=== PATIENT | male | born 1960 ===

== ENCOUNTER 2018-03-10 17:38 | Inpatient (IN) | payer MEDICAID, OTHER ==
[~2018-03-10] VITALS: Ht 175.3 cm; Wt 90.2 kg
[2018-03-10 18:19] LABS: BASOPHILS # (AUTO) 0.04 x10^3/uL (0-0.1); BASOPHILS % (AUTO) 0 % (0-1); EOSINOPHILS # (AUTO) 0.29 x10^3/uL (0-0.4); EOSINOPHILS % (AUTO) 2 % (1-7); LYMPHOCYTES # (AUTO) 0.57 x10^3/uL (1-3.4); LYMPHOCYTES % (AUTO) 4 % (22-44); MD NO; MEAN CORPUSCULAR HEMOGLOBIN 29.8 pg (27.5-34.5); MEAN CORPUSCULAR HGB CONC 32.9 g/dL (33.2-36.2); MEAN CORPUSCULAR VOLUME 90.6 fL (81-97); MEAN PLATELET VOLUME 7.1 fL (7.4-10.4); MONOCYTES # (AUTO) 0.69 x10^3/uL (0.2-0.8); MONOCYTES % (AUTO) 5 % (2-9); NEUTROPHILS # (AUTO) 11.15 x10^3/uL (1.8-6.8); NEUTROPHILS % (AUTO) 88 % (42-75); PLATELET COUNT 311 x10^3/uL (130-400); RED BLOOD COUNT 3.58 x10^6/uL (4.38-5.82); RED CELL DISTRIBUTION WIDTH 16.4 % (9.4-14.8)
[2018-03-10 18:30] LABS: ALBUMIN 1.4 g/dL (3.4-5.0); ANION GAP 5 mmol/L (5-15); CALCIUM 7.8 mg/dL (8.5-10.1); CHLORIDE 107 mmol/L (98-107); CREATININE 1.12 mg/dL (0.7-1.3)
[2018-03-10] MEDS ORDERED: PIPERACILLIN/TAZO/PMX 3.375GM 50 ML IV ONE (18:30)
[2018-03-10] MEDS ORDERED: PIPERACILLIN/TAZO/PMX 3.375GM 50 ML ONE (18:30)
[2018-03-10] MEDS ORDERED: VANCOMYCIN PER PHARMACY MC ONE (18:30)
[2018-03-10 18:41] LABS: TROPONIN I 0.229 ng/mL (0.000-0.045)
[2018-03-10] MEDS ORDERED: VANCOMYCIN 2,100 MG in SODIUM CHLORIDE 0.9% 500 ML IV ONE (19:00)
--- NOTE | 2018-03-10 19:00 | NUR ---
received report from fatomuata gatica. this rn will resume care at this time.
--- NOTE | 2018-03-10 19:05 | NUR ---
pts b/l legs elevated with pillows and heels floating. previous rn attempted iv multiple times and this rn asked fatoumata mahmood to use u/s to start iv. rn busy at this time but will attempt to start iv. pt asking for something to eat, pt informed that he is npo status at this time but this rn will ask the provider.
[2018-03-10] MEDS ORDERED: SODIUM CHLORIDE 0.9% 1,000 ML IV SCH (20:29)
[2018-03-10] MEDS ORDERED: VANCOMYCIN PER PHARMACY MC PRN (20:30)
[2018-03-10] MEDS ORDERED: PROMETHAZINE 25 MG/ML, 1ML IM PRN (20:30)
[2018-03-10] MEDS ORDERED: hydrALAzine 20 MG/ML, 1ML IVPush PRN (20:30)
[2018-03-10] MEDS ORDERED: ACETAMINOPHEN 325 MG TABLET PO PRN (20:30)
[2018-03-10] MEDS ORDERED: ONDANSETRON 2MG/ML, 2ML IVPush PRN (20:30)
[2018-03-10] MEDS ORDERED: POTASSIUM CHLORIDE 20 MEQ TAB.ER.PRT PO ONE (21:00)
[2018-03-10] MEDS ORDERED: PHARMACOKINETIC MONITORING MC PRN (22:30)
[2018-03-10] MEDS ORDERED: PHARMACOKINETIC CONSULTATION MC ONE (22:30)
[2018-03-10] MEDS ORDERED: GADOBUTROL 10 MMOL/10 ML PFS ONE (22:51)
[2018-03-11] MEDS: ENOXAPARIN 40 MG/0.4 ML SQ SCH ×2 (00:12→21:45)
[2018-03-11] MEDS: VANCOMYCIN 2,000 MG in SODIUM CHLORIDE 0.9% 500 ML IV SCH ×2 (00:13→17:31)
[2018-03-11] MEDS: INSULIN LISPRO 100 UNITS/ML, PEN SQ-INSULIN SCH ×5 (00:34→20:28)
[2018-03-11 01:00] VITALS: BP 137/92
[2018-03-11] MEDS: PIPERACILLIN/TAZO/PMX 4.5GM 100 ML IV SCH ×4 (02:25→21:46)
[2018-03-11 06:03] LABS: BASOPHILS # (AUTO) 0.04 x10^3/uL (0-0.1); BASOPHILS % (AUTO) 0 % (0-1); EOSINOPHILS # (AUTO) 0.34 x10^3/uL (0-0.4); EOSINOPHILS % (AUTO) 3 % (1-7); LYMPHOCYTES # (AUTO) 0.47 x10^3/uL (1-3.4); LYMPHOCYTES % (AUTO) 4 % (22-44); MD NO; MEAN CORPUSCULAR HEMOGLOBIN 29.5 pg (27.5-34.5); MEAN CORPUSCULAR HGB CONC 32.6 g/dL (33.2-36.2); MEAN CORPUSCULAR VOLUME 90.5 fL (81-97); MEAN PLATELET VOLUME 7.4 fL (7.4-10.4); MONOCYTES # (AUTO) 0.48 x10^3/uL (0.2-0.8); MONOCYTES % (AUTO) 4 % (2-9); NEUTROPHILS # (AUTO) 9.61 x10^3/uL (1.8-6.8); NEUTROPHILS % (AUTO) 88 % (42-75); PLATELET COUNT 291 x10^3/uL (130-400); RED BLOOD COUNT 3.53 x10^6/uL (4.38-5.82); RED CELL DISTRIBUTION WIDTH 15.9 % (9.4-14.8)
[2018-03-11 06:04] LABS: ALBUMIN 1.4 g/dL (3.4-5.0); ANION GAP 6 mmol/L (5-15); CALCIUM 7.4 mg/dL (8.5-10.1); CHLORIDE 112 mmol/L (98-107)
[2018-03-11 06:09] LABS: TROPONIN I 0.205 ng/mL (0.000-0.045)
[2018-03-11 06:17] LABS: % IRON SATURATION 18 % (20-55); ALANINE AMINOTRANSFERASE 16 U/L (12-78); ALKALINE PHOSPHATASE 104 U/L (45-117); BILIRUBIN,TOTAL 0.4 mg/dL (0.2-1.0); CREATININE 0.91 mg/dL (0.7-1.3); IRON LEVEL 31 mcg/dL (65-175); TOTAL IRON BINDING CAPACITY 171 mcg/dL (250-450); TOTAL PROTEIN 5.5 g/dL (6.4-8.2)
[2018-03-11 06:19] LABS: PREALBUMIN < 3.0 mg/dL (20.0-40.0)
[2018-03-11] MEDS ORDERED: MAGNESIUM SULFATE PMX 2GM/50ML 50 ML IV ONE (08:00)
[2018-03-11] MEDS: POTASSIUM CHLORIDE 20 MEQ TAB.ER.PRT PO SCH ×2 (08:23→17:33)
[2018-03-11] MEDS: FUROSEMIDE 40 MG/4 ML IV SCH ×2 (08:24→17:33)
[2018-03-11 08:37] VITALS: BP 120/77
[2018-03-11 09:38] LABS: HCT (SEDRATE) 31.9 % (39.2-51.8)
[2018-03-11 10:03] LABS: HEMOGLOBIN A1C 5.3 % (4.2-6.3)
[2018-03-11] MEDS: IRON SUCROSE COMPLEX 100MG/5ML IV SCH (14:12)
[2018-03-11 15:58] VITALS: BP 131/83
[2018-03-11 19:01] LABS: CLOSTRIDIUM DIFFICILE ANTIGEN NEGATIVE; CLOSTRIDIUM DIFFICILE TOXIN NEGATIVE (Negative)
[2018-03-11 19:09] VITALS: BP 132/84
[2018-03-12] MEDS: PIPERACILLIN/TAZO/PMX 4.5GM 100 ML IV SCH ×4 (02:23→22:02)
[2018-03-12 02:43] VITALS: BP 113/67
[2018-03-12 05:08] LABS: BASOPHILS # (AUTO) 0.06 x10^3/uL (0-0.1); BASOPHILS % (AUTO) 1 % (0-1); EOSINOPHILS # (AUTO) 0.34 x10^3/uL (0-0.4); EOSINOPHILS % (AUTO) 4 % (1-7); LYMPHOCYTES # (AUTO) 0.57 x10^3/uL (1-3.4); LYMPHOCYTES % (AUTO) 6 % (22-44); MD NO; MEAN CORPUSCULAR HEMOGLOBIN 30.4 pg (27.5-34.5); MEAN CORPUSCULAR HGB CONC 33.5 g/dL (33.2-36.2); MEAN CORPUSCULAR VOLUME 90.9 fL (81-97); MEAN PLATELET VOLUME 7.6 fL (7.4-10.4); MONOCYTES # (AUTO) 0.58 x10^3/uL (0.2-0.8); MONOCYTES % (AUTO) 6 % (2-9); NEUTROPHILS # (AUTO) 8.23 x10^3/uL (1.8-6.8); NEUTROPHILS % (AUTO) 84 % (42-75); PLATELET COUNT 258 x10^3/uL (130-400); RED BLOOD COUNT 2.94 x10^6/uL (4.38-5.82); RED CELL DISTRIBUTION WIDTH 16.7 % (9.4-14.8)
[2018-03-12 05:11] LABS: ANION GAP 5 mmol/L (5-15); CALCIUM 7.3 mg/dL (8.5-10.1); CHLORIDE 111 mmol/L (98-107); CREATININE 1.01 mg/dL (0.7-1.3)
[2018-03-12] MEDS: INSULIN LISPRO 100 UNITS/ML, PEN SQ-INSULIN SCH ×4 (07:00→21:00)
[2018-03-12 08:12] VITALS: BP 142/79
[2018-03-12] MEDS: FUROSEMIDE 40 MG/4 ML IV SCH ×2 (08:13→17:00)
[2018-03-12] MEDS: IRON SUCROSE COMPLEX 100MG/5ML IV SCH (08:13)
[2018-03-12] MEDS: POTASSIUM CHLORIDE 20 MEQ TAB.ER.PRT PO SCH ×2 (08:13→17:00)
[2018-03-12] MEDS ORDERED: ALBUMIN HUMAN 25% 100 ML IV ONE ×2 (10:00→19:00)
[2018-03-12] MEDS: VANCOMYCIN 2,000 MG in SODIUM CHLORIDE 0.9% 500 ML IV SCH (11:42)
[2018-03-12] MEDS ORDERED: FUROSEMIDE 40 MG/4 ML IV ONE ×2 (12:00→20:00)
[2018-03-12 14:19] VITALS: BP 158/74
[2018-03-12 19:54] VITALS: BP 137/88
[2018-03-12] MEDS: ENOXAPARIN 40 MG/0.4 ML SQ SCH (22:02)
[2018-03-13 00:31] VITALS: BP 132/85
[2018-03-13] MEDS: PIPERACILLIN/TAZO/PMX 4.5GM 100 ML IV SCH ×4 (02:33→22:01)
[2018-03-13 04:55] LABS: VANCOMYCIN,TROUGH 26.7 mcg/mL (5.0-10.0)
[2018-03-13] MEDS: INSULIN LISPRO 100 UNITS/ML, PEN SQ-INSULIN SCH ×4 (07:00→21:00)
[2018-03-13 07:17] VITALS: BP 122/81
[2018-03-13 09:55] LABS: ANION GAP 7 mmol/L (5-15); CALCIUM 7.6 mg/dL (8.5-10.1); CHLORIDE 111 mmol/L (98-107); CREATININE 1.15 mg/dL (0.7-1.3)
[2018-03-13 09:56] LABS: ALBUMIN 1.8 g/dL (3.4-5.0)
[2018-03-13 10:13] LABS: BASOPHILS # (AUTO) 0.02 x10^3/uL (0-0.1); BASOPHILS % (AUTO) 0 % (0-1); EOSINOPHILS # (AUTO) 0.32 x10^3/uL (0-0.4); EOSINOPHILS % (AUTO) 4 % (1-7); LYMPHOCYTES % (AUTO) 7 % (22-44); MD NO; MEAN CORPUSCULAR HEMOGLOBIN 29.6 pg (27.5-34.5); MEAN CORPUSCULAR HGB CONC 32.9 g/dL (33.2-36.2); MEAN CORPUSCULAR VOLUME 90.1 fL (81-97); MEAN PLATELET VOLUME 7.8 fL (7.4-10.4); MONOCYTES # (AUTO) 0.41 x10^3/uL (0.2-0.8); MONOCYTES % (AUTO) 5 % (2-9); NEUTROPHILS # (AUTO) 6.78 x10^3/uL (1.8-6.8); NEUTROPHILS % (AUTO) 83 % (42-75); PLATELET COUNT 258 x10^3/uL (130-400); RED CELL DISTRIBUTION WIDTH 16.8 % (9.4-14.8)
[2018-03-13] MEDS ORDERED: ALBUMIN HUMAN 25% 100 ML IV ONE ×2 (10:30→16:30)
[2018-03-13] MEDS: POTASSIUM CHLORIDE 20 MEQ TAB.ER.PRT PO SCH ×2 (10:57→18:03)
[2018-03-13] MEDS: IRON SUCROSE COMPLEX 100MG/5ML IV SCH (10:57)
[2018-03-13] MEDS: FUROSEMIDE 40 MG/4 ML IV SCH ×2 (13:36→22:01)
[2018-03-13 14:18] VITALS: BP 141/89
[2018-03-13] MEDS ORDERED: FUROSEMIDE 40 MG/4 ML IV ONE (17:30)
[2018-03-13] MEDS: ENOXAPARIN 40 MG/0.4 ML SQ SCH (17:45)
[2018-03-13 18:46] VITALS: BP 147/95
[2018-03-14 01:01] VITALS: BP 131/80
[2018-03-14] MEDS: PIPERACILLIN/TAZO/PMX 4.5GM 100 ML IV SCH ×4 (04:28→23:24)
[2018-03-14 06:50] VITALS: BP 135/79
[2018-03-14] MEDS: INSULIN LISPRO 100 UNITS/ML, PEN SQ-INSULIN SCH ×4 (07:00→21:00)
[2018-03-14] MEDS: FUROSEMIDE 40 MG/4 ML IV SCH ×2 (07:30→17:48)
[2018-03-14] MEDS: POTASSIUM CHLORIDE 20 MEQ TAB.ER.PRT PO SCH ×2 (08:00→17:48)
[2018-03-14] MEDS ORDERED: FENTANYL PF 250 MCG/5ML ONE (08:34)
[2018-03-14] MEDS ORDERED: MIDAZOLAM 1 MG/ML, 2ML ONE ×2 (08:34→19:04)
[2018-03-14] MEDS ORDERED: PROPOFOL 10 MG/ML, 20ML ONE ×2 (08:35→20:40)
[2018-03-14] MEDS ORDERED: NEOSTIGMINE 1 MG/ML, 10ML ONE (08:36)
[2018-03-14] MEDS ORDERED: GLYCOPYRROLATE 0.4 MG/2 ML, 2ML ONE (08:36)
[2018-03-14] MEDS ORDERED: ROCURONIUM 10MG/ML,5ML ONE (08:36)
[2018-03-14] MEDS ORDERED: CEFAZOLIN 1,000 MG ONE ×2 (08:37)
[2018-03-14] MEDS ORDERED: WATER-INJECTION,STERILE 10 ML IV ONE (08:37)
[2018-03-14] MEDS ORDERED: ONDANSETRON ODT 8 MG PO PRN ×2 (09:00→19:30)
[2018-03-14] MEDS ORDERED: hydrALAzine 20 MG/ML, 1ML IV PRN ×2 (09:00→19:30)
[2018-03-14] MEDS ORDERED: ONDANSETRON 2MG/ML, 2ML IV PRN ×2 (09:00→19:30)
[2018-03-14] MEDS ORDERED: PROMETHAZINE 12.5 MG SUPP PR PRN ×2 (09:00→19:30)
[2018-03-14] MEDS ORDERED: PROMETHAZINE 25 MG SUPP PR PRN ×2 (09:00→19:30)
[2018-03-14] MEDS ORDERED: PROMETHAZINE 25 MG/ML, 1ML IV PRN ×2 (09:00→19:30)
[2018-03-14] MEDS ORDERED: MORPHINE SULFATE 4 MG/ML, 1ML IVPush PRN ×2 (09:00→19:30)
[2018-03-14] MEDS ORDERED: OXYcodone 5 MG/5 ML ORAL.SOL UDC PO PRN ×2 (09:00→19:30)
[2018-03-14] MEDS: IRON SUCROSE COMPLEX 100MG/5ML IV SCH (09:00)
[2018-03-14] MEDS ORDERED: HYDROmorphone 1 MG/ML, 1ML IV PRN ×2 (09:00→19:30)
[2018-03-14] MEDS ORDERED: MEPERIDINE/PF 25MG/0.5ML IVPush PRN ×2 (09:00→19:30)
[2018-03-14] MEDS ORDERED: LABETALOL 5MG/ML, 20ML IV PRN ×2 (09:00→19:30)
[2018-03-14] MEDS ORDERED: PHENYLEPHRINE 10 MG/ML ONE (09:57)
[2018-03-14] MEDS ORDERED: SUGAMMADEX 200 MG/2 ML IVPush ONE (10:58)
[2018-03-14] MEDS ORDERED: FENTANYL PF 100 MCG/2ML ONE ×2 (11:24→19:04)
[2018-03-14] MEDS: FENTANYL PF 100 MCG/2ML IV PRN ×4 (11:25→11:45)
[2018-03-14] MEDS ORDERED: OXYcodone 5 MG/5 ML ORAL.SOL UDC ONE ×2 (11:51→21:32)
[2018-03-14] MEDS ORDERED: ACETAMINOPHEN 650 MG/20.3 ML UDC ONE (11:51)
[2018-03-14] MEDS: ALBUMIN HUMAN 25% 100 ML IV SCH ×2 (13:47→23:23)
[2018-03-14] MEDS ORDERED: MIDAZOLAM 1 MG/ML, 2ML IV PRN (19:30)
[2018-03-14] MEDS ORDERED: FENTANYL PF 100 MCG/2ML IV PRN (19:30)
[2018-03-14] MEDS: ENOXAPARIN 40 MG/0.4 ML SQ SCH (20:30)
[2018-03-14] MEDS ORDERED: FLUMAZENIL 0.1 MG/1 ML, 5ML ONE (21:15)
[2018-03-15 01:59] VITALS: BP 111/70
[2018-03-15] MEDS: morphine SULFATE 10 MG/ML, 1ML IVPush PRN ×2 (03:01→20:50)
[2018-03-15 05:20] LABS: ALBUMIN 2.3 g/dL (3.4-5.0); ANION GAP 3 mmol/L (5-15); BASOPHILS # (AUTO) 0.08 x10^3/uL (0-0.1); BASOPHILS % (AUTO) 1 % (0-1); CALCIUM 7.4 mg/dL (8.5-10.1); CHLORIDE 107 mmol/L (98-107); EOSINOPHILS # (AUTO) 0.42 x10^3/uL (0-0.4); EOSINOPHILS % (AUTO) 5 % (1-7); HCT (SEDRATE) 23.3 % (39.2-51.8); LYMPHOCYTES # (AUTO) 0.79 x10^3/uL (1-3.4); LYMPHOCYTES % (AUTO) 10 % (22-44); MD NO; MEAN CORPUSCULAR HGB CONC 32.7 g/dL (33.2-36.2); MEAN CORPUSCULAR VOLUME 91.8 fL (81-97); MONOCYTES # (AUTO) 0.56 x10^3/uL (0.2-0.8); MONOCYTES % (AUTO) 7 % (2-9); NEUTROPHILS # (AUTO) 5.87 x10^3/uL (1.8-6.8); NEUTROPHILS % (AUTO) 76 % (42-75); PLATELET COUNT 214 x10^3/uL (130-400); RED BLOOD COUNT 2.54 x10^6/uL (4.38-5.82); RED CELL DISTRIBUTION WIDTH 16.4 % (9.4-14.8)
[2018-03-15 05:29] LABS: ALANINE AMINOTRANSFERASE 12 U/L (12-78); ALKALINE PHOSPHATASE 64 U/L (45-117); BILIRUBIN,TOTAL 0.3 mg/dL (0.2-1.0); CREATININE 1.27 mg/dL (0.7-1.3); TOTAL PROTEIN 5.7 g/dL (6.4-8.2)
[2018-03-15] MEDS: ALBUMIN HUMAN 25% 100 ML IV SCH ×4 (05:41→23:34)
[2018-03-15] MEDS: PIPERACILLIN/TAZO/PMX 4.5GM 100 ML IV SCH ×3 (05:41→17:45)
[2018-03-15 06:48] VITALS: BP 107/64
[2018-03-15] MEDS: INSULIN LISPRO 100 UNITS/ML, PEN SQ-INSULIN SCH ×4 (07:00→20:50)
[2018-03-15] MEDS: POTASSIUM CHLORIDE 20 MEQ TAB.ER.PRT PO SCH ×2 (09:02→17:05)
[2018-03-15] MEDS: FUROSEMIDE 40 MG/4 ML IV SCH ×2 (09:02→17:06)
[2018-03-15] MEDS: IRON SUCROSE COMPLEX 100MG/5ML IV SCH (09:02)
[2018-03-15 12:45] VITALS: BP 114/70
[2018-03-15 20:00] VITALS: BP 119/71
[2018-03-15] MEDS: ENOXAPARIN 40 MG/0.4 ML SQ SCH (20:49)
[2018-03-15] MEDS: ONDANSETRON ODT 4 MG PO PRN (20:50)
[2018-03-16] VITALS (10 sets, daily range): BP systolic 112–153; BP diastolic 71–86
[2018-03-16] MEDS: PIPERACILLIN/TAZO/PMX 4.5GM 100 ML IV SCH ×4 (00:48→21:16)
[2018-03-16] MEDS: ALBUMIN HUMAN 25% 100 ML IV SCH ×3 (05:20→20:13)
[2018-03-16] MEDS: INSULIN LISPRO 100 UNITS/ML, PEN SQ-INSULIN SCH ×4 (07:00→21:00)
[2018-03-16] MEDS: POTASSIUM CHLORIDE 20 MEQ TAB.ER.PRT PO SCH ×2 (08:40→18:35)
[2018-03-16] MEDS: FUROSEMIDE 40 MG/4 ML IV SCH ×2 (08:40→20:13)
[2018-03-16] MEDS: IRON SUCROSE COMPLEX 100MG/5ML IV SCH (08:40)
[2018-03-16 08:49] LABS: CALCIUM 7.5 mg/dL (8.5-10.1); CREATININE 1.35 mg/dL (0.7-1.3)
[2018-03-16 08:55] LABS: ANION GAP 2 mmol/L (5-15); CHLORIDE 107 mmol/L (98-107)
--- NOTE | 2018-03-16 10:30 | NUR ---
Pt does NOT have an egg allergy. Got sick after eating old hard boiled egg and now cannot eat them plain but can eat food item with egg as an ingredient. "Eggs to eat" has already been removed from diet. Addendum: 03/16/18 at [address] Amended: Links added.
[2018-03-16 10:53] LABS: BASOPHILS # (AUTO) 0.03 x10^3/uL (0-0.1); BASOPHILS % (AUTO) 0 % (0-1); EOSINOPHILS # (AUTO) 0.27 x10^3/uL (0-0.4); EOSINOPHILS % (AUTO) 4 % (1-7); LYMPHOCYTES # (AUTO) 0.66 x10^3/uL (1-3.4); LYMPHOCYTES % (AUTO) 9 % (22-44); MD SCAN; MEAN CORPUSCULAR HEMOGLOBIN 30.1 pg (27.5-34.5); MEAN CORPUSCULAR HGB CONC 33.1 g/dL (33.2-36.2); MEAN CORPUSCULAR VOLUME 90.7 fL (81-97); MONOCYTES # (AUTO) 0.48 x10^3/uL (0.2-0.8); MONOCYTES % (AUTO) 6 % (2-9); NEUTROPHILS # (AUTO) 6.06 x10^3/uL (1.8-6.8); NEUTROPHILS % (AUTO) 81 % (42-75); PLATELET COUNT 182 x10^3/uL (130-400); RED BLOOD COUNT 2.26 x10^6/uL (4.38-5.82); RED CELL DISTRIBUTION WIDTH 16.8 % (9.4-14.8)
[2018-03-16] MEDS ORDERED: PLEASE ENTER ALLERGIES MC SCH (11:30)
[2018-03-16] MEDS: POLYETHYLENE GLYCOL 17 GM PACKET PO PRN (13:06)
[2018-03-16] MEDS ORDERED: MAGNESIUM CITRATE 300ML ORAL SOL PO ONE (13:30)
[2018-03-16] MEDS: morphine SULFATE 10 MG/ML, 1ML IVPush PRN (15:10)
[2018-03-16] MEDS ORDERED: MAGNESIUM CITRATE 300ML ORAL SOL ONE (18:30)
[2018-03-17 02:00] VITALS: BP 129/81
[2018-03-17] MEDS: ALBUMIN HUMAN 25% 100 ML IV SCH ×3 (02:01→17:37)
[2018-03-17] MEDS: PIPERACILLIN/TAZO/PMX 4.5GM 100 ML IV SCH ×4 (03:06→22:45)
[2018-03-17] MEDS: morphine SULFATE 10 MG/ML, 1ML IVPush PRN ×3 (03:47→23:07)
[2018-03-17] MEDS: ONDANSETRON ODT 4 MG PO PRN (03:54)
[2018-03-17] MEDS: INSULIN LISPRO 100 UNITS/ML, PEN SQ-INSULIN SCH (07:00)
[2018-03-17 07:09] VITALS: BP 132/78
[2018-03-17] MEDS: POLYETHYLENE GLYCOL 17 GM PACKET PO PRN (08:16)
[2018-03-17] MEDS: POTASSIUM CHLORIDE 20 MEQ TAB.ER.PRT PO SCH (08:17)
[2018-03-17] MEDS ORDERED: LIDOCAINE-MPF 2%, 2ML ONE (08:58)
[2018-03-17] MEDS: IRON SUCROSE COMPLEX 100MG/5ML IV SCH (10:38)
[2018-03-17 13:05] LABS: BASOPHILS # (AUTO) 0.04 x10^3/uL (0-0.1); BASOPHILS % (AUTO) 0 % (0-1); EOSINOPHILS # (AUTO) 0.49 x10^3/uL (0-0.4); EOSINOPHILS % (AUTO) 5 % (1-7); LYMPHOCYTES # (AUTO) 0.72 x10^3/uL (1-3.4); LYMPHOCYTES % (AUTO) 7 % (22-44); MD NO; MEAN CORPUSCULAR HEMOGLOBIN 29.5 pg (27.5-34.5); MEAN CORPUSCULAR HGB CONC 32.8 g/dL (33.2-36.2); MEAN PLATELET VOLUME 8.6 fL (7.4-10.4); MONOCYTES # (AUTO) 0.57 x10^3/uL (0.2-0.8); MONOCYTES % (AUTO) 6 % (2-9); NEUTROPHILS # (AUTO) 8.13 x10^3/uL (1.8-6.8); NEUTROPHILS % (AUTO) 82 % (42-75); PLATELET COUNT 192 x10^3/uL (130-400); RED BLOOD COUNT 2.86 x10^6/uL (4.38-5.82)
[2018-03-17 13:11] VITALS: BP 131/75
[2018-03-17 13:17] LABS: ANION GAP 3 mmol/L (5-15); CALCIUM 8.1 mg/dL (8.5-10.1); CHLORIDE 105 mmol/L (98-107); CREATININE 1.35 mg/dL (0.7-1.3)
[2018-03-17 13:18] LABS: ALBUMIN 2.9 g/dL (3.4-5.0)
[2018-03-17] MEDS ORDERED: METOLAZONE 5 MG TABLET PO ONE (13:30)
[2018-03-17] MEDS: FUROSEMIDE 40 MG/4 ML IV SCH ×2 (14:51→18:34)
[2018-03-17] MEDS ORDERED: GLYCERIN ADULT SUPP PR PRN (17:30)
[2018-03-17 20:00] VITALS: BP 139/73
[2018-03-18] MEDS: ALBUMIN HUMAN 25% 100 ML IV SCH ×4 (00:08→18:34)
[2018-03-18 02:00] VITALS: BP 126/80
[2018-03-18] MEDS: PIPERACILLIN/TAZO/PMX 4.5GM 100 ML IV SCH ×4 (04:30→22:41)
[2018-03-18 07:06] VITALS: BP 139/78
[2018-03-18] MEDS: FUROSEMIDE 40 MG/4 ML IV SCH ×2 (08:03→22:40)
[2018-03-18 08:31] LABS: BASOPHILS # (AUTO) 0.07 x10^3/uL (0-0.1); BASOPHILS % (AUTO) 1 % (0-1); EOSINOPHILS # (AUTO) 0.32 x10^3/uL (0-0.4); EOSINOPHILS % (AUTO) 3 % (1-7); LYMPHOCYTES # (AUTO) 0.66 x10^3/uL (1-3.4); LYMPHOCYTES % (AUTO) 7 % (22-44); MD NO; MEAN CORPUSCULAR HEMOGLOBIN 29.8 pg (27.5-34.5); MEAN CORPUSCULAR HGB CONC 33.4 g/dL (33.2-36.2); MEAN CORPUSCULAR VOLUME 89.3 fL (81-97); MEAN PLATELET VOLUME 8.5 fL (7.4-10.4); MONOCYTES # (AUTO) 0.63 x10^3/uL (0.2-0.8); MONOCYTES % (AUTO) 6 % (2-9); NEUTROPHILS # (AUTO) 8.35 x10^3/uL (1.8-6.8); NEUTROPHILS % (AUTO) 83 % (42-75); PLATELET COUNT 193 x10^3/uL (130-400); RED BLOOD COUNT 2.78 x10^6/uL (4.38-5.82); RED CELL DISTRIBUTION WIDTH 16.9 % (9.4-14.8)
[2018-03-18 08:35] LABS: ALBUMIN 3.4 g/dL (3.4-5.0); ANION GAP 5 mmol/L (5-15); CALCIUM 8.4 mg/dL (8.5-10.1); CHLORIDE 105 mmol/L (98-107); CREATININE 1.54 mg/dL (0.7-1.3)
[2018-03-18] MEDS: IRON SUCROSE COMPLEX 100MG/5ML IV SCH (08:36)
[2018-03-18] MEDS: morphine SULFATE 10 MG/ML, 1ML IVPush PRN ×3 (08:36→22:41)
[2018-03-18] MEDS ORDERED: PROPOFOL 10 MG/ML, 20ML ONE (14:30)
[2018-03-18] MEDS ORDERED: FENTANYL PF 100 MCG/2ML ONE ×2 (14:30→17:21)
[2018-03-18] MEDS ORDERED: WATER-INJECTION,STERILE 10 ML IV ONE (14:31)
[2018-03-18] MEDS ORDERED: CEFAZOLIN 1,000 MG ONE ×2 (14:31)
[2018-03-18] MEDS ORDERED: ROPIvacaine/PF 0.5%, 30 ML ONE (14:32)
[2018-03-18] MEDS ORDERED: BUPIVACAINE/PF 0.5% ONE ×2 (14:33→14:49)
[2018-03-18] MEDS ORDERED: EPINEPHRINE 1 MG/ML, 1ML ONE (14:49)
[2018-03-18] MEDS ORDERED: PHENYLEPHRINE 10 MG/ML ONE (15:13)
[2018-03-18] MEDS ORDERED: GLYCOPYRROLATE 0.2MG/1ML, 5ML ONE (15:13)
[2018-03-18] MEDS ORDERED: MEPERIDINE/PF 25MG/0.5ML IVPush PRN (15:30)
[2018-03-18] MEDS ORDERED: hydrALAzine 20 MG/ML, 1ML IV PRN (15:30)
[2018-03-18] MEDS ORDERED: HYDROmorphone 1 MG/ML, 1ML IV PRN (15:30)
[2018-03-18] MEDS ORDERED: MORPHINE SULFATE 4 MG/ML, 1ML IVPush PRN (15:30)
[2018-03-18] MEDS ORDERED: PROMETHAZINE 25 MG/ML, 1ML IV PRN (15:30)
[2018-03-18] MEDS ORDERED: PROMETHAZINE 25 MG SUPP PR PRN (15:30)
[2018-03-18] MEDS ORDERED: LABETALOL 5MG/ML, 20ML IV PRN (15:30)
[2018-03-18] MEDS ORDERED: OXYcodone 5 MG/5 ML ORAL.SOL UDC PO PRN (15:30)
[2018-03-18] MEDS ORDERED: PROMETHAZINE 12.5 MG SUPP PR PRN (15:30)
[2018-03-18] MEDS ORDERED: ONDANSETRON ODT 8 MG PO PRN (15:30)
[2018-03-18] MEDS ORDERED: ONDANSETRON 2MG/ML, 2ML IV PRN (15:30)
[2018-03-18] MEDS ORDERED: OXYcodone 5 MG/5 ML ORAL.SOL UDC ONE (17:01)
[2018-03-18] MEDS: FENTANYL PF 100 MCG/2ML IV PRN ×2 (17:20→17:25)
[2018-03-18 18:00] VITALS: BP 116/74
[2018-03-18 18:25] VITALS: BP 128/61
[2018-03-19 00:04] VITALS: BP 91/54
[2018-03-19] MEDS: ALBUMIN HUMAN 25% 100 ML IV SCH ×4 (01:06→20:16)
[2018-03-19] MEDS: PIPERACILLIN/TAZO/PMX 4.5GM 100 ML IV SCH ×4 (04:32→22:10)
[2018-03-19 07:03] VITALS: BP 115/72
[2018-03-19] MEDS: FUROSEMIDE 40 MG/4 ML IV SCH ×2 (08:02→16:36)
[2018-03-19] MEDS: morphine SULFATE 10 MG/ML, 1ML IVPush PRN (08:02)
[2018-03-19 08:18] LABS: MEAN CORPUSCULAR HEMOGLOBIN 29.6 pg (27.5-34.5); MEAN CORPUSCULAR HGB CONC 32.8 g/dL (33.2-36.2); MEAN CORPUSCULAR VOLUME 90.3 fL (81-97); MEAN PLATELET VOLUME 8.4 fL (7.4-10.4); PLATELET COUNT 250 x10^3/uL (130-400); RED BLOOD COUNT 2.67 x10^6/uL (4.38-5.82); RED CELL DISTRIBUTION WIDTH 16.8 % (9.4-14.8)
[2018-03-19 08:25] LABS: ANION GAP 5 mmol/L (5-15); CALCIUM 7.4 mg/dL (8.5-10.1); CHLORIDE 105 mmol/L (98-107); CREATININE 1.45 mg/dL (0.7-1.3)
[2018-03-19 08:44] LABS: BASOPHILS # (AUTO) 0.03 x10^3/uL (0-0.1); BASOPHILS % (AUTO) 0 % (0-1); EOSINOPHILS # (AUTO) 0.48 x10^3/uL (0-0.4); EOSINOPHILS % (AUTO) 3 % (1-7); LYMPHOCYTES # (AUTO) 0.81 x10^3/uL (1-3.4); LYMPHOCYTES % (AUTO) 5 % (22-44); MD SCAN; MONOCYTES # (AUTO) 0.72 x10^3/uL (0.2-0.8); MONOCYTES % (AUTO) 5 % (2-9); NEUTROPHILS # (AUTO) 13.23 x10^3/uL (1.8-6.8); NEUTROPHILS % (AUTO) 87 % (42-75)
[2018-03-19] MEDS ORDERED: PHARMACY MAY ADJ FOR RENAL FX MC PRN (09:30)
[2018-03-19] MEDS: IRON SUCROSE COMPLEX 100MG/5ML IV SCH (10:06)
[2018-03-19] MEDS: SENNA/DOCUSATE TABLET PO SCH (12:36)
[2018-03-19 13:13] VITALS: BP 112/68
[2018-03-19 18:42] VITALS: BP 137/61
[2018-03-20] VITALS (9 sets, daily range): BP systolic 104–125; BP diastolic 66–79
[2018-03-20] MEDS: ALBUMIN HUMAN 25% 100 ML IV SCH ×4 (01:14→19:01)
[2018-03-20] MEDS: PIPERACILLIN/TAZO/PMX 4.5GM 100 ML IV SCH ×4 (04:23→22:45)
[2018-03-20] MEDS: FUROSEMIDE 40 MG/4 ML IV SCH ×2 (07:30→17:52)
[2018-03-20 07:46] LABS: ANION GAP 6 mmol/L (5-15); CHLORIDE 103 mmol/L (98-107); CREATININE 1.48 mg/dL (0.7-1.3)
[2018-03-20 07:57] LABS: MEAN CORPUSCULAR HEMOGLOBIN 29.6 pg (27.5-34.5); MEAN CORPUSCULAR HGB CONC 32.7 g/dL (33.2-36.2); MEAN CORPUSCULAR VOLUME 90.6 fL (81-97); MEAN PLATELET VOLUME 8.3 fL (7.4-10.4); PLATELET COUNT 214 x10^3/uL (130-400); RED BLOOD COUNT 2.15 x10^6/uL (4.38-5.82); RED CELL DISTRIBUTION WIDTH 16.7 % (9.4-14.8)
[2018-03-20 08:25] LABS: BASOPHILS # (AUTO) 0.09 x10^3/uL (0-0.1); BASOPHILS % (AUTO) 1 % (0-1); EOSINOPHILS % (AUTO) 6 % (1-7); LYMPHOCYTES # (AUTO) 0.74 x10^3/uL (1-3.4); LYMPHOCYTES % (AUTO) 7 % (22-44); MD SCAN; MONOCYTES # (AUTO) 0.63 x10^3/uL (0.2-0.8); MONOCYTES % (AUTO) 6 % (2-9); NEUTROPHILS # (AUTO) 7.91 x10^3/uL (1.8-6.8); NEUTROPHILS % (AUTO) 79 % (42-75)
[2018-03-20] MEDS: SENNA/DOCUSATE TABLET PO SCH (08:52)
[2018-03-20] MEDS: GABAPENTIN 300 MG CAPSULE PO SCH ×3 (08:52→20:19)
[2018-03-20] MEDS: IRON SUCROSE COMPLEX 100MG/5ML IV SCH (08:52)
[2018-03-21 00:16] VITALS: BP 120/75
[2018-03-21] MEDS: ALBUMIN HUMAN 25% 100 ML IV SCH ×3 (00:45→13:00)
[2018-03-21] MEDS: PIPERACILLIN/TAZO/PMX 4.5GM 100 ML IV SCH ×4 (04:52→22:04)
[2018-03-21 07:21] VITALS: BP 113/70
[2018-03-21] MEDS: FUROSEMIDE 40 MG/4 ML IV SCH ×2 (08:08→17:14)
[2018-03-21] MEDS: IRON SUCROSE COMPLEX 100MG/5ML IV SCH (08:08)
[2018-03-21] MEDS: GABAPENTIN 300 MG CAPSULE PO SCH ×3 (08:08→20:21)
[2018-03-21] MEDS: SENNA/DOCUSATE TABLET PO SCH (08:09)
[2018-03-21 08:50] LABS: BASOPHILS # (AUTO) 0.06 x10^3/uL (0-0.1); BASOPHILS % (AUTO) 1 % (0-1); EOSINOPHILS # (AUTO) 0.54 x10^3/uL (0-0.4); EOSINOPHILS % (AUTO) 6 % (1-7); LYMPHOCYTES # (AUTO) 0.86 x10^3/uL (1-3.4); LYMPHOCYTES % (AUTO) 9 % (22-44); MD NO; MEAN CORPUSCULAR HEMOGLOBIN 30.1 pg (27.5-34.5); MEAN CORPUSCULAR HGB CONC 33.5 g/dL (33.2-36.2); MEAN PLATELET VOLUME 8.5 fL (7.4-10.4); MONOCYTES # (AUTO) 0.51 x10^3/uL (0.2-0.8); MONOCYTES % (AUTO) 6 % (2-9); NEUTROPHILS # (AUTO) 7.21 x10^3/uL (1.8-6.8); NEUTROPHILS % (AUTO) 79 % (42-75); PLATELET COUNT 216 x10^3/uL (130-400); RED CELL DISTRIBUTION WIDTH 16.8 % (9.4-14.8)
[2018-03-21 08:52] LABS: ANION GAP 3 mmol/L (5-15); CALCIUM 8.5 mg/dL (8.5-10.1); CHLORIDE 100 mmol/L (98-107); CREATININE 1.42 mg/dL (0.7-1.3)
[2018-03-21] MEDS: morphine SULFATE 10 MG/ML, 1ML IVPush PRN (10:47)
[2018-03-21 12:20] VITALS: BP 137/77
[2018-03-21] MEDS ORDERED: ENOXAPARIN 120MG/0.8ML SQ SCH (15:00)
[2018-03-21 20:00] VITALS: BP 100/65
[2018-03-22 02:00] VITALS: BP 113/69
[2018-03-22] MEDS: PIPERACILLIN/TAZO/PMX 4.5GM 100 ML IV SCH ×2 (04:35→10:23)
[2018-03-22 06:01] LABS: ALBUMIN 3.2 g/dL (3.4-5.0); ANION GAP 8 mmol/L (5-15); CALCIUM 8.3 mg/dL (8.5-10.1); CHLORIDE 99 mmol/L (98-107)
[2018-03-22 06:07] LABS: BASOPHILS # (AUTO) 0.07 x10^3/uL (0-0.1); BASOPHILS % (AUTO) 1 % (0-1); EOSINOPHILS # (AUTO) 0.39 x10^3/uL (0-0.4); EOSINOPHILS % (AUTO) 4 % (1-7); LYMPHOCYTES % (AUTO) 7 % (22-44); MD NO; MEAN CORPUSCULAR HEMOGLOBIN 29.7 pg (27.5-34.5); MEAN CORPUSCULAR HGB CONC 32.9 g/dL (33.2-36.2); MEAN CORPUSCULAR VOLUME 90.2 fL (81-97); MEAN PLATELET VOLUME 8.3 fL (7.4-10.4); MONOCYTES # (AUTO) 0.48 x10^3/uL (0.2-0.8); MONOCYTES % (AUTO) 5 % (2-9); NEUTROPHILS # (AUTO) 7.96 x10^3/uL (1.8-6.8); NEUTROPHILS % (AUTO) 83 % (42-75); PLATELET COUNT 208 x10^3/uL (130-400); RED BLOOD COUNT 2.62 x10^6/uL (4.38-5.82); RED CELL DISTRIBUTION WIDTH 17.1 % (9.4-14.8)
[2018-03-22 06:10] LABS: HCT (SEDRATE) 23.6 % (39.2-51.8)
[2018-03-22 06:12] LABS: ALANINE AMINOTRANSFERASE 12 U/L (12-78); ALKALINE PHOSPHATASE 74 U/L (45-117); BILIRUBIN,TOTAL 0.5 mg/dL (0.2-1.0); CREATININE 1.74 mg/dL (0.7-1.3); TOTAL PROTEIN 6.5 g/dL (6.4-8.2)
[2018-03-22] MEDS ORDERED: HEPARIN 5,000 UNITS/ML, 1ML SQ SCH (06:30)
[2018-03-22 07:02] VITALS: BP 127/82
[2018-03-22] MEDS: FUROSEMIDE 40 MG/4 ML IV SCH ×2 (08:27→16:10)
[2018-03-22] MEDS: GABAPENTIN 300 MG CAPSULE PO SCH ×3 (08:27→21:06)
[2018-03-22] MEDS: SENNA/DOCUSATE TABLET PO SCH (08:28)
[2018-03-22 13:33] VITALS: BP 101/52
[2018-03-22] MEDS: HEPARIN 5,000 UNITS/ML, 1ML IV ONE ×2 (15:54→18:25)
[2018-03-22] MEDS: HEPARIN 25,000 UNITS/500ML PMX 500 ML IV PRN (18:26)
[2018-03-22 20:00] VITALS: BP 119/68
[2018-03-23] MEDS: HEPARIN 5,000 UNITS/ML, 1ML IV PRN ×3 (00:37→15:29)
[2018-03-23 01:07] VITALS: BP 123/75
[2018-03-23 07:24] VITALS: BP 120/71
[2018-03-23 07:53] LABS: BASOPHILS # (AUTO) 0.08 x10^3/uL (0-0.1); BASOPHILS % (AUTO) 1 % (0-1); EOSINOPHILS # (AUTO) 0.61 x10^3/uL (0-0.4); EOSINOPHILS % (AUTO) 5 % (1-7); LYMPHOCYTES # (AUTO) 0.52 x10^3/uL (1-3.4); LYMPHOCYTES % (AUTO) 4 % (22-44); MD NO; MEAN CORPUSCULAR HEMOGLOBIN 30.1 pg (27.5-34.5); MEAN CORPUSCULAR HGB CONC 32.9 g/dL (33.2-36.2); MEAN CORPUSCULAR VOLUME 91.6 fL (81-97); MEAN PLATELET VOLUME 8.5 fL (7.4-10.4); MONOCYTES # (AUTO) 0.44 x10^3/uL (0.2-0.8); MONOCYTES % (AUTO) 4 % (2-9); NEUTROPHILS # (AUTO) 10.16 x10^3/uL (1.8-6.8); NEUTROPHILS % (AUTO) 86 % (42-75); PLATELET COUNT 216 x10^3/uL (130-400); RED BLOOD COUNT 2.72 x10^6/uL (4.38-5.82); RED CELL DISTRIBUTION WIDTH 17.9 % (9.4-14.8)
[2018-03-23 07:57] LABS: ALANINE AMINOTRANSFERASE 10 U/L (12-78); ANION GAP 6 mmol/L (5-15); CALCIUM 8.5 mg/dL (8.5-10.1); CHLORIDE 98 mmol/L (98-107)
[2018-03-23] MEDS: FUROSEMIDE 40 MG/4 ML IV SCH (08:01)
[2018-03-23] MEDS: SENNA/DOCUSATE TABLET PO SCH (08:01)
[2018-03-23] MEDS: GABAPENTIN 300 MG CAPSULE PO SCH ×3 (08:01→19:43)
[2018-03-23 08:02] LABS: ALKALINE PHOSPHATASE 88 U/L (45-117); BILIRUBIN,TOTAL 0.5 mg/dL (0.2-1.0); CREATININE 1.93 mg/dL (0.7-1.3); TOTAL PROTEIN 6.5 g/dL (6.4-8.2)
[2018-03-23 09:26] LABS: FREE T4 (FREE THYROXINE) 0.38 ng/dL (0.76-1.46); THYROID STIMULATING HORMONE 36.7 mIU/L (0.358-3.740)
[2018-03-23] MEDS: LEVOTHYROXINE 100 MCG TABLET PO SCH (10:05)
[2018-03-23 10:17] LABS: TRIGLYCERIDES 47 mg/dL (50-200); VLDL CHOLESTEROL 9 mg/dL (0-25)
[2018-03-23 10:18] LABS: HDL CHOLESTEROL (DIRECT) 18 mg/dL (40-60)
[2018-03-23 10:42] LABS: CHOL/HDL RATIO 2.8; LDL/HDL RATIO 1.3 (0.5-3.0)
[2018-03-23 10:44] LABS: CHOLESTEROL, TOTAL < 50 mg/dL (140-239); LDL CHOLESTEROL,CALCULATED 23 mg/dL (54-169)
[2018-03-23 11:42] LABS: MEAN CORPUSCULAR HEMOGLOBIN 30.5 pg (27.5-34.5); MEAN CORPUSCULAR HGB CONC 33.4 g/dL (33.2-36.2); MEAN CORPUSCULAR VOLUME 91.3 fL (81-97); PLATELET COUNT 215 x10^3/uL (130-400); RED BLOOD COUNT 2.62 x10^6/uL (4.38-5.82); RED CELL DISTRIBUTION WIDTH 17.5 % (9.4-14.8)
[2018-03-23 12:35] VITALS: BP 118/68
[2018-03-23 13:25] LABS: BASOPHILS # (AUTO) 0.09 x10^3/uL (0-0.1); BASOPHILS % (AUTO) 1 % (0-1); EOSINOPHILS # (AUTO) 0.67 x10^3/uL (0-0.4); EOSINOPHILS % (AUTO) 5 % (1-7); LYMPHOCYTES # (AUTO) 0.47 x10^3/uL (1-3.4); LYMPHOCYTES % (AUTO) 4 % (22-44); MD SCAN; MONOCYTES # (AUTO) 0.57 x10^3/uL (0.2-0.8); MONOCYTES % (AUTO) 4 % (2-9); NEUTROPHILS # (AUTO) 11.82 x10^3/uL (1.8-6.8); NEUTROPHILS % (AUTO) 87 % (42-75)
[2018-03-23] MEDS: HEPARIN 25,000 UNITS/500ML PMX 500 ML IV PRN (13:59)
[2018-03-23 19:41] VITALS: BP 132/82
[2018-03-23] MEDS: LOVASTATIN 10 MG TABLET PO SCH (19:43)
[2018-03-23 20:00] VITALS: BP 137/82
[2018-03-24 02:00] VITALS: BP 120/65
[2018-03-24] MEDS: HEPARIN 25,000 UNITS/500ML PMX 500 ML IV PRN (03:56)
[2018-03-24 05:45] LABS: ALBUMIN 2.8 g/dL (3.4-5.0); ANION GAP 8 mmol/L (5-15); CALCIUM 8.2 mg/dL (8.5-10.1); CHLORIDE 98 mmol/L (98-107)
[2018-03-24 05:47] LABS: MEAN CORPUSCULAR HGB CONC 33.6 g/dL (33.2-36.2); MEAN CORPUSCULAR VOLUME 92.4 fL (81-97); RED BLOOD COUNT 2.68 x10^6/uL (4.38-5.82); RED CELL DISTRIBUTION WIDTH 17.3 % (9.4-14.8)
[2018-03-24 05:51] LABS: ALANINE AMINOTRANSFERASE 8 U/L (12-78); ALKALINE PHOSPHATASE 94 U/L (45-117); BILIRUBIN,TOTAL 0.5 mg/dL (0.2-1.0); CREATININE 1.79 mg/dL (0.7-1.3); TOTAL PROTEIN 6.6 g/dL (6.4-8.2)
[2018-03-24] MEDS: ASPIRIN 81 MG TABLET EC PO SCH (06:06)
[2018-03-24] MEDS: LEVOTHYROXINE 100 MCG TABLET PO SCH (06:07)
[2018-03-24 06:17] LABS: BASOPHILS % (AUTO) 1 % (0-1); EOSINOPHILS # (AUTO) 0.66 x10^3/uL (0-0.4); EOSINOPHILS % (AUTO) 6 % (1-7); LYMPHOCYTES # (AUTO) 0.83 x10^3/uL (1-3.4); LYMPHOCYTES % (AUTO) 7 % (22-44); MD SCAN; MEAN PLATELET VOLUME 8.2 fL (7.4-10.4); MONOCYTES # (AUTO) 0.63 x10^3/uL (0.2-0.8); MONOCYTES % (AUTO) 6 % (2-9); NEUTROPHILS # (AUTO) 9.02 x10^3/uL (1.8-6.8); NEUTROPHILS % (AUTO) 80 % (42-75); PLATELET COUNT 225 x10^3/uL (130-400)
[2018-03-24 08:22] VITALS: BP 123/69
[2018-03-24] MEDS: GABAPENTIN 300 MG CAPSULE PO SCH ×3 (10:13→21:08)
[2018-03-24] MEDS: SENNA/DOCUSATE TABLET PO SCH (10:13)
[2018-03-24] MEDS: HEPARIN 5,000 UNITS/ML, 1ML IV PRN (13:31)
[2018-03-24 13:49] VITALS: BP 125/74
[2018-03-24] MEDS ORDERED: PHARMACY MAY ADJ FOR RENAL FX MC PRN (16:00)
[2018-03-24] MEDS: APIXABAN 5 MG TABLET PO SCH (21:08)
[2018-03-24] MEDS: LOVASTATIN 10 MG TABLET PO SCH (21:09)
[2018-03-24 21:21] VITALS: BP 152/80
[2018-03-25 01:16] VITALS: BP 108/68
[2018-03-25 05:23] LABS: MEAN CORPUSCULAR HEMOGLOBIN 30.9 pg (27.5-34.5); MEAN CORPUSCULAR HGB CONC 33.4 g/dL (33.2-36.2); MEAN CORPUSCULAR VOLUME 92.3 fL (81-97); MEAN PLATELET VOLUME 7.9 fL (7.4-10.4); PLATELET COUNT 229 x10^3/uL (130-400); RED BLOOD COUNT 2.55 x10^6/uL (4.38-5.82); RED CELL DISTRIBUTION WIDTH 18.4 % (9.4-14.8)
[2018-03-25 05:25] LABS: ANION GAP 5 mmol/L (5-15); CALCIUM 8.3 mg/dL (8.5-10.1); CHLORIDE 99 mmol/L (98-107)
[2018-03-25 05:27] LABS: CREATININE 1.65 mg/dL (0.7-1.3)
[2018-03-25] MEDS: ASPIRIN 81 MG TABLET EC PO SCH (05:42)
[2018-03-25] MEDS: LEVOTHYROXINE 100 MCG TABLET PO SCH (05:42)
[2018-03-25 05:49] LABS: BASOPHILS # (AUTO) 0.09 x10^3/uL (0-0.1); BASOPHILS % (AUTO) 1 % (0-1); EOSINOPHILS # (AUTO) 0.46 x10^3/uL (0-0.4); EOSINOPHILS % (AUTO) 6 % (1-7); LYMPHOCYTES # (AUTO) 0.68 x10^3/uL (1-3.4); LYMPHOCYTES % (AUTO) 9 % (22-44); MD SCAN; MONOCYTES % (AUTO) 8 % (2-9); NEUTROPHILS # (AUTO) 5.82 x10^3/uL (1.8-6.8); NEUTROPHILS % (AUTO) 76 % (42-75)
[2018-03-25] MEDS: APIXABAN 5 MG TABLET PO SCH ×2 (08:18→21:41)
[2018-03-25] MEDS: GABAPENTIN 300 MG CAPSULE PO SCH ×3 (08:18→21:41)
[2018-03-25] MEDS: SENNA/DOCUSATE TABLET PO SCH (08:18)
[2018-03-25 08:36] VITALS: BP 112/73
[2018-03-25 13:59] VITALS: BP 116/78
[2018-03-25] MEDS: FERROUS SULFATE 325 MG TABLET PO SCH (16:21)
[2018-03-25 19:55] VITALS: BP 129/65
[2018-03-25] MEDS: LOVASTATIN 10 MG TABLET PO SCH (21:41)
[2018-03-26 03:13] VITALS: BP 139/75
[2018-03-26 04:48] LABS: BASOPHILS # (AUTO) 0.06 x10^3/uL (0-0.1); BASOPHILS % (AUTO) 1 % (0-1); EOSINOPHILS # (AUTO) 0.56 x10^3/uL (0-0.4); EOSINOPHILS % (AUTO) 7 % (1-7); LYMPHOCYTES % (AUTO) 8 % (22-44); MD NO; MEAN CORPUSCULAR HEMOGLOBIN 30.2 pg (27.5-34.5); MEAN CORPUSCULAR HGB CONC 32.5 g/dL (33.2-36.2); MEAN CORPUSCULAR VOLUME 92.9 fL (81-97); MEAN PLATELET VOLUME 7.8 fL (7.4-10.4); MONOCYTES # (AUTO) 0.65 x10^3/uL (0.2-0.8); MONOCYTES % (AUTO) 8 % (2-9); NEUTROPHILS % (AUTO) 77 % (42-75); PLATELET COUNT 249 x10^3/uL (130-400)
[2018-03-26 04:58] LABS: ANION GAP 3 mmol/L (5-15); CALCIUM 8.5 mg/dL (8.5-10.1); CHLORIDE 101 mmol/L (98-107); CREATININE 1.29 mg/dL (0.7-1.3)
[2018-03-26] MEDS: LEVOTHYROXINE 100 MCG TABLET PO SCH (05:18)
[2018-03-26] MEDS: ASPIRIN 81 MG TABLET EC PO SCH (05:18)
[2018-03-26 08:18] VITALS: BP 123/81
[2018-03-26] MEDS: FERROUS SULFATE 325 MG TABLET PO SCH ×3 (10:21→16:10)
[2018-03-26] MEDS: APIXABAN 5 MG TABLET PO SCH ×2 (10:21→21:08)
[2018-03-26] MEDS: GABAPENTIN 300 MG CAPSULE PO SCH ×3 (10:21→21:08)
[2018-03-26] MEDS: SENNA/DOCUSATE TABLET PO SCH (10:22)
[2018-03-26 12:10] VITALS: BP 119/74
[2018-03-26 20:14] VITALS: BP 123/76
[2018-03-26] MEDS: LOVASTATIN 10 MG TABLET PO SCH (21:08)
[2018-03-26] MEDS: morphine SULFATE 10 MG/ML, 1ML IVPush PRN (21:16)
[2018-03-27 03:30] VITALS: BP 119/70
[2018-03-27] MEDS: ASPIRIN 81 MG TABLET EC PO SCH (06:30)
[2018-03-27] MEDS: LEVOTHYROXINE 100 MCG TABLET PO SCH (06:30)
[2018-03-27 08:09] VITALS: BP 145/77
[2018-03-27] MEDS: APIXABAN 5 MG TABLET PO SCH ×2 (08:39→20:27)
[2018-03-27] MEDS: GABAPENTIN 300 MG CAPSULE PO SCH ×3 (08:39→20:27)
[2018-03-27] MEDS: FERROUS SULFATE 325 MG TABLET PO SCH ×2 (08:39→12:07)
[2018-03-27] MEDS: SENNA/DOCUSATE TABLET PO SCH ×2 (08:39→14:46)
[2018-03-27 10:58] LABS: MEAN CORPUSCULAR HEMOGLOBIN 30.5 pg (27.5-34.5); MEAN CORPUSCULAR HGB CONC 33.1 g/dL (33.2-36.2); MEAN CORPUSCULAR VOLUME 92.1 fL (81-97); PLATELET COUNT 238 x10^3/uL (130-400); RED CELL DISTRIBUTION WIDTH 18.8 % (9.4-14.8)
[2018-03-27 11:01] LABS: ANION GAP 5 mmol/L (5-15); CALCIUM 8.6 mg/dL (8.5-10.1); CHLORIDE 99 mmol/L (98-107); CREATININE 1.24 mg/dL (0.7-1.3)
[2018-03-27 11:12] LABS: BASOPHILS # (AUTO) 0.07 x10^3/uL (0-0.1); BASOPHILS % (AUTO) 1 % (0-1); EOSINOPHILS # (AUTO) 0.51 x10^3/uL (0-0.4); EOSINOPHILS % (AUTO) 8 % (1-7); LYMPHOCYTES # (AUTO) 0.64 x10^3/uL (1-3.4); LYMPHOCYTES % (AUTO) 10 % (22-44); MD SCAN; MONOCYTES % (AUTO) 9 % (2-9); NEUTROPHILS # (AUTO) 4.92 x10^3/uL (1.8-6.8); NEUTROPHILS % (AUTO) 73 % (42-75)
[2018-03-27 11:55] LABS: ALBUMIN 2.8 g/dL (3.4-5.0); BILIRUBIN, DIRECT 0.2 mg/dL (0.1-0.2)
[2018-03-27 11:57] LABS: BILIRUBIN,INDIRECT 0.1 mg/dL (0.0-2.0); BILIRUBIN,TOTAL 0.3 mg/dL (0.2-1.0); TOTAL PROTEIN 7.1 g/dL (6.4-8.2)
[2018-03-27 12:04] VITALS: BP 131/86
[2018-03-27] MEDS: POLYETHYLENE GLYCOL 17 GM PACKET PO PRN (14:46)
[2018-03-27 15:26] LABS: CREATININE,URINE RANDOM 52.5 mg/dL
[2018-03-27] MEDS ORDERED: MAGNESIUM CITRATE 300ML ORAL SOL PO ONE (15:30)
[2018-03-27 15:32] LABS: MICROSCOPIC INDICATED
[2018-03-27 15:40] LABS: CULTURE INDICATED? YES
[2018-03-27] MEDS: LOVASTATIN 10 MG TABLET PO SCH (20:27)
[2018-03-27 20:37] VITALS: BP 123/75
[2018-03-27 21:29] LABS: OCCULT BLOOD NEGATIVE (NEGATIVE)
[2018-03-28 02:46] VITALS: BP 120/80
[2018-03-28 05:44] LABS: ANION GAP 4 mmol/L (5-15); CALCIUM 8.5 mg/dL (8.5-10.1); CHLORIDE 99 mmol/L (98-107)
[2018-03-28 05:46] LABS: CREATININE 1.22 mg/dL (0.7-1.3)
[2018-03-28 05:51] LABS: MEAN CORPUSCULAR HEMOGLOBIN 31.4 pg (27.5-34.5); MEAN CORPUSCULAR HGB CONC 33.8 g/dL (33.2-36.2); MEAN PLATELET VOLUME 8.1 fL (7.4-10.4); PLATELET COUNT 225 x10^3/uL (130-400); RED BLOOD COUNT 2.39 x10^6/uL (4.38-5.82); RED CELL DISTRIBUTION WIDTH 18.4 % (9.4-14.8)
[2018-03-28 06:49] LABS: BASOPHILS # (AUTO) 0.07 x10^3/uL (0-0.1); BASOPHILS % (AUTO) 1 % (0-1); EOSINOPHILS # (AUTO) 0.43 x10^3/uL (0-0.4); EOSINOPHILS % (AUTO) 5 % (1-7); LYMPHOCYTES # (AUTO) 0.66 x10^3/uL (1-3.4); LYMPHOCYTES % (AUTO) 8 % (22-44); MD SCAN; MONOCYTES # (AUTO) 0.83 x10^3/uL (0.2-0.8); MONOCYTES % (AUTO) 10 % (2-9); NEUTROPHILS # (AUTO) 6.23 x10^3/uL (1.8-6.8); NEUTROPHILS % (AUTO) 76 % (42-75)
[2018-03-28 07:02] VITALS: BP 134/84
[2018-03-28] MEDS: LEVOTHYROXINE 100 MCG TABLET PO SCH (07:22)
[2018-03-28] MEDS: ASPIRIN 81 MG TABLET EC PO SCH (07:22)
[2018-03-28] MEDS: GABAPENTIN 300 MG CAPSULE PO SCH ×3 (08:49→21:39)
[2018-03-28] MEDS: APIXABAN 5 MG TABLET PO SCH ×2 (08:49→21:39)
[2018-03-28] MEDS ORDERED: SODIUM POLYSTYRENE SULFONATE ORAL SUSP PO ONE (09:00)
[2018-03-28] MEDS ORDERED: SODIUM CHLORIDE 0.9% 1,000 ML IV SCH (11:00)
[2018-03-28 13:46] VITALS: BP 124/79
[2018-03-28 19:49] VITALS: BP 121/78
[2018-03-28] MEDS: LOVASTATIN 10 MG TABLET PO SCH (21:39)
[2018-03-29 01:43] VITALS: BP 120/82
[2018-03-29] MEDS: LEVOTHYROXINE 100 MCG TABLET PO SCH (05:29)
[2018-03-29] MEDS: ASPIRIN 81 MG TABLET EC PO SCH (05:29)
[2018-03-29 07:22] VITALS: BP 125/75
[2018-03-29] MEDS: GABAPENTIN 300 MG CAPSULE PO SCH ×3 (08:24→20:48)
[2018-03-29] MEDS: APIXABAN 5 MG TABLET PO SCH ×2 (08:24→20:48)
[2018-03-29 08:28] LABS: MEAN CORPUSCULAR HEMOGLOBIN 30.5 pg (27.5-34.5); MEAN CORPUSCULAR HGB CONC 33.1 g/dL (33.2-36.2); MEAN CORPUSCULAR VOLUME 92.1 fL (81-97); MEAN PLATELET VOLUME 7.6 fL (7.4-10.4); PLATELET COUNT 261 x10^3/uL (130-400); RED BLOOD COUNT 2.32 x10^6/uL (4.38-5.82); RED CELL DISTRIBUTION WIDTH 19.1 % (9.4-14.8)
[2018-03-29] MEDS: SENNA/DOCUSATE TABLET PO SCH (08:29)
[2018-03-29 08:38] LABS: ANION GAP 5 mmol/L (5-15); CALCIUM 8.5 mg/dL (8.5-10.1); CHLORIDE 101 mmol/L (98-107); CREATININE 1.14 mg/dL (0.7-1.3)
[2018-03-29 09:14] LABS: BASOPHILS # (AUTO) 0.07 x10^3/uL (0-0.1); BASOPHILS % (AUTO) 1 % (0-1); EOSINOPHILS # (AUTO) 0.58 x10^3/uL (0-0.4); EOSINOPHILS % (AUTO) 10 % (1-7); LYMPHOCYTES # (AUTO) 0.72 x10^3/uL (1-3.4); LYMPHOCYTES % (AUTO) 12 % (22-44); MD SCAN; MONOCYTES # (AUTO) 0.64 x10^3/uL (0.2-0.8); MONOCYTES % (AUTO) 11 % (2-9); NEUTROPHILS # (AUTO) 3.91 x10^3/uL (1.8-6.8); NEUTROPHILS % (AUTO) 66 % (42-75)
[2018-03-29 13:14] VITALS: BP 127/76
[2018-03-29 19:37] VITALS: BP 151/81
[2018-03-29] MEDS: LOVASTATIN 10 MG TABLET PO SCH (20:48)
[2018-03-30 01:33] VITALS: BP 136/80
[2018-03-30] MEDS: LEVOTHYROXINE 100 MCG TABLET PO SCH (05:30)
[2018-03-30] MEDS: ASPIRIN 81 MG TABLET EC PO SCH (05:30)
[2018-03-30 06:45] VITALS: BP 124/82
[2018-03-30] MEDS: SENNA/DOCUSATE TABLET PO SCH (08:16)
[2018-03-30] MEDS: APIXABAN 5 MG TABLET PO SCH ×2 (09:13→20:25)
[2018-03-30] MEDS: GABAPENTIN 300 MG CAPSULE PO SCH ×3 (09:13→20:25)
[2018-03-30 09:28] LABS: MEAN CORPUSCULAR HEMOGLOBIN 31.1 pg (27.5-34.5); MEAN CORPUSCULAR HGB CONC 33.5 g/dL (33.2-36.2); MEAN CORPUSCULAR VOLUME 92.6 fL (81-97); MEAN PLATELET VOLUME 7.5 fL (7.4-10.4); PLATELET COUNT 310 x10^3/uL (130-400); RED BLOOD COUNT 2.36 x10^6/uL (4.38-5.82); RED CELL DISTRIBUTION WIDTH 19.2 % (9.4-14.8)
[2018-03-30 09:38] LABS: ANION GAP 5 mmol/L (5-15); CALCIUM 8.5 mg/dL (8.5-10.1); CHLORIDE 105 mmol/L (98-107); CREATININE 1.07 mg/dL (0.7-1.3)
[2018-03-30 09:58] LABS: BASOPHILS # (AUTO) 0.05 x10^3/uL (0-0.1); BASOPHILS % (AUTO) 1 % (0-1); EOSINOPHILS # (AUTO) 0.56 x10^3/uL (0-0.4); EOSINOPHILS % (AUTO) 7 % (1-7); LYMPHOCYTES % (AUTO) 8 % (22-44); MD SCAN; MONOCYTES # (AUTO) 0.72 x10^3/uL (0.2-0.8); MONOCYTES % (AUTO) 10 % (2-9); NEUTROPHILS # (AUTO) 5.67 x10^3/uL (1.8-6.8); NEUTROPHILS % (AUTO) 75 % (42-75)
[2018-03-30 10:00] LABS: FREE T4 (FREE THYROXINE) 0.62 ng/dL (0.76-1.46)
[2018-03-30 13:01] VITALS: BP 136/86
[2018-03-30 19:00] VITALS: BP 119/76
[2018-03-30] MEDS: LOVASTATIN 10 MG TABLET PO SCH (20:24)
[2018-03-31 02:16] VITALS: BP 122/81
[2018-03-31] MEDS: LEVOTHYROXINE 100 MCG TABLET PO SCH (05:18)
[2018-03-31] MEDS: ASPIRIN 81 MG TABLET EC PO SCH (05:18)
[2018-03-31 08:30] VITALS: BP 116/74
[2018-03-31] MEDS: SENNA/DOCUSATE TABLET PO SCH (09:16)
[2018-03-31] MEDS: GABAPENTIN 300 MG CAPSULE PO SCH ×3 (09:17→20:30)
[2018-03-31] MEDS: APIXABAN 5 MG TABLET PO SCH ×2 (09:17→20:30)
[2018-03-31 10:18] LABS: ANION GAP 4 mmol/L (5-15); CALCIUM 8.7 mg/dL (8.5-10.1); CHLORIDE 104 mmol/L (98-107)
[2018-03-31 10:19] LABS: CREATININE 1.03 mg/dL (0.7-1.3)
[2018-03-31 12:17] VITALS: BP 125/67
[2018-03-31] MEDS: morphine SULFATE 10 MG/ML, 1ML IVPush PRN (16:44)
[2018-03-31 19:37] VITALS: BP 136/79
[2018-03-31] MEDS: LOVASTATIN 10 MG TABLET PO SCH (20:30)
[2018-04-01] VITALS (10 sets, daily range): BP systolic 104–145; BP diastolic 70–88
[2018-04-01] MEDS: LEVOTHYROXINE 125 MCG TABLET PO SCH (05:27)
[2018-04-01] MEDS: ASPIRIN 81 MG TABLET EC PO SCH (05:27)
[2018-04-01 06:15] LABS: MEAN CORPUSCULAR HEMOGLOBIN 31.5 pg (27.5-34.5); MEAN CORPUSCULAR HGB CONC 33.3 g/dL (33.2-36.2); MEAN CORPUSCULAR VOLUME 94.7 fL (81-97); PLATELET COUNT 316 x10^3/uL (130-400); RED BLOOD COUNT 2.24 x10^6/uL (4.38-5.82); RED CELL DISTRIBUTION WIDTH 21.1 % (9.4-14.8)
[2018-04-01 06:26] LABS: CHLORIDE 106 mmol/L (98-107)
[2018-04-01 06:31] LABS: ANION GAP 5 mmol/L (5-15); CALCIUM 8.7 mg/dL (8.5-10.1); CREATININE 1.09 mg/dL (0.7-1.3)
[2018-04-01 06:51] LABS: BASOPHILS # (AUTO) 0.09 x10^3/uL (0-0.1); BASOPHILS % (AUTO) 2 % (0-1); EOSINOPHILS # (AUTO) 0.57 x10^3/uL (0-0.4); EOSINOPHILS % (AUTO) 11 % (1-7); LYMPHOCYTES # (AUTO) 0.63 x10^3/uL (1-3.4); LYMPHOCYTES % (AUTO) 12 % (22-44); MD MORPH REVIEW ONLY; MONOCYTES # (AUTO) 0.56 x10^3/uL (0.2-0.8); MONOCYTES % (AUTO) 11 % (2-9); NEUTROPHILS # (AUTO) 3.45 x10^3/uL (1.8-6.8); NEUTROPHILS % (AUTO) 65 % (42-75)
[2018-04-01 06:53] LABS: ANISOCYTOSIS 1+
[2018-04-01 06:54] LABS: <PLATELET ESTIMATE> ADEQUATE; <PLT MORPHOLOGY> NORMAL PLT MORPH; POLYCHROMASIA 1+
[2018-04-01] MEDS: SENNA/DOCUSATE TABLET PO SCH (09:00)
[2018-04-01] MEDS: GABAPENTIN 300 MG CAPSULE PO SCH ×3 (10:42→21:09)
[2018-04-01] MEDS: APIXABAN 5 MG TABLET PO SCH ×2 (10:43→21:09)
[2018-04-01 13:21] LABS: CLOSTRIDIUM DIFFICILE ANTIGEN NEGATIVE; CLOSTRIDIUM DIFFICILE TOXIN NEGATIVE (Negative)
[2018-04-01 14:15] LABS: OCCULT BLOOD POSITIVE (NEGATIVE)
[2018-04-01] MEDS ORDERED: DIPHENOXYLATE/ATROPINE TABLET PO PRN (14:30)
[2018-04-01] MEDS: LOVASTATIN 10 MG TABLET PO SCH (21:09)
[2018-04-02 01:34] VITALS: BP 144/96
[2018-04-02] MEDS: ASPIRIN 81 MG TABLET EC PO SCH (06:18)
[2018-04-02] MEDS: LEVOTHYROXINE 125 MCG TABLET PO SCH (06:18)
[2018-04-02 07:14] VITALS: BP 119/76
[2018-04-02] MEDS: SENNA/DOCUSATE TABLET PO SCH (09:00)
[2018-04-02] MEDS: GABAPENTIN 300 MG CAPSULE PO SCH ×3 (09:02→20:08)
[2018-04-02] MEDS: APIXABAN 5 MG TABLET PO SCH ×2 (09:02→20:08)
[2018-04-02 13:48] VITALS: BP 128/85
[2018-04-02 19:13] VITALS: BP 147/87
[2018-04-02] MEDS: LOVASTATIN 10 MG TABLET PO SCH (20:08)
[2018-04-03] MEDS: LEVOTHYROXINE 125 MCG TABLET PO SCH (05:36)
[2018-04-03] MEDS: ASPIRIN 81 MG TABLET EC PO SCH (05:36)
[2018-04-03 06:54] VITALS: BP 145/82
[2018-04-03 08:43] LABS: MEAN CORPUSCULAR HEMOGLOBIN 30.5 pg (27.5-34.5); MEAN CORPUSCULAR HGB CONC 33.2 g/dL (33.2-36.2); MEAN CORPUSCULAR VOLUME 91.9 fL (81-97); MEAN PLATELET VOLUME 7.8 fL (7.4-10.4); PLATELET COUNT 362 x10^3/uL (130-400); RED BLOOD COUNT 2.44 x10^6/uL (4.38-5.82); RED CELL DISTRIBUTION WIDTH 21.1 % (9.4-14.8)
[2018-04-03 08:51] LABS: ANION GAP 6 mmol/L (5-15); CALCIUM 8.3 mg/dL (8.5-10.1); CHLORIDE 108 mmol/L (98-107); CREATININE 1.08 mg/dL (0.7-1.3)
[2018-04-03] MEDS: SENNA/DOCUSATE TABLET PO SCH (09:00)
[2018-04-03] MEDS: APIXABAN 5 MG TABLET PO SCH ×2 (09:06→20:39)
[2018-04-03] MEDS: GABAPENTIN 300 MG CAPSULE PO SCH ×3 (09:06→20:39)
[2018-04-03 09:11] LABS: BASOPHILS # (AUTO) 0.11 x10^3/uL (0-0.1); BASOPHILS % (AUTO) 2 % (0-1); EOSINOPHILS # (AUTO) 0.52 x10^3/uL (0-0.4); EOSINOPHILS % (AUTO) 8 % (1-7); LYMPHOCYTES # (AUTO) 0.67 x10^3/uL (1-3.4); LYMPHOCYTES % (AUTO) 10 % (22-44); MD SCAN; MONOCYTES # (AUTO) 0.54 x10^3/uL (0.2-0.8); MONOCYTES % (AUTO) 8 % (2-9); NEUTROPHILS # (AUTO) 4.88 x10^3/uL (1.8-6.8); NEUTROPHILS % (AUTO) 73 % (42-75)
[2018-04-03 13:30] VITALS: BP 129/83
[2018-04-03 20:00] VITALS: BP 128/77
[2018-04-03] MEDS: LOVASTATIN 10 MG TABLET PO SCH (20:39)
[2018-04-04 01:36] VITALS: BP 141/84
[2018-04-04] MEDS: ASPIRIN 81 MG TABLET EC PO SCH (05:37)
[2018-04-04] MEDS: LEVOTHYROXINE 150 MCG TABLET PO SCH (05:37)
[2018-04-04 07:31] VITALS: BP 125/75
[2018-04-04] MEDS: SENNA/DOCUSATE TABLET PO SCH (07:55)
[2018-04-04] MEDS: GABAPENTIN 300 MG CAPSULE PO SCH ×3 (09:05→20:15)
[2018-04-04] MEDS: APIXABAN 5 MG TABLET PO SCH ×2 (09:05→20:15)
[2018-04-04 13:14] VITALS: BP 122/79
[2018-04-04] MEDS: morphine SULFATE 10 MG/ML, 1ML IVPush PRN (13:27)
[2018-04-04 20:00] VITALS: BP 139/84
[2018-04-04] MEDS: LOVASTATIN 10 MG TABLET PO SCH (20:15)
[2018-04-05 01:19] VITALS: BP 115/81
[2018-04-05 05:23] LABS: MEAN CORPUSCULAR HEMOGLOBIN 31.5 pg (27.5-34.5); MEAN CORPUSCULAR HGB CONC 33.5 g/dL (33.2-36.2); MEAN CORPUSCULAR VOLUME 93.9 fL (81-97); MEAN PLATELET VOLUME 7.8 fL (7.4-10.4); PLATELET COUNT 359 x10^3/uL (130-400); RED BLOOD COUNT 2.41 x10^6/uL (4.38-5.82); RED CELL DISTRIBUTION WIDTH 21.2 % (9.4-14.8)
[2018-04-05 05:34] LABS: CHLORIDE 108 mmol/L (98-107)
[2018-04-05 05:54] LABS: ANION GAP 5 mmol/L (5-15); CALCIUM 8.3 mg/dL (8.5-10.1); CREATININE 1.03 mg/dL (0.7-1.3)
[2018-04-05] MEDS: ASPIRIN 81 MG TABLET EC PO SCH (06:00)
[2018-04-05] MEDS: LEVOTHYROXINE 150 MCG TABLET PO SCH (06:07)
[2018-04-05 06:28] LABS: BASOPHILS # (AUTO) 0.04 x10^3/uL (0-0.1); BASOPHILS % (AUTO) 1 % (0-1); EOSINOPHILS # (AUTO) 0.57 x10^3/uL (0-0.4); EOSINOPHILS % (AUTO) 9 % (1-7); LYMPHOCYTES # (AUTO) 0.56 x10^3/uL (1-3.4); LYMPHOCYTES % (AUTO) 8 % (22-44); MD SCAN; MONOCYTES # (AUTO) 0.62 x10^3/uL (0.2-0.8); MONOCYTES % (AUTO) 9 % (2-9); NEUTROPHILS # (AUTO) 4.86 x10^3/uL (1.8-6.8); NEUTROPHILS % (AUTO) 73 % (42-75)
[2018-04-05 07:05] VITALS: BP 117/75
[2018-04-05] MEDS: SENNA/DOCUSATE TABLET PO SCH (08:23)
[2018-04-05] MEDS: APIXABAN 5 MG TABLET PO SCH ×2 (08:24→21:09)
[2018-04-05] MEDS: GABAPENTIN 300 MG CAPSULE PO SCH ×3 (08:24→21:09)
[2018-04-05 12:36] VITALS: BP 104/69
[2018-04-05 20:00] VITALS: BP 133/86
[2018-04-05] MEDS: LOVASTATIN 10 MG TABLET PO SCH (21:09)
[2018-04-06 02:00] VITALS: BP 134/81
[2018-04-06] MEDS: LEVOTHYROXINE 150 MCG TABLET PO SCH (05:05)
[2018-04-06] MEDS: ASPIRIN 81 MG TABLET EC PO SCH (05:05)
[2018-04-06 07:30] VITALS: BP 134/82
[2018-04-06] MEDS: SENNA/DOCUSATE TABLET PO SCH (09:00)
[2018-04-06] MEDS: APIXABAN 5 MG TABLET PO SCH ×2 (09:34→21:50)
[2018-04-06] MEDS: GABAPENTIN 300 MG CAPSULE PO SCH ×3 (09:34→21:50)
[2018-04-06 12:38] VITALS: BP 130/81
[2018-04-06 20:00] VITALS: BP 114/74
[2018-04-06] MEDS: LOVASTATIN 10 MG TABLET PO SCH (21:50)
[2018-04-06] MEDS: morphine SULFATE 10 MG/ML, 1ML IVPush PRN (23:06)
[2018-04-07 01:55] VITALS: BP 126/86
[2018-04-07] MEDS: ASPIRIN 81 MG TABLET EC PO SCH (04:57)
[2018-04-07 05:02] LABS: ANION GAP 6 mmol/L (5-15); CALCIUM 7.9 mg/dL (8.5-10.1); CHLORIDE 108 mmol/L (98-107)
[2018-04-07] MEDS: LEVOTHYROXINE 150 MCG TABLET PO SCH (05:02)
[2018-04-07 05:04] LABS: CREATININE 1.01 mg/dL (0.7-1.3)
[2018-04-07 05:06] LABS: MEAN CORPUSCULAR HEMOGLOBIN 31.1 pg (27.5-34.5); MEAN CORPUSCULAR HGB CONC 33.1 g/dL (33.2-36.2); MEAN PLATELET VOLUME 7.8 fL (7.4-10.4); PLATELET COUNT 354 x10^3/uL (130-400); RED BLOOD COUNT 2.43 x10^6/uL (4.38-5.82); RED CELL DISTRIBUTION WIDTH 21.3 % (9.4-14.8)
[2018-04-07 05:47] LABS: BASOPHILS # (AUTO) 0.08 x10^3/uL (0-0.1); BASOPHILS % (AUTO) 1 % (0-1); EOSINOPHILS # (AUTO) 0.56 x10^3/uL (0-0.4); EOSINOPHILS % (AUTO) 10 % (1-7); LYMPHOCYTES # (AUTO) 0.62 x10^3/uL (1-3.4); LYMPHOCYTES % (AUTO) 11 % (22-44); MD SCAN; MONOCYTES # (AUTO) 0.72 x10^3/uL (0.2-0.8); MONOCYTES % (AUTO) 12 % (2-9); NEUTROPHILS # (AUTO) 3.88 x10^3/uL (1.8-6.8); NEUTROPHILS % (AUTO) 66 % (42-75)
[2018-04-07 08:07] VITALS: BP 137/86
[2018-04-07] MEDS: SENNA/DOCUSATE TABLET PO SCH (09:00)
[2018-04-07] MEDS: APIXABAN 5 MG TABLET PO SCH ×2 (09:07→21:15)
[2018-04-07] MEDS: GABAPENTIN 300 MG CAPSULE PO SCH ×3 (09:07→21:15)
[2018-04-07 13:03] VITALS: BP 125/71
[2018-04-07 18:50] VITALS: BP 123/78
[2018-04-07] MEDS: LOVASTATIN 10 MG TABLET PO SCH (21:15)
[2018-04-08 00:26] VITALS: BP 135/83
[2018-04-08] MEDS: LEVOTHYROXINE 150 MCG TABLET PO SCH (05:01)
[2018-04-08] MEDS: ASPIRIN 81 MG TABLET EC PO SCH (05:01)
[2018-04-08 05:31] LABS: ANION GAP 7 mmol/L (5-15); CALCIUM 8.2 mg/dL (8.5-10.1); CHLORIDE 108 mmol/L (98-107); CREATININE 1.13 mg/dL (0.7-1.3)
[2018-04-08 08:21] VITALS: BP 119/74
[2018-04-08] MEDS: APIXABAN 5 MG TABLET PO SCH ×2 (09:29→19:44)
[2018-04-08] MEDS: GABAPENTIN 300 MG CAPSULE PO SCH ×3 (09:29→19:44)
[2018-04-08] MEDS: LISINOPRIL 5 MG TABLET PO SCH (09:29)
[2018-04-08] MEDS: SENNA/DOCUSATE TABLET PO SCH (09:29)
[2018-04-08 14:53] VITALS: BP 117/75
[2018-04-08] MEDS: LOVASTATIN 10 MG TABLET PO SCH (19:44)
[2018-04-08 19:59] VITALS: BP 113/71
[2018-04-08] MEDS ORDERED: VANCOMYCIN PER PHARMACY MC PRN (22:00)
[2018-04-08] MEDS ORDERED: VANCOMYCIN 2,000 MG in SODIUM CHLORIDE 0.9% 500 ML IV SCH (22:30)
[2018-04-08] MEDS ORDERED: PHARMACOKINETIC MONITORING MC PRN (22:30)
[2018-04-08] MEDS ORDERED: PHARMACOKINETIC CONSULTATION MC ONE (22:30)
[2018-04-08] MEDS: PIPERACILLIN/TAZO/PMX 3.375GM 50 ML IV SCH (22:48)
[2018-04-09 01:48] VITALS: BP 115/72
[2018-04-09] MEDS: ASPIRIN 81 MG TABLET EC PO SCH (05:01)
[2018-04-09] MEDS: LEVOTHYROXINE 150 MCG TABLET PO SCH (05:01)
[2018-04-09] MEDS: PIPERACILLIN/TAZO/PMX 3.375GM 50 ML IV SCH ×4 (05:02→23:31)
[2018-04-09 05:40] LABS: CREATININE 1.03 mg/dL (0.7-1.3)
[2018-04-09 09:14] VITALS: BP 115/75
[2018-04-09] MEDS: SENNA/DOCUSATE TABLET PO SCH (09:16)
[2018-04-09] MEDS: APIXABAN 5 MG TABLET PO SCH ×2 (09:16→21:01)
[2018-04-09] MEDS: LISINOPRIL 5 MG TABLET PO SCH (09:16)
[2018-04-09] MEDS: GABAPENTIN 300 MG CAPSULE PO SCH ×3 (09:16→21:01)
[2018-04-09 10:00] LABS: MEAN CORPUSCULAR HEMOGLOBIN 30.3 pg (27.5-34.5); MEAN CORPUSCULAR HGB CONC 32.2 g/dL (33.2-36.2); MEAN CORPUSCULAR VOLUME 94.2 fL (81-97); MEAN PLATELET VOLUME 7.6 fL (7.4-10.4); PLATELET COUNT 309 x10^3/uL (130-400); RED BLOOD COUNT 2.52 x10^6/uL (4.38-5.82); RED CELL DISTRIBUTION WIDTH 20.4 % (9.4-14.8)
[2018-04-09 10:01] LABS: ALBUMIN 2.4 g/dL (3.4-5.0); ANION GAP 8 mmol/L (5-15); CALCIUM 8.1 mg/dL (8.5-10.1); CHLORIDE 108 mmol/L (98-107); CREATININE 0.99 mg/dL (0.7-1.3)
[2018-04-09 10:08] LABS: ALANINE AMINOTRANSFERASE 16 U/L (12-78); ALKALINE PHOSPHATASE 191 U/L (45-117); BILIRUBIN,TOTAL 0.3 mg/dL (0.2-1.0)
[2018-04-09 10:25] LABS: ANISOCYTOSIS 1+; BASOPHILS # (AUTO) 0.06 x10^3/uL (0-0.1); BASOPHILS % (AUTO) 1 % (0-1); EOSINOPHILS # (AUTO) 0.42 x10^3/uL (0-0.4); EOSINOPHILS % (AUTO) 5 % (1-7); LYMPHOCYTES # (AUTO) 0.43 x10^3/uL (1-3.4); LYMPHOCYTES % (AUTO) 5 % (22-44); MD MORPH REVIEW ONLY; MONOCYTES # (AUTO) 0.67 x10^3/uL (0.2-0.8); MONOCYTES % (AUTO) 8 % (2-9); NEUTROPHILS # (AUTO) 6.62 x10^3/uL (1.8-6.8); NEUTROPHILS % (AUTO) 81 % (42-75)
[2018-04-09 10:26] LABS: <PLATELET ESTIMATE> ADEQUATE; <PLT MORPHOLOGY> NORMAL PLT MORPH; HYPOCHROMIA 1+; POLYCHROMASIA 1+
[2018-04-09 12:15] LABS: OCCULT BLOOD POSITIVE (NEGATIVE)
[2018-04-09 16:00] VITALS: BP 114/72
[2018-04-09 19:54] VITALS: BP 119/75
[2018-04-09] MEDS: LOVASTATIN 10 MG TABLET PO SCH (21:01)
[2018-04-10 02:12] VITALS: BP 129/80
[2018-04-10 04:39] LABS: ALBUMIN 2.4 g/dL (3.4-5.0); ANION GAP 6 mmol/L (5-15); CALCIUM 8.2 mg/dL (8.5-10.1); CHLORIDE 109 mmol/L (98-107)
[2018-04-10 04:41] LABS: BASOPHILS % (AUTO) 2 % (0-1); EOSINOPHILS # (AUTO) 0.46 x10^3/uL (0-0.4); EOSINOPHILS % (AUTO) 8 % (1-7); LYMPHOCYTES # (AUTO) 0.57 x10^3/uL (1-3.4); LYMPHOCYTES % (AUTO) 10 % (22-44); MD NO; MEAN CORPUSCULAR HEMOGLOBIN 31.1 pg (27.5-34.5); MEAN CORPUSCULAR HGB CONC 32.9 g/dL (33.2-36.2); MEAN CORPUSCULAR VOLUME 94.6 fL (81-97); MEAN PLATELET VOLUME 7.7 fL (7.4-10.4); MONOCYTES # (AUTO) 0.65 x10^3/uL (0.2-0.8); MONOCYTES % (AUTO) 11 % (2-9); NEUTROPHILS # (AUTO) 4.18 x10^3/uL (1.8-6.8); NEUTROPHILS % (AUTO) 70 % (42-75); PLATELET COUNT 291 x10^3/uL (130-400); RED BLOOD COUNT 2.43 x10^6/uL (4.38-5.82); RED CELL DISTRIBUTION WIDTH 20.5 % (9.4-14.8)
[2018-04-10 04:42] LABS: ALANINE AMINOTRANSFERASE 13 U/L (12-78); ALKALINE PHOSPHATASE 162 U/L (45-117); BILIRUBIN,TOTAL 0.3 mg/dL (0.2-1.0); CREATININE 1.12 mg/dL (0.7-1.3); TOTAL PROTEIN 6.9 g/dL (6.4-8.2)
[2018-04-10] MEDS: ASPIRIN 81 MG TABLET EC PO SCH (05:19)
[2018-04-10] MEDS: PIPERACILLIN/TAZO/PMX 3.375GM 50 ML IV SCH ×2 (05:19→11:56)
[2018-04-10] MEDS: LEVOTHYROXINE 150 MCG TABLET PO SCH (05:19)
[2018-04-10 07:47] VITALS: BP 107/70
[2018-04-10] MEDS: SENNA/DOCUSATE TABLET PO SCH (09:00)
[2018-04-10] MEDS: APIXABAN 5 MG TABLET PO SCH ×2 (09:16→20:33)
[2018-04-10] MEDS: GABAPENTIN 300 MG CAPSULE PO SCH ×3 (09:16→20:33)
[2018-04-10] MEDS: LISINOPRIL 5 MG TABLET PO SCH (09:17)
[2018-04-10 13:28] VITALS: BP 110/72
[2018-04-10] MEDS: CEFTRIAXONE 2 GM in SODIUM CHLORIDE 0.9% 50 ML IV SCH (15:03)
[2018-04-10 20:00] VITALS: BP 117/78
[2018-04-10] MEDS: LOVASTATIN 10 MG TABLET PO SCH (20:33)
[2018-04-11 01:45] VITALS: BP 124/83
[2018-04-11 05:19] LABS: BASOPHILS # (AUTO) 0.13 x10^3/uL (0-0.1); BASOPHILS % (AUTO) 2 % (0-1); EOSINOPHILS # (AUTO) 0.43 x10^3/uL (0-0.4); EOSINOPHILS % (AUTO) 7 % (1-7); LYMPHOCYTES # (AUTO) 0.63 x10^3/uL (1-3.4); LYMPHOCYTES % (AUTO) 11 % (22-44); MD NO; MEAN CORPUSCULAR HEMOGLOBIN 30.5 pg (27.5-34.5); MEAN CORPUSCULAR VOLUME 92.2 fL (81-97); MEAN PLATELET VOLUME 7.8 fL (7.4-10.4); MONOCYTES # (AUTO) 0.68 x10^3/uL (0.2-0.8); MONOCYTES % (AUTO) 11 % (2-9); NEUTROPHILS # (AUTO) 4.08 x10^3/uL (1.8-6.8); NEUTROPHILS % (AUTO) 69 % (42-75); PLATELET COUNT 299 x10^3/uL (130-400); RED BLOOD COUNT 2.62 x10^6/uL (4.38-5.82); RED CELL DISTRIBUTION WIDTH 19.8 % (9.4-14.8)
[2018-04-11] MEDS: ASPIRIN 81 MG TABLET EC PO SCH (05:36)
[2018-04-11] MEDS: LEVOTHYROXINE 150 MCG TABLET PO SCH (05:36)
[2018-04-11 05:39] LABS: CHLORIDE 110 mmol/L (98-107)
[2018-04-11 05:51] LABS: ALANINE AMINOTRANSFERASE 13 U/L (12-78); ALBUMIN 2.4 g/dL (3.4-5.0); ALKALINE PHOSPHATASE 189 U/L (45-117); ANION GAP 5 mmol/L (5-15); BILIRUBIN,TOTAL 0.3 mg/dL (0.2-1.0); CALCIUM 8.2 mg/dL (8.5-10.1); CREATININE 1.15 mg/dL (0.7-1.3); TOTAL PROTEIN 7.2 g/dL (6.4-8.2)
[2018-04-11 07:23] VITALS: BP 122/78
[2018-04-11] MEDS: SENNA/DOCUSATE TABLET PO SCH (09:00)
[2018-04-11] MEDS: LISINOPRIL 5 MG TABLET PO SCH (09:00)
[2018-04-11] MEDS: GABAPENTIN 300 MG CAPSULE PO SCH ×3 (09:00→20:05)
[2018-04-11] MEDS: APIXABAN 5 MG TABLET PO SCH ×2 (09:00→20:05)
[2018-04-11 12:15] VITALS: BP 125/84
[2018-04-11] MEDS: CEFTRIAXONE 2 GM in SODIUM CHLORIDE 0.9% 50 ML IV SCH (14:34)
[2018-04-11 19:35] VITALS: BP 148/69
[2018-04-11] MEDS: LOVASTATIN 10 MG TABLET PO SCH (20:05)
[2018-04-12 02:05] VITALS: BP 131/87
[2018-04-12] MEDS: ASPIRIN 81 MG TABLET EC PO SCH (05:56)
[2018-04-12] MEDS: LEVOTHYROXINE 150 MCG TABLET PO SCH (05:56)
[2018-04-12 06:54] VITALS: BP 129/82
[2018-04-12 07:06] VITALS: BP 128/76
[2018-04-12] MEDS: APIXABAN 5 MG TABLET PO SCH ×2 (08:56→21:49)
[2018-04-12] MEDS: GABAPENTIN 300 MG CAPSULE PO SCH ×3 (08:59→21:00)
[2018-04-12] MEDS: LISINOPRIL 5 MG TABLET PO SCH (08:59)
[2018-04-12] MEDS: SENNA/DOCUSATE TABLET PO SCH (08:59)
[2018-04-12] MEDS ORDERED: FUROSEMIDE 40 MG/4 ML IV ONE (11:30)
[2018-04-12 14:24] VITALS: BP 133/85
[2018-04-12] MEDS: CEFTRIAXONE 2 GM in SODIUM CHLORIDE 0.9% 50 ML IV SCH ×2 (14:30→15:30)
[2018-04-12 20:00] VITALS: BP 137/75
[2018-04-12] MEDS: LOVASTATIN 10 MG TABLET PO SCH (21:00)
[2018-04-13 02:00] VITALS: BP 137/85
[2018-04-13] MEDS: ASPIRIN 81 MG TABLET EC PO SCH (04:52)
[2018-04-13] MEDS: LEVOTHYROXINE 150 MCG TABLET PO SCH (05:39)
[2018-04-13 07:28] VITALS: BP 139/90
[2018-04-13] MEDS: GABAPENTIN 300 MG CAPSULE PO SCH ×3 (09:00→21:00)
[2018-04-13] MEDS: APIXABAN 5 MG TABLET PO SCH ×2 (09:00→21:36)
[2018-04-13] MEDS: LISINOPRIL 5 MG TABLET PO SCH (09:00)
[2018-04-13] MEDS: SENNA/DOCUSATE TABLET PO SCH (09:00)
[2018-04-13 13:04] VITALS: BP 149/80
[2018-04-13] MEDS: CEFTRIAXONE 2 GM in SODIUM CHLORIDE 0.9% 50 ML IV SCH (14:32)
[2018-04-13 20:00] VITALS: BP 135/87
[2018-04-13] MEDS: LOVASTATIN 10 MG TABLET PO SCH (21:00)
[2018-04-14 02:00] VITALS: BP 135/87
[2018-04-14] MEDS: ASPIRIN 81 MG TABLET EC PO SCH (05:43)
[2018-04-14] MEDS: LEVOTHYROXINE 150 MCG TABLET PO SCH (05:43)
[2018-04-14 07:03] VITALS: BP 132/89
[2018-04-14] MEDS ORDERED: ACETAMINOPHEN 325 MG TABLET PO PRN (08:00)
[2018-04-14] MEDS: LISINOPRIL 5 MG TABLET PO SCH (09:00)
[2018-04-14] MEDS: GABAPENTIN 300 MG CAPSULE PO SCH ×3 (09:00→20:57)
[2018-04-14] MEDS: SENNA/DOCUSATE TABLET PO SCH (09:00)
[2018-04-14] MEDS: FERROUS SULFATE 325 MG TABLET PO SCH (09:48)
[2018-04-14] MEDS: LACTOBACILLUS CHEW TABLET PO SCH ×3 (09:48→20:56)
[2018-04-14] MEDS: APIXABAN 5 MG TABLET PO SCH ×2 (09:48→20:56)
[2018-04-14] MEDS: OMEPRAZOLE 20 MG CAPSULE.DR PO SCH (09:48)
[2018-04-14 13:43] VITALS: BP 138/94
[2018-04-14] MEDS: CEFTRIAXONE 2 GM in SODIUM CHLORIDE 0.9% 50 ML IV SCH (14:55)
[2018-04-14 16:06] LABS: INTERNATIONAL NORMALIZED RATIO 1.43 (0.93-1.1); PROTHROMBIN TIME 14.8 Seconds (9.6-11.5)
[2018-04-14 16:07] LABS: ALBUMIN 2.3 g/dL (3.4-5.0); ANION GAP 5 mmol/L (5-15); CALCIUM 8.1 mg/dL (8.5-10.1); CHLORIDE 111 mmol/L (98-107); CREATININE 0.95 mg/dL (0.7-1.3)
[2018-04-14] MEDS: CARVEDILOL 6.25 MG TABLET PO SCH (18:00)
[2018-04-14 20:00] VITALS: BP 133/84
[2018-04-14] MEDS: LOVASTATIN 10 MG TABLET PO SCH (20:57)
[2018-04-15 02:00] VITALS: BP 136/86
[2018-04-15 05:11] LABS: BASOPHILS # (AUTO) 0.08 x10^3/uL (0-0.1); BASOPHILS % (AUTO) 2 % (0-1); EOSINOPHILS # (AUTO) 0.38 x10^3/uL (0-0.4); EOSINOPHILS % (AUTO) 7 % (1-7); LYMPHOCYTES # (AUTO) 0.64 x10^3/uL (1-3.4); LYMPHOCYTES % (AUTO) 12 % (22-44); MD NO; MEAN CORPUSCULAR HEMOGLOBIN 30.6 pg (27.5-34.5); MEAN CORPUSCULAR HGB CONC 33.1 g/dL (33.2-36.2); MEAN CORPUSCULAR VOLUME 92.4 fL (81-97); MEAN PLATELET VOLUME 7.5 fL (7.4-10.4); MONOCYTES # (AUTO) 0.58 x10^3/uL (0.2-0.8); MONOCYTES % (AUTO) 11 % (2-9); NEUTROPHILS # (AUTO) 3.46 x10^3/uL (1.8-6.8); NEUTROPHILS % (AUTO) 67 % (42-75); PLATELET COUNT 290 x10^3/uL (130-400); RED BLOOD COUNT 2.72 x10^6/uL (4.38-5.82)
[2018-04-15] MEDS: LEVOTHYROXINE 150 MCG TABLET PO SCH (05:57)
[2018-04-15] MEDS: CARVEDILOL 6.25 MG TABLET PO SCH (05:57)
[2018-04-15] MEDS: ASPIRIN 81 MG TABLET EC PO SCH (05:57)
[2018-04-15] MEDS: OMEPRAZOLE 20 MG CAPSULE.DR PO SCH (07:30)
[2018-04-15 08:08] VITALS: BP 129/84
[2018-04-15] MEDS: LACTOBACILLUS CHEW TABLET PO SCH ×3 (08:19→21:06)
[2018-04-15] MEDS: SENNA/DOCUSATE TABLET PO SCH (08:20)
[2018-04-15] MEDS: APIXABAN 5 MG TABLET PO SCH ×2 (08:20→20:48)
[2018-04-15] MEDS: TAMSULOSIN 0.4 MG CAP.ER.24H PO SCH (12:12)
[2018-04-15] MEDS ORDERED: APIXABAN 5 MG TABLET PO ONE (13:00)
[2018-04-15 15:31] VITALS: BP 143/84
--- NOTE | 2018-04-15 17:04 | NUR ---
GREEN NURSING ACTIVITY SHEET REVIEWED WITH RN AND POSTED IN ROOM. ACTIVITIES INCLUDE THE FOLLOWIN. POSITION PATIENTS HEAD UP IN BED FOR ALL MEALS AND EXERCISES 2. EXERCISES PER HANDOUT 3 X'S A DAY OR TOLERATED. Addendum: 04/15/18 at 1705 by BENJIE EASON PTA Amended: Links added.
[2018-04-15 19:28] VITALS: BP 134/82
[2018-04-15] MEDS: LOVASTATIN 10 MG TABLET PO SCH (21:06)
[2018-04-16 01:40] VITALS: BP 129/84
[2018-04-16] MEDS: LEVOTHYROXINE 150 MCG TABLET PO SCH (05:45)
[2018-04-16] MEDS: ASPIRIN 81 MG TABLET EC PO SCH (05:46)
[2018-04-16] MEDS: OMEPRAZOLE 20 MG CAPSULE.DR PO SCH (07:30)
[2018-04-16 07:48] VITALS: BP 127/84
[2018-04-16] MEDS: FERROUS SULFATE 325 MG TABLET PO SCH (08:00)
[2018-04-16] MEDS: TAMSULOSIN 0.4 MG CAP.ER.24H PO SCH (08:17)
[2018-04-16] MEDS: APIXABAN 5 MG TABLET PO SCH ×2 (08:18→21:45)
[2018-04-16] MEDS: LACTOBACILLUS CHEW TABLET PO SCH (08:23)
[2018-04-16] MEDS: SENNA/DOCUSATE TABLET PO SCH (08:23)
[2018-04-16 13:58] VITALS: BP 124/77
[2018-04-16 18:50] VITALS: BP 130/82
[2018-04-16] MEDS: LOVASTATIN 10 MG TABLET PO SCH (21:00)
[2018-04-17 02:08] VITALS: BP 129/81
[2018-04-17] MEDS: ASPIRIN 81 MG TABLET EC PO SCH (06:00)
[2018-04-17] MEDS: LEVOTHYROXINE 150 MCG TABLET PO SCH (06:43)
[2018-04-17 07:25] VITALS: BP 133/83
[2018-04-17] MEDS: OMEPRAZOLE 20 MG CAPSULE.DR PO SCH (07:30)
[2018-04-17] MEDS: SENNA/DOCUSATE TABLET PO SCH (09:00)
[2018-04-17] MEDS: APIXABAN 5 MG TABLET PO SCH ×2 (09:00→20:39)
[2018-04-17] MEDS: TAMSULOSIN 0.4 MG CAP.ER.24H PO SCH (09:00)
[2018-04-17 13:15] VITALS: BP 136/87
[2018-04-17 19:02] VITALS: BP 146/92
[2018-04-17] MEDS: LOVASTATIN 10 MG TABLET PO SCH (20:39)
[2018-04-18 01:25] VITALS: BP 144/87
[2018-04-18] MEDS: METOPROLOL SUCCINATE 25 MG TAB.ER.24H PO SCH (06:05)
[2018-04-18] MEDS: LEVOTHYROXINE 150 MCG TABLET PO SCH (06:06)
[2018-04-18] MEDS: ASPIRIN 81 MG TABLET EC PO SCH (06:06)
[2018-04-18] MEDS: OMEPRAZOLE 20 MG CAPSULE.DR PO SCH (07:30)
[2018-04-18 08:00] VITALS: BP 137/85
[2018-04-18] MEDS: FERROUS SULFATE 325 MG TABLET PO SCH (08:00)
[2018-04-18] MEDS: SENNA/DOCUSATE TABLET PO SCH (08:34)
[2018-04-18] MEDS: TAMSULOSIN 0.4 MG CAP.ER.24H PO SCH (08:34)
[2018-04-18] MEDS: APIXABAN 5 MG TABLET PO SCH ×3 (08:34→21:16)
[2018-04-18 13:26] VITALS: BP 128/80
[2018-04-18 20:00] VITALS: BP 131/80
[2018-04-18] MEDS: LOVASTATIN 10 MG TABLET PO SCH (20:26)
[2018-04-19 02:00] VITALS: BP 132/82
[2018-04-19] MEDS: LEVOTHYROXINE 150 MCG TABLET PO SCH (05:11)
[2018-04-19] MEDS: ASPIRIN 81 MG TABLET EC PO SCH (05:11)
[2018-04-19] MEDS: METOPROLOL SUCCINATE 25 MG TAB.ER.24H PO SCH (05:12)
[2018-04-19] MEDS: OMEPRAZOLE 20 MG CAPSULE.DR PO SCH (07:30)
[2018-04-19] MEDS: TAMSULOSIN 0.4 MG CAP.ER.24H PO SCH (07:36)
[2018-04-19] MEDS: SENNA/DOCUSATE TABLET PO SCH (07:36)
[2018-04-19 07:52] VITALS: BP 135/90
[2018-04-19] MEDS: APIXABAN 5 MG TABLET PO SCH ×2 (09:17→20:16)
[2018-04-19 14:05] VITALS: BP 138/87
[2018-04-19 20:00] VITALS: BP 133/84
[2018-04-19] MEDS: LOVASTATIN 10 MG TABLET PO SCH (20:17)
[2018-04-20 01:55] VITALS: BP 130/83
[2018-04-20] MEDS: LEVOTHYROXINE 150 MCG TABLET PO SCH (05:27)
[2018-04-20] MEDS: ASPIRIN 81 MG TABLET EC PO SCH (05:27)
[2018-04-20] MEDS: METOPROLOL SUCCINATE 25 MG TAB.ER.24H PO SCH (05:27)
[2018-04-20 07:40] VITALS: BP 145/88
[2018-04-20] MEDS: OMEPRAZOLE 20 MG CAPSULE.DR PO SCH (09:23)
[2018-04-20] MEDS: FERROUS SULFATE 325 MG TABLET PO SCH (09:24)
[2018-04-20] MEDS: TAMSULOSIN 0.4 MG CAP.ER.24H PO SCH (09:24)
[2018-04-20] MEDS: SENNA/DOCUSATE TABLET PO SCH (09:24)
[2018-04-20] MEDS: APIXABAN 5 MG TABLET PO SCH ×2 (09:25→20:45)
[2018-04-20 13:10] VITALS: BP 134/86
[2018-04-20 19:34] VITALS: BP 131/87
[2018-04-20] MEDS: LOVASTATIN 10 MG TABLET PO SCH (20:51)
[2018-04-21 04:04] VITALS: BP 128/73
[2018-04-21] MEDS: LEVOTHYROXINE 150 MCG TABLET PO SCH (04:17)
[2018-04-21] MEDS: METOPROLOL SUCCINATE 25 MG TAB.ER.24H PO SCH (04:18)
[2018-04-21] MEDS: ASPIRIN 81 MG TABLET EC PO SCH (04:18)
[2018-04-21] MEDS: OMEPRAZOLE 20 MG CAPSULE.DR PO SCH (07:32)
[2018-04-21 07:58] LABS: ALANINE AMINOTRANSFERASE 12 U/L (12-78); ALBUMIN 2.4 g/dL (3.4-5.0); ANION GAP 4 mmol/L (5-15); CHLORIDE 113 mmol/L (98-107); CREATININE 0.83 mg/dL (0.7-1.3)
[2018-04-21 08:00] LABS: ALKALINE PHOSPHATASE 120 U/L (45-117); BILIRUBIN,TOTAL 0.3 mg/dL (0.2-1.0); TOTAL PROTEIN 7.2 g/dL (6.4-8.2)
[2018-04-21] MEDS: APIXABAN 5 MG TABLET PO SCH ×2 (08:18→21:28)
[2018-04-21 08:20] VITALS: BP 151/91
[2018-04-21] MEDS: SENNA/DOCUSATE TABLET PO SCH (08:20)
[2018-04-21] MEDS: TAMSULOSIN 0.4 MG CAP.ER.24H PO SCH (08:20)
[2018-04-21 13:04] VITALS: BP 133/83
[2018-04-21 19:38] VITALS: BP 153/83
[2018-04-21] MEDS: LOVASTATIN 10 MG TABLET PO SCH (21:00)
[2018-04-21 23:33] VITALS: BP 147/90
[2018-04-22] MEDS: ASPIRIN 81 MG TABLET EC PO SCH (05:26)
[2018-04-22] MEDS: LEVOTHYROXINE 150 MCG TABLET PO SCH (05:26)
[2018-04-22] MEDS: METOPROLOL SUCCINATE 25 MG TAB.ER.24H PO SCH (05:27)
[2018-04-22] MEDS: OMEPRAZOLE 20 MG CAPSULE.DR PO SCH (07:30)
[2018-04-22 08:00] VITALS: BP 149/90
[2018-04-22] MEDS: FERROUS SULFATE 325 MG TABLET PO SCH (08:00)
[2018-04-22] MEDS: APIXABAN 5 MG TABLET PO SCH ×2 (08:56→20:48)
[2018-04-22] MEDS: TAMSULOSIN 0.4 MG CAP.ER.24H PO SCH (08:57)
[2018-04-22] MEDS: SENNA/DOCUSATE TABLET PO SCH (08:57)
[2018-04-22 14:10] VITALS: BP 148/92
[2018-04-22 19:19] VITALS: BP 137/89
[2018-04-22] MEDS: LOVASTATIN 10 MG TABLET PO SCH (20:49)
[2018-04-23 00:51] VITALS: BP 121/70
[2018-04-23] MEDS: ASPIRIN 81 MG TABLET EC PO SCH (06:00)
[2018-04-23] MEDS: METOPROLOL SUCCINATE 25 MG TAB.ER.24H PO SCH (06:00)
[2018-04-23] MEDS: LEVOTHYROXINE 150 MCG TABLET PO SCH (06:27)
[2018-04-23] MEDS: OMEPRAZOLE 20 MG CAPSULE.DR PO SCH (07:30)
[2018-04-23 08:00] VITALS: BP 111/69
[2018-04-23] MEDS: SENNA/DOCUSATE TABLET PO SCH (08:48)
[2018-04-23] MEDS: APIXABAN 5 MG TABLET PO SCH ×2 (08:48→21:07)
[2018-04-23] MEDS: TAMSULOSIN 0.4 MG CAP.ER.24H PO SCH (08:48)
[2018-04-23 14:00] VITALS: BP 136/86
[2018-04-23 19:25] VITALS: BP 148/90
[2018-04-23] MEDS: LOVASTATIN 10 MG TABLET PO SCH (21:00)
[2018-04-24 00:45] VITALS: BP 128/85
[2018-04-24] MEDS: METOPROLOL SUCCINATE 25 MG TAB.ER.24H PO SCH (06:00)
[2018-04-24] MEDS: ASPIRIN 81 MG TABLET EC PO SCH (06:00)
[2018-04-24] MEDS: LEVOTHYROXINE 150 MCG TABLET PO SCH (06:31)
[2018-04-24 07:18] VITALS: BP 134/86
[2018-04-24 07:29] LABS: BASOPHILS # (AUTO) 0.07 x10^3/uL (0-0.1); BASOPHILS % (AUTO) 1 % (0-1); EOSINOPHILS # (AUTO) 0.33 x10^3/uL (0-0.4); EOSINOPHILS % (AUTO) 6 % (1-7); LYMPHOCYTES # (AUTO) 0.58 x10^3/uL (1-3.4); LYMPHOCYTES % (AUTO) 11 % (22-44); MD NO; MEAN CORPUSCULAR HGB CONC 31.6 g/dL (33.2-36.2); MEAN CORPUSCULAR VOLUME 94.7 fL (81-97); MEAN PLATELET VOLUME 7.6 fL (7.4-10.4); MONOCYTES # (AUTO) 0.65 x10^3/uL (0.2-0.8); MONOCYTES % (AUTO) 12 % (2-9); NEUTROPHILS # (AUTO) 3.85 x10^3/uL (1.8-6.8); NEUTROPHILS % (AUTO) 70 % (42-75); PLATELET COUNT 222 x10^3/uL (130-400); RED BLOOD COUNT 2.83 x10^6/uL (4.38-5.82); RED CELL DISTRIBUTION WIDTH 20.6 % (9.4-14.8)
[2018-04-24] MEDS: OMEPRAZOLE 20 MG CAPSULE.DR PO SCH (07:30)
[2018-04-24 07:38] LABS: ALANINE AMINOTRANSFERASE 10 U/L (12-78); ALBUMIN 2.3 g/dL (3.4-5.0); ANION GAP 4 mmol/L (5-15); CALCIUM 7.9 mg/dL (8.5-10.1); CHLORIDE 114 mmol/L (98-107)
[2018-04-24] MEDS: FERROUS SULFATE 325 MG TABLET PO SCH (07:43)
[2018-04-24 07:48] LABS: ALKALINE PHOSPHATASE 111 U/L (45-117); BILIRUBIN,TOTAL 0.4 mg/dL (0.2-1.0)
[2018-04-24 08:06] LABS: FREE T4 (FREE THYROXINE) 0.96 ng/dL (0.76-1.46)
[2018-04-24] MEDS: TAMSULOSIN 0.4 MG CAP.ER.24H PO SCH (09:00)
[2018-04-24] MEDS: SENNA/DOCUSATE TABLET PO SCH (09:00)
[2018-04-24] MEDS: APIXABAN 5 MG TABLET PO SCH ×2 (09:38→19:56)
[2018-04-24] MEDS ORDERED: DEXTROSE 50%, 50ML SYRINGE IVPush PRN (11:00)
[2018-04-24] MEDS ORDERED: DEXTROSE 4 GM TAB.CHEW PO PRN (11:00)
[2018-04-24] MEDS ORDERED: GLUCAGON 1 MG IM PRN (11:00)
[2018-04-24] MEDS: SODIUM CHLORIDE FLUSH 10ML SYR IVF SCH ×2 (12:00→19:56)
[2018-04-24 14:57] VITALS: BP 132/84
[2018-04-24] MEDS: SODIUM CHLORIDE 0.45% 1,000 ML IV SCH ×2 (15:50→15:53)
[2018-04-24 19:21] VITALS: BP 158/101
[2018-04-24] MEDS: LOVASTATIN 10 MG TABLET PO SCH (19:56)
[2018-04-25 00:38] VITALS: BP 124/79
[2018-04-25] MEDS: SODIUM CHLORIDE 0.45% 1,000 ML IV SCH (01:20)
[2018-04-25 05:20] LABS: ALBUMIN 2.3 g/dL (3.4-5.0); ANION GAP 5 mmol/L (5-15); CALCIUM 8.1 mg/dL (8.5-10.1); CHLORIDE 112 mmol/L (98-107)
[2018-04-25 05:24] LABS: ALANINE AMINOTRANSFERASE 11 U/L (12-78); ALKALINE PHOSPHATASE 126 U/L (45-117); BILIRUBIN,TOTAL 0.3 mg/dL (0.2-1.0); CREATININE 0.83 mg/dL (0.7-1.3)
[2018-04-25] MEDS: ASPIRIN 81 MG TABLET EC PO SCH (06:00)
[2018-04-25] MEDS: METOPROLOL SUCCINATE 25 MG TAB.ER.24H PO SCH (06:00)
[2018-04-25] MEDS: LEVOTHYROXINE 150 MCG TABLET PO SCH (06:15)
[2018-04-25 06:40] VITALS: BP 115/72
[2018-04-25] MEDS: OMEPRAZOLE 20 MG CAPSULE.DR PO SCH (07:30)
[2018-04-25] MEDS: TAMSULOSIN 0.4 MG CAP.ER.24H PO SCH (09:00)
[2018-04-25] MEDS: SENNA/DOCUSATE TABLET PO SCH (09:00)
[2018-04-25] MEDS: SODIUM CHLORIDE FLUSH 10ML SYR IVF SCH ×2 (09:00→21:00)
[2018-04-25] MEDS: APIXABAN 5 MG TABLET PO SCH ×2 (09:02→20:43)
[2018-04-25 13:26] VITALS: BP 127/58
[2018-04-25 20:16] VITALS: BP 144/94
[2018-04-25] MEDS: LOVASTATIN 10 MG TABLET PO SCH (20:43)
[2018-04-26 02:02] VITALS: BP 142/92
[2018-04-26] MEDS: METOPROLOL SUCCINATE 25 MG TAB.ER.24H PO SCH (05:25)
[2018-04-26] MEDS: ASPIRIN 81 MG TABLET EC PO SCH (05:25)
[2018-04-26] MEDS: LEVOTHYROXINE 150 MCG TABLET PO SCH (05:25)
[2018-04-26 06:48] VITALS: BP 111/69
[2018-04-26] MEDS: OMEPRAZOLE 20 MG CAPSULE.DR PO SCH (07:46)
[2018-04-26] MEDS: SODIUM CHLORIDE FLUSH 10ML SYR IVF SCH ×3 (09:00→20:53)
[2018-04-26] MEDS: SENNA/DOCUSATE TABLET PO SCH (09:00)
[2018-04-26] MEDS: TAMSULOSIN 0.4 MG CAP.ER.24H PO SCH (09:00)
[2018-04-26] MEDS: FERROUS SULFATE 325 MG TABLET PO SCH (11:05)
[2018-04-26] MEDS: APIXABAN 5 MG TABLET PO SCH ×2 (11:06→20:43)
[2018-04-26 13:20] VITALS: BP 127/80
[2018-04-26 19:34] VITALS: BP 133/89
[2018-04-26] MEDS: LOVASTATIN 10 MG TABLET PO SCH ×2 (20:43→20:46)
[2018-04-27 02:11] VITALS: BP 131/82
--- NOTE | 2018-04-27 03:00 | NUR ---
OT put on the whitePulselocker GREEN ACTIVITY SHEET so pt will be OOB to reclining chair via jayson lift. Also B UE & L GREYSON AA/AROM for available range & as tolerated. Addendum: 04/27/18 at 1753 by KALEB HUERTA OT Amended: Links added.
[2018-04-27] MEDS: ASPIRIN 81 MG TABLET EC PO SCH (06:00)
[2018-04-27] MEDS: METOPROLOL SUCCINATE 25 MG TAB.ER.24H PO SCH (06:00)
[2018-04-27] MEDS: LEVOTHYROXINE 150 MCG TABLET PO SCH (06:37)
[2018-04-27 06:49] VITALS: BP 126/82
[2018-04-27] MEDS: OMEPRAZOLE 20 MG CAPSULE.DR PO SCH (07:30)
[2018-04-27] MEDS: APIXABAN 5 MG TABLET PO SCH ×2 (08:48→21:01)
[2018-04-27] MEDS: TAMSULOSIN 0.4 MG CAP.ER.24H PO SCH (08:49)
[2018-04-27] MEDS: SENNA/DOCUSATE TABLET PO SCH (08:49)
[2018-04-27 12:51] VITALS: BP 146/83
[2018-04-27 19:50] VITALS: BP 126/85
[2018-04-27] MEDS: LOVASTATIN 10 MG TABLET PO SCH (21:01)
[2018-04-28 00:15] VITALS: BP 124/81
[2018-04-28] MEDS: ASPIRIN 81 MG TABLET EC PO SCH (05:01)
[2018-04-28] MEDS: METOPROLOL SUCCINATE 25 MG TAB.ER.24H PO SCH (05:01)
[2018-04-28] MEDS: LEVOTHYROXINE 150 MCG TABLET PO SCH (05:19)
[2018-04-28 06:55] VITALS: BP 118/76
[2018-04-28] MEDS: OMEPRAZOLE 20 MG CAPSULE.DR PO SCH (07:30)
[2018-04-28] MEDS: FERROUS SULFATE 325 MG TABLET PO SCH (08:00)
[2018-04-28] MEDS: APIXABAN 5 MG TABLET PO SCH ×2 (08:15→19:46)
[2018-04-28] MEDS: TAMSULOSIN 0.4 MG CAP.ER.24H PO SCH (08:16)
[2018-04-28] MEDS: SENNA/DOCUSATE TABLET PO SCH (08:16)
[2018-04-28 15:23] VITALS: BP 121/77
[2018-04-28 18:55] VITALS: BP 127/89
[2018-04-28] MEDS: LOVASTATIN 10 MG TABLET PO SCH (19:46)
[2018-04-29 01:21] VITALS: BP 124/80
[2018-04-29 05:41] LABS: BASOPHILS # (AUTO) 0.04 x10^3/uL (0-0.1); BASOPHILS % (AUTO) 1 % (0-1); EOSINOPHILS # (AUTO) 0.34 x10^3/uL (0-0.4); EOSINOPHILS % (AUTO) 6 % (1-7); LYMPHOCYTES # (AUTO) 0.48 x10^3/uL (1-3.4); LYMPHOCYTES % (AUTO) 8 % (22-44); MD NO; MEAN CORPUSCULAR HEMOGLOBIN 30.7 pg (27.5-34.5); MEAN CORPUSCULAR HGB CONC 32.6 g/dL (33.2-36.2); MEAN CORPUSCULAR VOLUME 94.2 fL (81-97); MEAN PLATELET VOLUME 8.1 fL (7.4-10.4); MONOCYTES # (AUTO) 0.66 x10^3/uL (0.2-0.8); MONOCYTES % (AUTO) 11 % (2-9); NEUTROPHILS # (AUTO) 4.39 x10^3/uL (1.8-6.8); NEUTROPHILS % (AUTO) 74 % (42-75); PLATELET COUNT 191 x10^3/uL (130-400); RED BLOOD COUNT 2.73 x10^6/uL (4.38-5.82); RED CELL DISTRIBUTION WIDTH 19.2 % (9.4-14.8)
[2018-04-29] MEDS: ASPIRIN 81 MG TABLET EC PO SCH (05:42)
[2018-04-29 05:45] LABS: ALBUMIN 2.2 g/dL (3.4-5.0); ANION GAP 4 mmol/L (5-15); CALCIUM 7.9 mg/dL (8.5-10.1); CHLORIDE 109 mmol/L (98-107)
[2018-04-29] MEDS: METOPROLOL SUCCINATE 25 MG TAB.ER.24H PO SCH (05:45)
[2018-04-29] MEDS: LEVOTHYROXINE 150 MCG TABLET PO SCH (05:46)
[2018-04-29 05:48] LABS: CREATININE 0.91 mg/dL (0.7-1.3)
[2018-04-29 07:20] VITALS: BP 123/75
[2018-04-29] MEDS: SODIUM CHLORIDE 0.45% 1,000 ML IV SCH ×2 (07:30→17:30)
[2018-04-29] MEDS: OMEPRAZOLE 20 MG CAPSULE.DR PO SCH (07:30)
[2018-04-29] MEDS: SENNA/DOCUSATE TABLET PO SCH (08:27)
[2018-04-29] MEDS: TAMSULOSIN 0.4 MG CAP.ER.24H PO SCH (08:27)
[2018-04-29] MEDS: APIXABAN 5 MG TABLET PO SCH ×2 (09:33→20:37)
[2018-04-29 13:40] VITALS: BP 135/83
[2018-04-29 19:08] VITALS: BP 132/83
[2018-04-29] MEDS: LOVASTATIN 10 MG TABLET PO SCH (20:37)
[2018-04-30 00:17] VITALS: BP 129/80
[2018-04-30] MEDS: SODIUM CHLORIDE 0.45% 1,000 ML IV SCH (03:30)
[2018-04-30 05:03] LABS: ANION GAP 1 mmol/L (5-15); CHLORIDE 111 mmol/L (98-107); CREATININE 0.88 mg/dL (0.7-1.3)
[2018-04-30] MEDS: ASPIRIN 81 MG TABLET EC PO SCH (06:00)
[2018-04-30] MEDS: METOPROLOL SUCCINATE 25 MG TAB.ER.24H PO SCH (06:00)
[2018-04-30] MEDS: LEVOTHYROXINE 150 MCG TABLET PO SCH (06:17)
[2018-04-30] MEDS: OMEPRAZOLE 20 MG CAPSULE.DR PO SCH (07:30)
[2018-04-30 07:43] VITALS: BP 138/85
[2018-04-30] MEDS: FERROUS SULFATE 325 MG TABLET PO SCH (08:25)
[2018-04-30] MEDS: APIXABAN 5 MG TABLET PO SCH ×2 (08:25→19:53)
[2018-04-30] MEDS: SENNA/DOCUSATE TABLET PO SCH (08:25)
[2018-04-30] MEDS: TAMSULOSIN 0.4 MG CAP.ER.24H PO SCH (08:26)
[2018-04-30 14:00] VITALS: BP 127/85
[2018-04-30 19:13] VITALS: BP 135/84
[2018-04-30] MEDS: LOVASTATIN 10 MG TABLET PO SCH (19:53)
[2018-05-01 01:15] VITALS: BP 125/85
[2018-05-01] MEDS: ASPIRIN 81 MG TABLET EC PO SCH (05:39)
[2018-05-01] MEDS: METOPROLOL SUCCINATE 25 MG TAB.ER.24H PO SCH (05:40)
[2018-05-01] MEDS: LEVOTHYROXINE 150 MCG TABLET PO SCH (06:18)
[2018-05-01] MEDS: OMEPRAZOLE 20 MG CAPSULE.DR PO SCH (07:30)
[2018-05-01 08:07] VITALS: BP 125/82
[2018-05-01] MEDS ORDERED: COLCHICINE 0.6 MG TABLET PO ONE ×2 (08:30→09:30)
[2018-05-01] MEDS: SENNA/DOCUSATE TABLET PO SCH (09:00)
[2018-05-01] MEDS: TAMSULOSIN 0.4 MG CAP.ER.24H PO SCH (09:00)
[2018-05-01] MEDS: APIXABAN 5 MG TABLET PO SCH ×2 (10:48→21:48)
[2018-05-01 14:30] VITALS: BP 127/87
[2018-05-01 19:37] VITALS: BP 129/76
[2018-05-01] MEDS: LOVASTATIN 10 MG TABLET PO SCH (21:00)
[2018-05-02 02:01] VITALS: BP 122/81
[2018-05-02] MEDS: ASPIRIN 81 MG TABLET EC PO SCH (06:00)
[2018-05-02] MEDS: METOPROLOL SUCCINATE 25 MG TAB.ER.24H PO SCH (06:00)
[2018-05-02] MEDS: LEVOTHYROXINE 150 MCG TABLET PO SCH (06:22)
[2018-05-02 06:54] LABS: ANION GAP 4 mmol/L (5-15); CALCIUM 7.9 mg/dL (8.5-10.1); CHLORIDE 109 mmol/L (98-107); CREATININE 0.89 mg/dL (0.7-1.3)
[2018-05-02 07:10] VITALS: BP 128/85
[2018-05-02] MEDS: OMEPRAZOLE 20 MG CAPSULE.DR PO SCH (07:30)
[2018-05-02] MEDS: FERROUS SULFATE 325 MG TABLET PO SCH (08:00)
[2018-05-02] MEDS: TAMSULOSIN 0.4 MG CAP.ER.24H PO SCH (08:56)
[2018-05-02] MEDS: SENNA/DOCUSATE TABLET PO SCH (08:57)
[2018-05-02] MEDS: APIXABAN 5 MG TABLET PO SCH ×2 (09:23→21:01)
[2018-05-02] MEDS ORDERED: FUROSEMIDE 40 MG/4 ML IV SCH (10:00)
[2018-05-02 14:00] VITALS: BP 142/86
[2018-05-02 19:19] VITALS: BP 144/87
[2018-05-02] MEDS: LOVASTATIN 10 MG TABLET PO SCH (21:00)
[2018-05-03 01:27] VITALS: BP 124/79
[2018-05-03] MEDS: ASPIRIN 81 MG TABLET EC PO SCH (05:56)
[2018-05-03] MEDS: LEVOTHYROXINE 150 MCG TABLET PO SCH (05:56)
[2018-05-03] MEDS: METOPROLOL SUCCINATE 25 MG TAB.ER.24H PO SCH (05:56)
[2018-05-03 07:11] VITALS: BP 123/82
[2018-05-03] MEDS: OMEPRAZOLE 20 MG CAPSULE.DR PO SCH (07:30)
[2018-05-03] MEDS ORDERED: FUROSEMIDE 80 MG TABLET PO SCH (08:00)
[2018-05-03] MEDS: SENNA/DOCUSATE TABLET PO SCH (09:00)
[2018-05-03] MEDS: TAMSULOSIN 0.4 MG CAP.ER.24H PO SCH (09:00)
[2018-05-03 10:00] LABS: ANION GAP 5 mmol/L (5-15); CALCIUM 8.3 mg/dL (8.5-10.1); CHLORIDE 107 mmol/L (98-107); CREATININE 0.77 mg/dL (0.7-1.3)
[2018-05-03] MEDS: APIXABAN 5 MG TABLET PO SCH ×2 (10:20→20:49)
[2018-05-03 12:58] VITALS: BP 133/88
[2018-05-03 19:27] VITALS: BP 127/83
[2018-05-03] MEDS: LOVASTATIN 10 MG TABLET PO SCH (20:14)
[2018-05-04 01:31] VITALS: BP 119/77
[2018-05-04] MEDS: ASPIRIN 81 MG TABLET EC PO SCH (06:00)
[2018-05-04] MEDS: METOPROLOL SUCCINATE 25 MG TAB.ER.24H PO SCH (06:00)
[2018-05-04] MEDS: LEVOTHYROXINE 150 MCG TABLET PO SCH (06:16)
[2018-05-04 07:15] VITALS: BP 118/89
[2018-05-04] MEDS: OMEPRAZOLE 20 MG CAPSULE.DR PO SCH (07:30)
[2018-05-04] MEDS: FERROUS SULFATE 325 MG TABLET PO SCH (08:00)
[2018-05-04] MEDS: APIXABAN 5 MG TABLET PO SCH ×2 (08:24→21:14)
[2018-05-04] MEDS: FUROSEMIDE 40 MG TABLET PO SCH ×2 (08:25→21:13)
[2018-05-04] MEDS: TAMSULOSIN 0.4 MG CAP.ER.24H PO SCH (08:25)
[2018-05-04] MEDS: SENNA/DOCUSATE TABLET PO SCH (08:25)
[2018-05-04 14:46] VITALS: BP 128/88
[2018-05-04 18:53] VITALS: BP 146/86
[2018-05-04] MEDS: LOVASTATIN 10 MG TABLET PO SCH (21:14)
[2018-05-05 02:50] VITALS: BP 102/66
[2018-05-05] MEDS: METOPROLOL SUCCINATE 25 MG TAB.ER.24H PO SCH (05:09)
[2018-05-05] MEDS: ASPIRIN 81 MG TABLET EC PO SCH (05:09)
[2018-05-05] MEDS: LEVOTHYROXINE 150 MCG TABLET PO SCH (05:09)
[2018-05-05 07:17] VITALS: BP 117/79
[2018-05-05] MEDS: OMEPRAZOLE 20 MG CAPSULE.DR PO SCH (07:30)
[2018-05-05] MEDS: SENNA/DOCUSATE TABLET PO SCH (08:32)
[2018-05-05] MEDS: FUROSEMIDE 40 MG TABLET PO SCH ×2 (08:32→20:12)
[2018-05-05] MEDS: TAMSULOSIN 0.4 MG CAP.ER.24H PO SCH (08:32)
[2018-05-05] MEDS: APIXABAN 5 MG TABLET PO SCH ×2 (08:33→20:12)
[2018-05-05 13:00] VITALS: BP 129/85
[2018-05-05 18:45] VITALS: BP 143/91
[2018-05-05] MEDS: LOVASTATIN 10 MG TABLET PO SCH (20:12)
[2018-05-06 01:54] VITALS: BP 116/76
[2018-05-06] MEDS: METOPROLOL SUCCINATE 25 MG TAB.ER.24H PO SCH (05:01)
[2018-05-06] MEDS: ASPIRIN 81 MG TABLET EC PO SCH (05:01)
[2018-05-06] MEDS: LEVOTHYROXINE 150 MCG TABLET PO SCH (05:39)
[2018-05-06 07:26] VITALS: BP 135/83
[2018-05-06] MEDS: OMEPRAZOLE 20 MG CAPSULE.DR PO SCH (07:30)
[2018-05-06] MEDS: FERROUS SULFATE 325 MG TABLET PO SCH (08:00)
[2018-05-06] MEDS: SENNA/DOCUSATE TABLET PO SCH (09:00)
[2018-05-06] MEDS: TAMSULOSIN 0.4 MG CAP.ER.24H PO SCH (09:00)
[2018-05-06 09:10] LABS: ALBUMIN 2.2 g/dL (3.4-5.0); ANION GAP 3 mmol/L (5-15); CALCIUM 7.9 mg/dL (8.5-10.1); CHLORIDE 110 mmol/L (98-107); CREATININE 0.77 mg/dL (0.7-1.3)
[2018-05-06] MEDS: APIXABAN 5 MG TABLET PO SCH ×2 (09:11→20:04)
[2018-05-06] MEDS: FUROSEMIDE 40 MG TABLET PO SCH ×2 (09:13→20:04)
[2018-05-06 14:58] VITALS: BP 137/81
[2018-05-06 18:37] VITALS: BP 138/82
[2018-05-06] MEDS: LOVASTATIN 10 MG TABLET PO SCH (20:04)
[2018-05-07 01:10] VITALS: BP 126/81
[2018-05-07] MEDS: LEVOTHYROXINE 150 MCG TABLET PO SCH (05:11)
[2018-05-07] MEDS: ASPIRIN 81 MG TABLET EC PO SCH (05:44)
[2018-05-07] MEDS: METOPROLOL SUCCINATE 25 MG TAB.ER.24H PO SCH (05:44)
[2018-05-07 07:01] VITALS: BP 126/79
[2018-05-07 08:57] LABS: ALBUMIN 2.2 g/dL (3.4-5.0); ANION GAP 5 mmol/L (5-15); CALCIUM 8.3 mg/dL (8.5-10.1); CHLORIDE 110 mmol/L (98-107); CREATININE 0.79 mg/dL (0.7-1.3)
[2018-05-07] MEDS: SENNA/DOCUSATE TABLET PO SCH (09:00)
[2018-05-07] MEDS: FUROSEMIDE 40 MG TABLET PO SCH ×2 (10:44→20:34)
[2018-05-07] MEDS: APIXABAN 5 MG TABLET PO SCH ×2 (10:45→20:28)
[2018-05-07] MEDS: TAMSULOSIN 0.4 MG CAP.ER.24H PO SCH (10:45)
[2018-05-07] MEDS: OMEPRAZOLE 20 MG CAPSULE.DR PO SCH (10:48)
[2018-05-07 14:00] VITALS: BP 132/85
[2018-05-07 18:44] VITALS: BP 133/81
[2018-05-07] MEDS: LOVASTATIN 10 MG TABLET PO SCH (21:00)
[2018-05-08 00:39] VITALS: BP 121/71
[2018-05-08] MEDS: ASPIRIN 81 MG TABLET EC PO SCH (05:36)
[2018-05-08] MEDS: METOPROLOL SUCCINATE 25 MG TAB.ER.24H PO SCH (05:36)
[2018-05-08] MEDS: LEVOTHYROXINE 150 MCG TABLET PO SCH (05:42)
[2018-05-08] MEDS: OMEPRAZOLE 20 MG CAPSULE.DR PO SCH (07:30)
[2018-05-08 07:59] VITALS: BP 126/82
[2018-05-08] MEDS: FERROUS SULFATE 325 MG TABLET PO SCH (08:00)
[2018-05-08] MEDS: SENNA/DOCUSATE TABLET PO SCH (09:00)
[2018-05-08] MEDS: FUROSEMIDE 40 MG TABLET PO SCH ×2 (09:05→19:42)
[2018-05-08] MEDS: APIXABAN 5 MG TABLET PO SCH ×2 (09:05→19:42)
[2018-05-08] MEDS: TAMSULOSIN 0.4 MG CAP.ER.24H PO SCH (09:06)
[2018-05-08] MEDS ORDERED: SODIUM POLYSTYRENE SULFONATE ORAL SUSP PO ONE (11:00)
[2018-05-08 13:23] VITALS: BP 138/81
[2018-05-08 19:42] VITALS: BP 149/94
[2018-05-08] MEDS: LOVASTATIN 10 MG TABLET PO SCH (21:00)
[2018-05-09 00:20] VITALS: BP 137/85
[2018-05-09] MEDS: ASPIRIN 81 MG TABLET EC PO SCH (05:48)
[2018-05-09] MEDS: METOPROLOL SUCCINATE 25 MG TAB.ER.24H PO SCH (05:48)
[2018-05-09] MEDS: LEVOTHYROXINE 150 MCG TABLET PO SCH (06:01)
[2018-05-09] MEDS: OMEPRAZOLE 20 MG CAPSULE.DR PO SCH (07:30)
[2018-05-09 07:33] VITALS: BP 134/88
[2018-05-09] MEDS: FUROSEMIDE 40 MG TABLET PO SCH ×2 (09:00→21:38)
[2018-05-09] MEDS: APIXABAN 5 MG TABLET PO SCH ×2 (09:00→21:35)
[2018-05-09] MEDS: TAMSULOSIN 0.4 MG CAP.ER.24H PO SCH (09:00)
[2018-05-09] MEDS: SENNA/DOCUSATE TABLET PO SCH (09:00)
[2018-05-09 14:00] VITALS: BP 154/72
[2018-05-09 18:56] VITALS: BP 144/89
[2018-05-09] MEDS: LOVASTATIN 10 MG TABLET PO SCH (21:00)
[2018-05-10 02:45] VITALS: BP 131/81
[2018-05-10] MEDS: ASPIRIN 81 MG TABLET EC PO SCH (06:00)
[2018-05-10] MEDS: METOPROLOL SUCCINATE 25 MG TAB.ER.24H PO SCH (06:00)
[2018-05-10] MEDS: LEVOTHYROXINE 150 MCG TABLET PO SCH (06:17)
[2018-05-10 06:48] VITALS: BP 127/81
[2018-05-10] MEDS: OMEPRAZOLE 20 MG CAPSULE.DR PO SCH (07:30)
[2018-05-10] MEDS: FERROUS SULFATE 325 MG TABLET PO SCH (08:00)
[2018-05-10] MEDS: TAMSULOSIN 0.4 MG CAP.ER.24H PO SCH (08:42)
[2018-05-10] MEDS: APIXABAN 5 MG TABLET PO SCH ×2 (08:43→20:50)
[2018-05-10] MEDS: FUROSEMIDE 40 MG TABLET PO SCH ×2 (08:43→20:50)
[2018-05-10] MEDS: SENNA/DOCUSATE TABLET PO SCH (08:43)
[2018-05-10 09:54] LABS: BASOPHILS # (AUTO) 0.06 x10^3/uL (0-0.1); BASOPHILS % (AUTO) 1 % (0-1); EOSINOPHILS # (AUTO) 0.37 x10^3/uL (0-0.4); EOSINOPHILS % (AUTO) 9 % (1-7); LYMPHOCYTES # (AUTO) 0.41 x10^3/uL (1-3.4); LYMPHOCYTES % (AUTO) 10 % (22-44); MD NO; MEAN CORPUSCULAR HEMOGLOBIN 30.4 pg (27.5-34.5); MEAN CORPUSCULAR HGB CONC 32.4 g/dL (33.2-36.2); MEAN CORPUSCULAR VOLUME 93.8 fL (81-97); MEAN PLATELET VOLUME 7.5 fL (7.4-10.4); MONOCYTES # (AUTO) 0.33 x10^3/uL (0.2-0.8); MONOCYTES % (AUTO) 8 % (2-9); NEUTROPHILS # (AUTO) 3.01 x10^3/uL (1.8-6.8); NEUTROPHILS % (AUTO) 72 % (42-75); PLATELET COUNT 255 x10^3/uL (130-400); RED BLOOD COUNT 2.82 x10^6/uL (4.38-5.82); RED CELL DISTRIBUTION WIDTH 19.6 % (9.4-14.8)
[2018-05-10 10:59] LABS: ALANINE AMINOTRANSFERASE 13 U/L (12-78); ALBUMIN 2.2 g/dL (3.4-5.0); ANION GAP 1 mmol/L (5-15); CHLORIDE 110 mmol/L (98-107); CREATININE 0.76 mg/dL (0.7-1.3)
[2018-05-10 11:01] LABS: ALKALINE PHOSPHATASE 123 U/L (45-117); BILIRUBIN,TOTAL 0.2 mg/dL (0.2-1.0)
[2018-05-10 12:32] VITALS: BP 125/80
[2018-05-10 19:52] VITALS: BP 149/97
[2018-05-10] MEDS: LOVASTATIN 10 MG TABLET PO SCH (21:00)
[2018-05-11 02:39] VITALS: BP 154/83
[2018-05-11] MEDS: METOPROLOL SUCCINATE 25 MG TAB.ER.24H PO SCH (06:00)
[2018-05-11] MEDS: ASPIRIN 81 MG TABLET EC PO SCH (06:00)
[2018-05-11] MEDS: LEVOTHYROXINE 150 MCG TABLET PO SCH (06:04)
[2018-05-11 07:00] VITALS: BP 121/78
[2018-05-11] MEDS: OMEPRAZOLE 20 MG CAPSULE.DR PO SCH (07:30)
[2018-05-11] MEDS: TAMSULOSIN 0.4 MG CAP.ER.24H PO SCH (07:30)
[2018-05-11] MEDS: SENNA/DOCUSATE TABLET PO SCH (07:30)
[2018-05-11] MEDS: APIXABAN 5 MG TABLET PO SCH ×2 (08:02→19:44)
[2018-05-11] MEDS: FUROSEMIDE 40 MG TABLET PO SCH ×2 (08:02→19:44)
[2018-05-11 14:00] VITALS: BP 125/76
[2018-05-11 19:26] VITALS: BP 132/88
[2018-05-11] MEDS: LOVASTATIN 10 MG TABLET PO SCH (19:44)
[2018-05-12 01:12] VITALS: BP 128/82
[2018-05-12] MEDS: ASPIRIN 81 MG TABLET EC PO SCH (06:00)
[2018-05-12] MEDS: METOPROLOL SUCCINATE 25 MG TAB.ER.24H PO SCH (06:00)
[2018-05-12] MEDS: LEVOTHYROXINE 150 MCG TABLET PO SCH (06:12)
[2018-05-12 07:03] VITALS: BP 129/84
[2018-05-12] MEDS: APIXABAN 5 MG TABLET PO SCH ×2 (08:35→20:47)
[2018-05-12] MEDS: OMEPRAZOLE 20 MG CAPSULE.DR PO SCH (08:36)
[2018-05-12] MEDS: FERROUS SULFATE 325 MG TABLET PO SCH (08:36)
[2018-05-12] MEDS: TAMSULOSIN 0.4 MG CAP.ER.24H PO SCH (08:36)
[2018-05-12] MEDS: SENNA/DOCUSATE TABLET PO SCH (08:37)
[2018-05-12] MEDS: FUROSEMIDE 40 MG TABLET PO SCH ×2 (08:37→20:47)
[2018-05-12 12:10] VITALS: BP 118/74
[2018-05-12 19:55] VITALS: BP 128/77
[2018-05-12] MEDS: LOVASTATIN 10 MG TABLET PO SCH (20:47)
[2018-05-13 01:34] VITALS: BP 118/72
[2018-05-13] MEDS: METOPROLOL SUCCINATE 25 MG TAB.ER.24H PO SCH (06:00)
[2018-05-13] MEDS: ASPIRIN 81 MG TABLET EC PO SCH (06:00)
[2018-05-13] MEDS: LEVOTHYROXINE 150 MCG TABLET PO SCH (06:10)
[2018-05-13 07:15] VITALS: BP 121/75
[2018-05-13] MEDS: OMEPRAZOLE 20 MG CAPSULE.DR PO SCH (07:30)
[2018-05-13] MEDS: SENNA/DOCUSATE TABLET PO SCH (09:00)
[2018-05-13] MEDS: APIXABAN 5 MG TABLET PO SCH ×2 (09:38→23:01)
[2018-05-13] MEDS: TAMSULOSIN 0.4 MG CAP.ER.24H PO SCH (09:38)
[2018-05-13] MEDS: FUROSEMIDE 40 MG TABLET PO SCH ×2 (09:40→23:01)
[2018-05-13 13:05] VITALS: BP 130/83
[2018-05-13 19:15] VITALS: BP 128/78
[2018-05-13] MEDS: LOVASTATIN 10 MG TABLET PO SCH (21:00)
[2018-05-14 01:18] VITALS: BP 128/83
[2018-05-14 05:10] LABS: ALBUMIN 2.1 g/dL (3.4-5.0); ANION GAP 2 mmol/L (5-15); CALCIUM 7.9 mg/dL (8.5-10.1); CHLORIDE 109 mmol/L (98-107); CREATININE 0.85 mg/dL (0.7-1.3)
[2018-05-14] MEDS: LEVOTHYROXINE 150 MCG TABLET PO SCH (05:59)
[2018-05-14] MEDS: METOPROLOL SUCCINATE 25 MG TAB.ER.24H PO SCH (06:00)
[2018-05-14] MEDS: ASPIRIN 81 MG TABLET EC PO SCH (06:00)
[2018-05-14 06:35] VITALS: BP 105/66
[2018-05-14] MEDS: OMEPRAZOLE 20 MG CAPSULE.DR PO SCH (07:30)
[2018-05-14] MEDS: FERROUS SULFATE 325 MG TABLET PO SCH (08:00)
[2018-05-14] MEDS: TAMSULOSIN 0.4 MG CAP.ER.24H PO SCH (09:47)
[2018-05-14] MEDS: FUROSEMIDE 40 MG TABLET PO SCH ×2 (09:47→20:10)
[2018-05-14] MEDS: APIXABAN 5 MG TABLET PO SCH ×2 (09:47→20:10)
[2018-05-14] MEDS: SENNA/DOCUSATE TABLET PO SCH (09:47)
[2018-05-14 12:10] VITALS: BP 114/74
[2018-05-14 18:31] VITALS: BP 126/77
[2018-05-14] MEDS: LOVASTATIN 10 MG TABLET PO SCH (21:00)
[2018-05-15 00:48] VITALS: BP 113/72
[2018-05-15] MEDS: METOPROLOL SUCCINATE 25 MG TAB.ER.24H PO SCH (06:00)
[2018-05-15] MEDS: ASPIRIN 81 MG TABLET EC PO SCH (06:00)
[2018-05-15] MEDS: LEVOTHYROXINE 150 MCG TABLET PO SCH (06:06)
[2018-05-15 07:28] VITALS: BP 119/77
[2018-05-15] MEDS: OMEPRAZOLE 20 MG CAPSULE.DR PO SCH (07:30)
[2018-05-15] MEDS: FUROSEMIDE 40 MG TABLET PO SCH ×2 (08:43→22:37)
[2018-05-15] MEDS: APIXABAN 5 MG TABLET PO SCH ×2 (08:43→22:36)
[2018-05-15] MEDS: TAMSULOSIN 0.4 MG CAP.ER.24H PO SCH (08:44)
[2018-05-15] MEDS: SENNA/DOCUSATE TABLET PO SCH (08:45)
[2018-05-15 13:23] VITALS: BP 119/77
[2018-05-15 19:03] VITALS: BP 122/77
[2018-05-15] MEDS: LOVASTATIN 10 MG TABLET PO SCH (21:00)
[2018-05-16 01:45] VITALS: BP 112/72
[2018-05-16] MEDS: METOPROLOL SUCCINATE 25 MG TAB.ER.24H PO SCH ×2 (06:00→23:06)
[2018-05-16] MEDS: ASPIRIN 81 MG TABLET EC PO SCH ×2 (06:00→23:06)
[2018-05-16] MEDS: LEVOTHYROXINE 150 MCG TABLET PO SCH (06:20)
[2018-05-16 07:26] VITALS: BP 118/73
[2018-05-16] MEDS: OMEPRAZOLE 20 MG CAPSULE.DR PO SCH (07:30)
[2018-05-16] MEDS: FERROUS SULFATE 325 MG TABLET PO SCH (07:41)
[2018-05-16] MEDS: SENNA/DOCUSATE TABLET PO SCH (07:41)
[2018-05-16] MEDS: TAMSULOSIN 0.4 MG CAP.ER.24H PO SCH (07:41)
[2018-05-16] MEDS: FUROSEMIDE 40 MG TABLET PO SCH ×2 (08:33→19:50)
[2018-05-16] MEDS: APIXABAN 5 MG TABLET PO SCH ×2 (08:33→19:50)
[2018-05-16 12:31] VITALS: BP 122/78
[2018-05-16 19:15] VITALS: BP 136/87
[2018-05-16] MEDS: LOVASTATIN 10 MG TABLET PO SCH (19:51)
[2018-05-17 01:50] VITALS: BP 133/86
[2018-05-17] MEDS: LEVOTHYROXINE 150 MCG TABLET PO SCH (04:33)
[2018-05-17 06:43] VITALS: BP 123/72
[2018-05-17] MEDS: OMEPRAZOLE 20 MG CAPSULE.DR PO SCH (07:30)
[2018-05-17] MEDS: APIXABAN 5 MG TABLET PO SCH ×2 (08:25→20:45)
[2018-05-17] MEDS: TAMSULOSIN 0.4 MG CAP.ER.24H PO SCH (08:26)
[2018-05-17] MEDS: FUROSEMIDE 40 MG TABLET PO SCH ×2 (08:26→20:45)
[2018-05-17] MEDS: SENNA/DOCUSATE TABLET PO SCH (08:26)
[2018-05-17 13:09] VITALS: BP 135/83
[2018-05-17 13:18] VITALS: BP 121/68
[2018-05-17 19:17] VITALS: BP 144/83
[2018-05-17] MEDS: LOVASTATIN 10 MG TABLET PO SCH (19:21)
[2018-05-18 01:11] VITALS: BP 99/65
[2018-05-18] MEDS: ASPIRIN 81 MG TABLET EC PO SCH (02:48)
[2018-05-18] MEDS: METOPROLOL SUCCINATE 25 MG TAB.ER.24H PO SCH (02:48)
[2018-05-18] MEDS: LEVOTHYROXINE 150 MCG TABLET PO SCH (06:07)
[2018-05-18 06:46] VITALS: BP 126/80
[2018-05-18] MEDS: OMEPRAZOLE 20 MG CAPSULE.DR PO SCH (07:30)
[2018-05-18] MEDS: FERROUS SULFATE 325 MG TABLET PO SCH (08:00)
[2018-05-18] MEDS: TAMSULOSIN 0.4 MG CAP.ER.24H PO SCH (09:00)
[2018-05-18] MEDS: SENNA/DOCUSATE TABLET PO SCH (09:00)
[2018-05-18] MEDS: FUROSEMIDE 40 MG TABLET PO SCH ×2 (10:10→20:15)
[2018-05-18] MEDS: APIXABAN 5 MG TABLET PO SCH ×2 (10:11→20:15)
[2018-05-18 12:02] VITALS: BP 107/67
[2018-05-18 19:07] VITALS: BP 131/80
[2018-05-18] MEDS: LOVASTATIN 10 MG TABLET PO SCH (19:19)
[2018-05-19 01:10] VITALS: BP 122/76
[2018-05-19 05:33] LABS: BASOPHILS # (AUTO) 0.08 x10^3/uL (0-0.1); BASOPHILS % (AUTO) 2 % (0-1); EOSINOPHILS # (AUTO) 0.35 x10^3/uL (0-0.4); EOSINOPHILS % (AUTO) 8 % (1-7); LYMPHOCYTES # (AUTO) 0.55 x10^3/uL (1-3.4); LYMPHOCYTES % (AUTO) 13 % (22-44); MD NO; MEAN CORPUSCULAR HEMOGLOBIN 30.4 pg (27.5-34.5); MEAN CORPUSCULAR HGB CONC 32.6 g/dL (33.2-36.2); MEAN CORPUSCULAR VOLUME 93.4 fL (81-97); MEAN PLATELET VOLUME 8.7 fL (7.4-10.4); MONOCYTES # (AUTO) 0.42 x10^3/uL (0.2-0.8); MONOCYTES % (AUTO) 10 % (2-9); NEUTROPHILS # (AUTO) 2.99 x10^3/uL (1.8-6.8); NEUTROPHILS % (AUTO) 68 % (42-75); PLATELET COUNT 192 x10^3/uL (130-400); RED BLOOD COUNT 2.97 x10^6/uL (4.38-5.82); RED CELL DISTRIBUTION WIDTH 18.9 % (9.4-14.8)
[2018-05-19] MEDS: ASPIRIN 81 MG TABLET EC PO SCH (05:41)
[2018-05-19] MEDS: METOPROLOL SUCCINATE 25 MG TAB.ER.24H PO SCH (05:41)
[2018-05-19 05:45] LABS: ALBUMIN 2.1 g/dL (3.4-5.0); ANION GAP 6 mmol/L (5-15); CALCIUM 8.1 mg/dL (8.5-10.1); CHLORIDE 104 mmol/L (98-107); CREATININE 0.84 mg/dL (0.7-1.3)
[2018-05-19] MEDS: LEVOTHYROXINE 150 MCG TABLET PO SCH (05:46)
[2018-05-19 06:37] VITALS: BP 116/81
[2018-05-19] MEDS: OMEPRAZOLE 20 MG CAPSULE.DR PO SCH (07:30)
[2018-05-19] MEDS: TAMSULOSIN 0.4 MG CAP.ER.24H PO SCH (08:09)
[2018-05-19] MEDS: APIXABAN 5 MG TABLET PO SCH ×2 (08:09→20:29)
[2018-05-19] MEDS: FUROSEMIDE 40 MG TABLET PO SCH ×2 (08:09→20:30)
[2018-05-19] MEDS: SENNA/DOCUSATE TABLET PO SCH (08:11)
[2018-05-19 12:02] VITALS: BP 126/79
[2018-05-19] MEDS ORDERED: GLUCAGON 1 MG IM PRN (17:30)
[2018-05-19] MEDS ORDERED: DEXTROSE 4 GM TAB.CHEW PO PRN (17:30)
[2018-05-19] MEDS ORDERED: DEXTROSE 50%, 50ML SYRINGE IVPush PRN (17:30)
[2018-05-19 19:03] VITALS: BP 136/86
[2018-05-19] MEDS: SODIUM CHLORIDE FLUSH 10ML SYR IVF SCH (20:29)
[2018-05-19] MEDS: LOVASTATIN 10 MG TABLET PO SCH (20:30)
[2018-05-20 02:30] VITALS: BP 120/76
[2018-05-20] MEDS: METOPROLOL SUCCINATE 25 MG TAB.ER.24H PO SCH (06:00)
[2018-05-20] MEDS: ASPIRIN 81 MG TABLET EC PO SCH (06:00)
[2018-05-20] MEDS: LEVOTHYROXINE 150 MCG TABLET PO SCH (06:11)
[2018-05-20 06:42] VITALS: BP 119/77
[2018-05-20] MEDS: OMEPRAZOLE 20 MG CAPSULE.DR PO SCH (07:30)
[2018-05-20] MEDS: APIXABAN 5 MG TABLET PO SCH ×2 (07:45→20:49)
[2018-05-20] MEDS: FUROSEMIDE 40 MG TABLET PO SCH ×2 (07:45→20:49)
[2018-05-20] MEDS: FERROUS SULFATE 325 MG TABLET PO SCH (07:47)
[2018-05-20] MEDS: SODIUM CHLORIDE FLUSH 10ML SYR IVF SCH ×2 (07:47→20:49)
[2018-05-20] MEDS: SENNA/DOCUSATE TABLET PO SCH (07:48)
[2018-05-20] MEDS: TAMSULOSIN 0.4 MG CAP.ER.24H PO SCH (07:48)
[2018-05-20 14:25] VITALS: BP 126/79
[2018-05-20 18:34] VITALS: BP 118/83
[2018-05-20] MEDS: LOVASTATIN 10 MG TABLET PO SCH (20:49)
[2018-05-21 00:30] VITALS: BP 115/74
[2018-05-21] MEDS: ASPIRIN 81 MG TABLET EC PO SCH (05:48)
[2018-05-21] MEDS: METOPROLOL SUCCINATE 25 MG TAB.ER.24H PO SCH (05:49)
[2018-05-21] MEDS: LEVOTHYROXINE 150 MCG TABLET PO SCH (05:55)
[2018-05-21] MEDS: OMEPRAZOLE 20 MG CAPSULE.DR PO SCH (07:30)
[2018-05-21 08:00] VITALS: BP 119/78
[2018-05-21] MEDS: SODIUM CHLORIDE FLUSH 10ML SYR IVF SCH ×2 (08:18→20:53)
[2018-05-21] MEDS: SENNA/DOCUSATE TABLET PO SCH (08:19)
[2018-05-21] MEDS: APIXABAN 5 MG TABLET PO SCH ×2 (08:20→20:56)
[2018-05-21] MEDS: FUROSEMIDE 40 MG TABLET PO SCH ×2 (08:20→20:56)
[2018-05-21] MEDS: TAMSULOSIN 0.4 MG CAP.ER.24H PO SCH (08:28)
[2018-05-21 14:18] VITALS: BP 115/72
[2018-05-21 19:26] VITALS: BP 136/87
[2018-05-21] MEDS: LOVASTATIN 10 MG TABLET PO SCH (20:55)
[2018-05-22 01:08] VITALS: BP 132/82
[2018-05-22] MEDS: ASPIRIN 81 MG TABLET EC PO SCH (06:00)
[2018-05-22] MEDS: METOPROLOL SUCCINATE 25 MG TAB.ER.24H PO SCH (06:00)
[2018-05-22] MEDS: LEVOTHYROXINE 150 MCG TABLET PO SCH (06:16)
[2018-05-22] MEDS: OMEPRAZOLE 20 MG CAPSULE.DR PO SCH (07:30)
[2018-05-22 07:40] VITALS: BP 127/78
[2018-05-22] MEDS: FERROUS SULFATE 325 MG TABLET PO SCH (08:00)
[2018-05-22] MEDS: APIXABAN 5 MG TABLET PO SCH ×2 (08:10→20:52)
[2018-05-22] MEDS: TAMSULOSIN 0.4 MG CAP.ER.24H PO SCH (08:10)
[2018-05-22] MEDS: FUROSEMIDE 40 MG TABLET PO SCH ×2 (08:12→21:00)
[2018-05-22] MEDS: SENNA/DOCUSATE TABLET PO SCH (08:12)
[2018-05-22] MEDS: SODIUM CHLORIDE FLUSH 10ML SYR IVF SCH ×2 (09:00→20:53)
[2018-05-22 13:42] VITALS: BP_SYST 118; BP_SYST 126; BP_DIAS 81; BP_DIAS 82
[2018-05-22 18:59] VITALS: BP 144/91
[2018-05-22] MEDS: LOVASTATIN 10 MG TABLET PO SCH (20:54)
[2018-05-22 20:59] VITALS: BP 120/75
[2018-05-23 01:13] VITALS: BP 118/72
[2018-05-23] MEDS: ASPIRIN 81 MG TABLET EC PO SCH (06:00)
[2018-05-23] MEDS: METOPROLOL SUCCINATE 25 MG TAB.ER.24H PO SCH (06:00)
[2018-05-23] MEDS: LEVOTHYROXINE 150 MCG TABLET PO SCH (06:01)
[2018-05-23 07:05] VITALS: BP 116/72
[2018-05-23] MEDS: OMEPRAZOLE 20 MG CAPSULE.DR PO SCH (07:30)
[2018-05-23] MEDS: TAMSULOSIN 0.4 MG CAP.ER.24H PO SCH (09:00)
[2018-05-23] MEDS: SODIUM CHLORIDE FLUSH 10ML SYR IVF SCH ×2 (09:00→21:00)
[2018-05-23] MEDS: APIXABAN 5 MG TABLET PO SCH ×2 (09:00→21:48)
[2018-05-23] MEDS: FUROSEMIDE 40 MG TABLET PO SCH ×2 (09:00→21:48)
[2018-05-23] MEDS: SENNA/DOCUSATE TABLET PO SCH (09:00)
[2018-05-23 12:58] VITALS: BP 129/81
[2018-05-23 19:20] VITALS: BP 146/89
[2018-05-23] MEDS: LOVASTATIN 10 MG TABLET PO SCH (21:00)
[2018-05-24 01:10] VITALS: BP 138/84
[2018-05-24] MEDS: ASPIRIN 81 MG TABLET EC PO SCH (05:43)
[2018-05-24] MEDS: METOPROLOL SUCCINATE 25 MG TAB.ER.24H PO SCH (05:44)
[2018-05-24] MEDS: LEVOTHYROXINE 150 MCG TABLET PO SCH (05:48)
[2018-05-24 06:39] VITALS: BP 132/80
[2018-05-24] MEDS: OMEPRAZOLE 20 MG CAPSULE.DR PO SCH (07:30)
[2018-05-24] MEDS: FERROUS SULFATE 325 MG TABLET PO SCH (08:00)
[2018-05-24] MEDS: SODIUM CHLORIDE FLUSH 10ML SYR IVF SCH ×2 (09:00→21:00)
[2018-05-24] MEDS: TAMSULOSIN 0.4 MG CAP.ER.24H PO SCH (09:00)
[2018-05-24] MEDS: SENNA/DOCUSATE TABLET PO SCH (09:00)
[2018-05-24] MEDS: FUROSEMIDE 40 MG TABLET PO SCH ×2 (09:58→21:14)
[2018-05-24] MEDS: APIXABAN 5 MG TABLET PO SCH ×2 (09:58→21:14)
[2018-05-24 13:15] VITALS: BP 131/79
[2018-05-24 19:40] VITALS: BP 143/89
[2018-05-24] MEDS: LOVASTATIN 10 MG TABLET PO SCH (21:00)
[2018-05-25 01:25] VITALS: BP 119/74
[2018-05-25] MEDS: ASPIRIN 81 MG TABLET EC PO SCH (05:39)
[2018-05-25] MEDS: METOPROLOL SUCCINATE 25 MG TAB.ER.24H PO SCH (05:40)
[2018-05-25] MEDS: LEVOTHYROXINE 150 MCG TABLET PO SCH (05:46)
[2018-05-25 07:17] VITALS: BP 134/87
[2018-05-25] MEDS: OMEPRAZOLE 20 MG CAPSULE.DR PO SCH (07:30)
[2018-05-25] MEDS: APIXABAN 5 MG TABLET PO SCH ×2 (08:43→21:20)
[2018-05-25] MEDS: SENNA/DOCUSATE TABLET PO SCH (08:44)
[2018-05-25] MEDS: FUROSEMIDE 40 MG TABLET PO SCH ×2 (08:44→21:20)
[2018-05-25] MEDS: TAMSULOSIN 0.4 MG CAP.ER.24H PO SCH (08:44)
[2018-05-25] MEDS: SODIUM CHLORIDE FLUSH 10ML SYR IVF SCH ×2 (08:44→21:00)
[2018-05-25 13:27] VITALS: BP 144/82
[2018-05-25 19:45] VITALS: BP 130/83
[2018-05-25] MEDS: LOVASTATIN 10 MG TABLET PO SCH (21:00)
[2018-05-26 00:51] VITALS: BP 126/50
[2018-05-26] MEDS: ASPIRIN 81 MG TABLET EC PO SCH (05:31)
[2018-05-26] MEDS: METOPROLOL SUCCINATE 25 MG TAB.ER.24H PO SCH (05:31)
[2018-05-26] MEDS: LEVOTHYROXINE 150 MCG TABLET PO SCH (05:31)
[2018-05-26 07:07] VITALS: BP 129/67
[2018-05-26] MEDS: OMEPRAZOLE 20 MG CAPSULE.DR PO SCH (07:30)
[2018-05-26] MEDS: FERROUS SULFATE 325 MG TABLET PO SCH (08:00)
[2018-05-26] MEDS: SODIUM CHLORIDE FLUSH 10ML SYR IVF SCH ×2 (09:00→20:03)
[2018-05-26] MEDS: SENNA/DOCUSATE TABLET PO SCH (09:00)
[2018-05-26] MEDS: FUROSEMIDE 40 MG TABLET PO SCH ×2 (09:20→20:01)
[2018-05-26] MEDS: TAMSULOSIN 0.4 MG CAP.ER.24H PO SCH (09:20)
[2018-05-26] MEDS: APIXABAN 5 MG TABLET PO SCH ×2 (09:20→20:01)
[2018-05-26 13:04] VITALS: BP 114/78
[2018-05-26 19:25] VITALS: BP 123/80
[2018-05-26] MEDS: LOVASTATIN 10 MG TABLET PO SCH (20:03)
[2018-05-27 01:40] VITALS: BP 129/84
[2018-05-27] MEDS: LEVOTHYROXINE 150 MCG TABLET PO SCH (05:32)
[2018-05-27] MEDS: ASPIRIN 81 MG TABLET EC PO SCH (05:33)
[2018-05-27] MEDS: METOPROLOL SUCCINATE 25 MG TAB.ER.24H PO SCH (05:33)
[2018-05-27 08:05] VITALS: BP 115/74
[2018-05-27] MEDS: OMEPRAZOLE 20 MG CAPSULE.DR PO SCH (08:17)
[2018-05-27] MEDS: SODIUM CHLORIDE FLUSH 10ML SYR IVF SCH ×2 (08:17→20:00)
[2018-05-27] MEDS: FUROSEMIDE 40 MG TABLET PO SCH ×2 (08:18→20:00)
[2018-05-27] MEDS: TAMSULOSIN 0.4 MG CAP.ER.24H PO SCH (08:18)
[2018-05-27] MEDS: APIXABAN 5 MG TABLET PO SCH ×2 (08:18→20:00)
[2018-05-27] MEDS: SENNA/DOCUSATE TABLET PO SCH (08:18)
[2018-05-27 14:30] VITALS: BP 110/70
[2018-05-27 19:32] VITALS: BP 120/75
[2018-05-27] MEDS: LOVASTATIN 10 MG TABLET PO SCH (20:00)
[2018-05-28 01:18] VITALS: BP 123/77
[2018-05-28] MEDS: ASPIRIN 81 MG TABLET EC PO SCH (06:00)
[2018-05-28] MEDS: METOPROLOL SUCCINATE 25 MG TAB.ER.24H PO SCH (06:00)
[2018-05-28] MEDS: LEVOTHYROXINE 150 MCG TABLET PO SCH (06:15)
[2018-05-28] MEDS: FERROUS SULFATE 325 MG TABLET PO SCH (08:00)
[2018-05-28 08:08] VITALS: BP 122/78
[2018-05-28] MEDS: OMEPRAZOLE 20 MG CAPSULE.DR PO SCH (08:32)
[2018-05-28] MEDS: APIXABAN 5 MG TABLET PO SCH ×2 (08:33→19:50)
[2018-05-28] MEDS: SENNA/DOCUSATE TABLET PO SCH (08:33)
[2018-05-28] MEDS: FUROSEMIDE 40 MG TABLET PO SCH ×2 (08:34→19:50)
[2018-05-28] MEDS: SODIUM CHLORIDE FLUSH 10ML SYR IVF SCH ×2 (08:36→19:50)
[2018-05-28] MEDS: TAMSULOSIN 0.4 MG CAP.ER.24H PO SCH (08:37)
[2018-05-28 14:11] VITALS: BP 132/80
[2018-05-28] MEDS: LOVASTATIN 10 MG TABLET PO SCH (19:50)
[2018-05-28 19:52] VITALS: BP 135/88
[2018-05-29 01:09] VITALS: BP 134/81
[2018-05-29 05:48] LABS: BASOPHILS # (AUTO) 0.07 x10^3/uL (0-0.1); BASOPHILS % (AUTO) 2 % (0-1); EOSINOPHILS # (AUTO) 0.38 x10^3/uL (0-0.4); EOSINOPHILS % (AUTO) 10 % (1-7); LYMPHOCYTES # (AUTO) 0.54 x10^3/uL (1-3.4); LYMPHOCYTES % (AUTO) 14 % (22-44); MD NO; MEAN CORPUSCULAR HEMOGLOBIN 30.7 pg (27.5-34.5); MEAN CORPUSCULAR HGB CONC 32.6 g/dL (33.2-36.2); MEAN CORPUSCULAR VOLUME 94.3 fL (81-97); MEAN PLATELET VOLUME 8.4 fL (7.4-10.4); MONOCYTES # (AUTO) 0.44 x10^3/uL (0.2-0.8); MONOCYTES % (AUTO) 11 % (2-9); NEUTROPHILS # (AUTO) 2.57 x10^3/uL (1.8-6.8); NEUTROPHILS % (AUTO) 64 % (42-75); PLATELET COUNT 194 x10^3/uL (130-400); RED BLOOD COUNT 2.81 x10^6/uL (4.38-5.82); RED CELL DISTRIBUTION WIDTH 18.6 % (9.4-14.8)
[2018-05-29 05:59] LABS: ANION GAP 5 mmol/L (5-15); CALCIUM 7.9 mg/dL (8.5-10.1); CHLORIDE 103 mmol/L (98-107)
[2018-05-29] MEDS: METOPROLOL SUCCINATE 25 MG TAB.ER.24H PO SCH (06:00)
[2018-05-29] MEDS: ASPIRIN 81 MG TABLET EC PO SCH (06:00)
[2018-05-29 06:02] LABS: CREATININE 0.79 mg/dL (0.7-1.3)
[2018-05-29] MEDS: LEVOTHYROXINE 150 MCG TABLET PO SCH (06:11)
[2018-05-29 06:37] VITALS: BP 135/82
[2018-05-29] MEDS: OMEPRAZOLE 20 MG CAPSULE.DR PO SCH (07:30)
[2018-05-29] MEDS: SENNA/DOCUSATE TABLET PO SCH (09:00)
[2018-05-29] MEDS: TAMSULOSIN 0.4 MG CAP.ER.24H PO SCH (09:00)
[2018-05-29] MEDS: SODIUM CHLORIDE FLUSH 10ML SYR IVF SCH ×2 (09:00→20:06)
[2018-05-29] MEDS: APIXABAN 5 MG TABLET PO SCH ×2 (09:33→20:06)
[2018-05-29] MEDS: FUROSEMIDE 40 MG TABLET PO SCH ×2 (09:34→20:06)
[2018-05-29 12:38] VITALS: BP 126/81
[2018-05-29 18:28] VITALS: BP 146/89
[2018-05-29] MEDS: LOVASTATIN 10 MG TABLET PO SCH (20:06)
[2018-05-29 22:55] VITALS: BP 126/78
[2018-05-30] MEDS: LEVOTHYROXINE 150 MCG TABLET PO SCH (05:29)
[2018-05-30] MEDS: METOPROLOL SUCCINATE 25 MG TAB.ER.24H PO SCH (05:30)
[2018-05-30] MEDS: ASPIRIN 81 MG TABLET EC PO SCH (05:30)
[2018-05-30] MEDS: OMEPRAZOLE 20 MG CAPSULE.DR PO SCH (07:30)
[2018-05-30 07:32] VITALS: BP 136/87
[2018-05-30] MEDS: FERROUS SULFATE 325 MG TABLET PO SCH (08:00)
[2018-05-30] MEDS: SODIUM CHLORIDE FLUSH 10ML SYR IVF SCH ×2 (08:18→21:05)
[2018-05-30] MEDS: SENNA/DOCUSATE TABLET PO SCH (08:19)
[2018-05-30] MEDS: TAMSULOSIN 0.4 MG CAP.ER.24H PO SCH (09:00)
[2018-05-30] MEDS: FUROSEMIDE 40 MG TABLET PO SCH ×2 (09:00→21:06)
[2018-05-30] MEDS: APIXABAN 5 MG TABLET PO SCH ×2 (09:02→21:06)
[2018-05-30 13:02] VITALS: BP 143/87
[2018-05-30 19:58] VITALS: BP 126/78
[2018-05-30] MEDS: LOVASTATIN 10 MG TABLET PO SCH (21:00)
[2018-05-31 01:21] VITALS: BP 124/76
[2018-05-31] MEDS: LEVOTHYROXINE 150 MCG TABLET PO SCH (05:45)
[2018-05-31] MEDS: METOPROLOL SUCCINATE 25 MG TAB.ER.24H PO SCH (05:45)
[2018-05-31] MEDS: ASPIRIN 81 MG TABLET EC PO SCH (05:45)
[2018-05-31 06:57] VITALS: BP 133/80
[2018-05-31] MEDS: SODIUM CHLORIDE FLUSH 10ML SYR IVF SCH ×2 (07:15→20:44)
[2018-05-31] MEDS: SENNA/DOCUSATE TABLET PO SCH (07:16)
[2018-05-31] MEDS: OMEPRAZOLE 20 MG CAPSULE.DR PO SCH (07:30)
[2018-05-31] MEDS: APIXABAN 5 MG TABLET PO SCH ×2 (07:36→21:12)
[2018-05-31] MEDS: FUROSEMIDE 40 MG TABLET PO SCH ×2 (07:36→21:12)
[2018-05-31] MEDS: TAMSULOSIN 0.4 MG CAP.ER.24H PO SCH (07:38)
[2018-05-31] MEDS: LISINOPRIL 5 MG TABLET PO SCH (07:38)
[2018-05-31 14:55] VITALS: BP 130/83
[2018-05-31 19:49] VITALS: BP 141/84
[2018-05-31] MEDS: LOVASTATIN 10 MG TABLET PO SCH (21:00)
[2018-06-01 01:14] VITALS: BP 131/81
[2018-06-01] MEDS: ASPIRIN 81 MG TABLET EC PO SCH (05:20)
[2018-06-01] MEDS: LEVOTHYROXINE 150 MCG TABLET PO SCH (05:20)
[2018-06-01] MEDS: METOPROLOL SUCCINATE 25 MG TAB.ER.24H PO SCH (05:20)
[2018-06-01 06:44] VITALS: BP 123/78
[2018-06-01] MEDS: OMEPRAZOLE 20 MG CAPSULE.DR PO SCH (07:30)
[2018-06-01] MEDS: FERROUS SULFATE 325 MG TABLET PO SCH (08:00)
[2018-06-01] MEDS: TAMSULOSIN 0.4 MG CAP.ER.24H PO SCH (08:28)
[2018-06-01] MEDS: APIXABAN 5 MG TABLET PO SCH ×2 (08:28→22:13)
[2018-06-01] MEDS: FUROSEMIDE 40 MG TABLET PO SCH ×2 (08:29→22:13)
[2018-06-01] MEDS: SENNA/DOCUSATE TABLET PO SCH (08:30)
[2018-06-01] MEDS: LISINOPRIL 5 MG TABLET PO SCH (08:30)
[2018-06-01] MEDS: SODIUM CHLORIDE FLUSH 10ML SYR IVF SCH ×2 (08:30→21:00)
[2018-06-01 12:29] VITALS: BP 129/82
[2018-06-01 18:54] VITALS: BP 147/90
[2018-06-01] MEDS: LOVASTATIN 10 MG TABLET PO SCH (21:00)
[2018-06-02 01:15] VITALS: BP 123/72
[2018-06-02] MEDS: ASPIRIN 81 MG TABLET EC PO SCH (06:00)
[2018-06-02] MEDS: METOPROLOL SUCCINATE 25 MG TAB.ER.24H PO SCH (06:00)
[2018-06-02] MEDS: LEVOTHYROXINE 150 MCG TABLET PO SCH (06:02)
[2018-06-02] MEDS: OMEPRAZOLE 20 MG CAPSULE.DR PO SCH (07:30)
[2018-06-02] MEDS: TAMSULOSIN 0.4 MG CAP.ER.24H PO SCH (08:10)
[2018-06-02] MEDS: APIXABAN 5 MG TABLET PO SCH ×2 (08:10→20:33)
[2018-06-02] MEDS: FUROSEMIDE 40 MG TABLET PO SCH ×2 (08:10→20:33)
[2018-06-02] MEDS: SENNA/DOCUSATE TABLET PO SCH (08:11)
[2018-06-02] MEDS: SODIUM CHLORIDE FLUSH 10ML SYR IVF SCH ×2 (08:11→20:33)
[2018-06-02] MEDS: LISINOPRIL 5 MG TABLET PO SCH (08:11)
[2018-06-02 08:55] VITALS: BP 130/77
[2018-06-02 13:35] VITALS: BP 122/79
[2018-06-02 19:38] VITALS: BP 126/78
[2018-06-02] MEDS: LOVASTATIN 10 MG TABLET PO SCH (20:33)
[2018-06-03 02:02] VITALS: BP 128/79
[2018-06-03] MEDS: ASPIRIN 81 MG TABLET EC PO SCH (06:00)
[2018-06-03] MEDS: METOPROLOL SUCCINATE 25 MG TAB.ER.24H PO SCH (06:00)
[2018-06-03] MEDS: LEVOTHYROXINE 150 MCG TABLET PO SCH (06:36)
[2018-06-03 07:11] VITALS: BP 136/75
[2018-06-03] MEDS: OMEPRAZOLE 20 MG CAPSULE.DR PO SCH (07:30)
[2018-06-03] MEDS: FERROUS SULFATE 325 MG TABLET PO SCH (08:00)
[2018-06-03] MEDS: SODIUM CHLORIDE FLUSH 10ML SYR IVF SCH (08:36)
[2018-06-03] MEDS: LISINOPRIL 5 MG TABLET PO SCH (08:37)
[2018-06-03] MEDS: SENNA/DOCUSATE TABLET PO SCH (08:37)
[2018-06-03] MEDS: TAMSULOSIN 0.4 MG CAP.ER.24H PO SCH (08:49)
[2018-06-03] MEDS: APIXABAN 5 MG TABLET PO SCH ×2 (08:49→20:08)
[2018-06-03] MEDS: FUROSEMIDE 40 MG TABLET PO SCH ×2 (08:49→20:09)
[2018-06-03 15:53] VITALS: BP 118/78
[2018-06-03 19:07] VITALS: BP 136/89
[2018-06-03] MEDS: LOVASTATIN 10 MG TABLET PO SCH (20:09)
[2018-06-04 02:53] VITALS: BP 125/76
[2018-06-04] MEDS: LEVOTHYROXINE 150 MCG TABLET PO SCH (05:59)
[2018-06-04] MEDS: ASPIRIN 81 MG TABLET EC PO SCH (05:59)
[2018-06-04] MEDS: METOPROLOL SUCCINATE 25 MG TAB.ER.24H PO SCH (06:00)
[2018-06-04] MEDS: APIXABAN 5 MG TABLET PO SCH ×2 (09:08→21:31)
[2018-06-04] MEDS: TAMSULOSIN 0.4 MG CAP.ER.24H PO SCH (09:08)
[2018-06-04] MEDS: SENNA/DOCUSATE TABLET PO SCH (09:09)
[2018-06-04] MEDS: LISINOPRIL 5 MG TABLET PO SCH (09:09)
[2018-06-04] MEDS: OMEPRAZOLE 20 MG CAPSULE.DR PO SCH (09:09)
[2018-06-04] MEDS: FUROSEMIDE 40 MG TABLET PO SCH ×2 (09:09→21:00)
[2018-06-04 09:31] VITALS: BP 132/78
[2018-06-04 14:19] VITALS: BP 121/86
[2018-06-04 19:53] VITALS: BP 126/82
[2018-06-04] MEDS: LOVASTATIN 10 MG TABLET PO SCH (21:00)
[2018-06-05 03:55] VITALS: BP 114/70
[2018-06-05] MEDS: ASPIRIN 81 MG TABLET EC PO SCH (05:24)
[2018-06-05] MEDS: METOPROLOL SUCCINATE 25 MG TAB.ER.24H PO SCH (05:24)
[2018-06-05] MEDS: LEVOTHYROXINE 150 MCG TABLET PO SCH (05:40)
[2018-06-05 07:19] VITALS: BP 122/70
[2018-06-05] MEDS: OMEPRAZOLE 20 MG CAPSULE.DR PO SCH (07:30)
[2018-06-05] MEDS: FERROUS SULFATE 325 MG TABLET PO SCH (08:00)
[2018-06-05] MEDS: APIXABAN 5 MG TABLET PO SCH ×2 (09:00→21:13)
[2018-06-05] MEDS: LISINOPRIL 5 MG TABLET PO SCH (09:00)
[2018-06-05] MEDS: SENNA/DOCUSATE TABLET PO SCH (09:00)
[2018-06-05] MEDS: FUROSEMIDE 40 MG TABLET PO SCH ×2 (09:05→21:13)
[2018-06-05] MEDS: TAMSULOSIN 0.4 MG CAP.ER.24H PO SCH (09:05)
[2018-06-05 14:54] VITALS: BP 126/75
[2018-06-05 20:58] VITALS: BP 127/80
[2018-06-05] MEDS: LOVASTATIN 10 MG TABLET PO SCH (21:13)
[2018-06-06 02:49] VITALS: BP 119/76
[2018-06-06] MEDS: LEVOTHYROXINE 150 MCG TABLET PO SCH (05:33)
[2018-06-06] MEDS: METOPROLOL SUCCINATE 25 MG TAB.ER.24H PO SCH (05:34)
[2018-06-06] MEDS: ASPIRIN 81 MG TABLET EC PO SCH (05:34)
[2018-06-06 07:10] VITALS: BP 132/77
[2018-06-06] MEDS: OMEPRAZOLE 20 MG CAPSULE.DR PO SCH (07:30)
[2018-06-06] MEDS: FUROSEMIDE 40 MG TABLET PO SCH ×2 (09:00→20:17)
[2018-06-06] MEDS: APIXABAN 5 MG TABLET PO SCH ×2 (09:26→20:17)
[2018-06-06] MEDS: TAMSULOSIN 0.4 MG CAP.ER.24H PO SCH (09:27)
[2018-06-06] MEDS: SENNA/DOCUSATE TABLET PO SCH (09:27)
[2018-06-06] MEDS: LISINOPRIL 5 MG TABLET PO SCH (09:27)
[2018-06-06 12:40] VITALS: BP 131/81
[2018-06-06] MEDS: LOVASTATIN 10 MG TABLET PO SCH (20:08)
[2018-06-06 20:23] VITALS: BP 128/78
[2018-06-07 03:55] VITALS: BP 118/73
[2018-06-07 05:12] LABS: ANION GAP 3 mmol/L (5-15); CALCIUM 8.1 mg/dL (8.5-10.1); CHLORIDE 102 mmol/L (98-107)
[2018-06-07 05:13] LABS: % IRON SATURATION 25 % (20-55); IRON LEVEL 38 mcg/dL (65-175); TOTAL IRON BINDING CAPACITY 155 mcg/dL (250-450)
[2018-06-07 05:14] LABS: BASOPHILS # (AUTO) 0.07 x10^3/uL (0-0.1); BASOPHILS % (AUTO) 2 % (0-1); EOSINOPHILS # (AUTO) 0.37 x10^3/uL (0-0.4); EOSINOPHILS % (AUTO) 8 % (1-7); LYMPHOCYTES # (AUTO) 0.59 x10^3/uL (1-3.4); LYMPHOCYTES % (AUTO) 13 % (22-44); MD NO; MEAN CORPUSCULAR HEMOGLOBIN 30.9 pg (27.5-34.5); MEAN CORPUSCULAR HGB CONC 32.8 g/dL (33.2-36.2); MEAN CORPUSCULAR VOLUME 94.1 fL (81-97); MEAN PLATELET VOLUME 8.2 fL (7.4-10.4); MONOCYTES # (AUTO) 0.46 x10^3/uL (0.2-0.8); MONOCYTES % (AUTO) 10 % (2-9); NEUTROPHILS # (AUTO) 3.01 x10^3/uL (1.8-6.8); NEUTROPHILS % (AUTO) 67 % (42-75); PLATELET COUNT 214 x10^3/uL (130-400); RED BLOOD COUNT 2.89 x10^6/uL (4.38-5.82); RED CELL DISTRIBUTION WIDTH 18.7 % (9.4-14.8)
[2018-06-07] MEDS: ASPIRIN 81 MG TABLET EC PO SCH (05:36)
[2018-06-07] MEDS: METOPROLOL SUCCINATE 25 MG TAB.ER.24H PO SCH (05:36)
[2018-06-07] MEDS: LEVOTHYROXINE 150 MCG TABLET PO SCH (05:45)
[2018-06-07] MEDS: OMEPRAZOLE 20 MG CAPSULE.DR PO SCH (07:30)
[2018-06-07 07:56] VITALS: BP 114/69
[2018-06-07] MEDS: FERROUS SULFATE 325 MG TABLET PO SCH (08:00)
[2018-06-07] MEDS: SENNA/DOCUSATE TABLET PO SCH (09:00)
[2018-06-07] MEDS: TAMSULOSIN 0.4 MG CAP.ER.24H PO SCH (09:00)
[2018-06-07] MEDS: FUROSEMIDE 40 MG TABLET PO SCH ×2 (09:00→21:00)
[2018-06-07] MEDS: LISINOPRIL 5 MG TABLET PO SCH (09:00)
[2018-06-07] MEDS: APIXABAN 5 MG TABLET PO SCH ×2 (10:18→21:12)
[2018-06-07 12:20] VITALS: BP 134/83
[2018-06-07 20:00] VITALS: BP 131/85
[2018-06-07] MEDS: LOVASTATIN 10 MG TABLET PO SCH (21:00)
[2018-06-08 00:27] VITALS: BP 134/80
[2018-06-08] MEDS: METOPROLOL SUCCINATE 25 MG TAB.ER.24H PO SCH (05:14)
[2018-06-08] MEDS: ASPIRIN 81 MG TABLET EC PO SCH (05:14)
[2018-06-08] MEDS: LEVOTHYROXINE 150 MCG TABLET PO SCH (05:25)
[2018-06-08] MEDS: OMEPRAZOLE 20 MG CAPSULE.DR PO SCH (07:30)
[2018-06-08 07:51] VITALS: BP 137/75
[2018-06-08] MEDS: SENNA/DOCUSATE TABLET PO SCH (09:00)
[2018-06-08] MEDS: LISINOPRIL 5 MG TABLET PO SCH (09:00)
[2018-06-08] MEDS: APIXABAN 5 MG TABLET PO SCH ×2 (09:49→20:13)
[2018-06-08] MEDS: FUROSEMIDE 40 MG TABLET PO SCH ×2 (09:49→21:00)
[2018-06-08] MEDS: TAMSULOSIN 0.4 MG CAP.ER.24H PO SCH (09:50)
[2018-06-08 12:23] VITALS: BP 130/80
[2018-06-08 20:00] VITALS: BP 129/75
[2018-06-08] MEDS: LOVASTATIN 10 MG TABLET PO SCH (21:00)
[2018-06-09 02:00] VITALS: BP 123/72
[2018-06-09] MEDS: METOPROLOL SUCCINATE 25 MG TAB.ER.24H PO SCH (04:57)
[2018-06-09] MEDS: LEVOTHYROXINE 150 MCG TABLET PO SCH (04:57)
[2018-06-09] MEDS: ASPIRIN 81 MG TABLET EC PO SCH (04:57)
[2018-06-09] MEDS: OMEPRAZOLE 20 MG CAPSULE.DR PO SCH (07:04)
[2018-06-09] MEDS: FERROUS SULFATE 325 MG TABLET PO SCH (07:05)
[2018-06-09] MEDS: SENNA/DOCUSATE TABLET PO SCH (07:40)
[2018-06-09] MEDS: LISINOPRIL 5 MG TABLET PO SCH (07:40)
[2018-06-09 08:22] VITALS: BP 130/80
[2018-06-09] MEDS: TAMSULOSIN 0.4 MG CAP.ER.24H PO SCH (10:06)
[2018-06-09] MEDS: APIXABAN 5 MG TABLET PO SCH ×2 (10:06→20:47)
[2018-06-09] MEDS: FUROSEMIDE 40 MG TABLET PO SCH ×2 (10:06→20:35)
[2018-06-09 13:00] VITALS: BP 102/56
[2018-06-09 20:00] VITALS: BP 131/85
[2018-06-09] MEDS: LOVASTATIN 10 MG TABLET PO SCH (20:36)
[2018-06-10 02:00] VITALS: BP 105/69
[2018-06-10] MEDS: ASPIRIN 81 MG TABLET EC PO SCH (06:00)
[2018-06-10] MEDS: METOPROLOL SUCCINATE 25 MG TAB.ER.24H PO SCH (06:00)
[2018-06-10] MEDS: LEVOTHYROXINE 150 MCG TABLET PO SCH (06:26)
[2018-06-10] MEDS: OMEPRAZOLE 20 MG CAPSULE.DR PO SCH (07:13)
[2018-06-10 07:31] VITALS: BP 126/75
[2018-06-10] MEDS: LISINOPRIL 5 MG TABLET PO SCH (07:33)
[2018-06-10] MEDS: SENNA/DOCUSATE TABLET PO SCH (07:34)
[2018-06-10] MEDS: APIXABAN 5 MG TABLET PO SCH ×2 (09:39→19:46)
[2018-06-10] MEDS: TAMSULOSIN 0.4 MG CAP.ER.24H PO SCH (09:39)
[2018-06-10] MEDS: FUROSEMIDE 40 MG TABLET PO SCH ×2 (09:39→19:46)
[2018-06-10 13:05] VITALS: BP 145/63
[2018-06-10 18:49] VITALS: BP 124/78
[2018-06-10] MEDS: LOVASTATIN 10 MG TABLET PO SCH (19:46)
[2018-06-11 00:34] VITALS: BP 124/79
[2018-06-11] MEDS: LEVOTHYROXINE 150 MCG TABLET PO SCH (05:21)
[2018-06-11] MEDS: METOPROLOL SUCCINATE 25 MG TAB.ER.24H PO SCH (05:21)
[2018-06-11] MEDS: ASPIRIN 81 MG TABLET EC PO SCH (05:21)
[2018-06-11 07:17] VITALS: BP 117/73
[2018-06-11] MEDS: OMEPRAZOLE 20 MG CAPSULE.DR PO SCH (07:30)
[2018-06-11] MEDS: FERROUS SULFATE 325 MG TABLET PO SCH (08:00)
[2018-06-11] MEDS: FUROSEMIDE 40 MG TABLET PO SCH ×2 (08:20→19:41)
[2018-06-11] MEDS: TAMSULOSIN 0.4 MG CAP.ER.24H PO SCH (08:20)
[2018-06-11] MEDS: APIXABAN 5 MG TABLET PO SCH ×2 (08:20→19:41)
[2018-06-11] MEDS: SENNA/DOCUSATE TABLET PO SCH (08:25)
[2018-06-11] MEDS: LISINOPRIL 5 MG TABLET PO SCH (08:29)
[2018-06-11 13:01] VITALS: BP 115/76
[2018-06-11 18:48] VITALS: BP 119/77
[2018-06-11] MEDS: LOVASTATIN 10 MG TABLET PO SCH (19:41)
[2018-06-12 00:57] VITALS: BP 117/75
[2018-06-12] MEDS: METOPROLOL SUCCINATE 25 MG TAB.ER.24H PO SCH (05:06)
[2018-06-12] MEDS: ASPIRIN 81 MG TABLET EC PO SCH (05:06)
[2018-06-12] MEDS: LEVOTHYROXINE 150 MCG TABLET PO SCH (05:06)
[2018-06-12 07:17] VITALS: BP 122/75
[2018-06-12] MEDS: OMEPRAZOLE 20 MG CAPSULE.DR PO SCH (07:30)
[2018-06-12] MEDS: FUROSEMIDE 40 MG TABLET PO SCH ×2 (08:33→19:14)
[2018-06-12] MEDS: LISINOPRIL 5 MG TABLET PO SCH (08:33)
[2018-06-12] MEDS: APIXABAN 5 MG TABLET PO SCH ×2 (08:33→19:14)
[2018-06-12] MEDS: TAMSULOSIN 0.4 MG CAP.ER.24H PO SCH (08:33)
[2018-06-12] MEDS: SENNA/DOCUSATE TABLET PO SCH (08:34)
[2018-06-12 12:54] VITALS: BP 123/81
[2018-06-12] MEDS: LOVASTATIN 10 MG TABLET PO SCH (19:16)
[2018-06-12 19:36] VITALS: BP 110/72
[2018-06-13 03:30] VITALS: BP 122/70
[2018-06-13] MEDS: LEVOTHYROXINE 150 MCG TABLET PO SCH (05:29)
[2018-06-13] MEDS: ASPIRIN 81 MG TABLET EC PO SCH (05:29)
[2018-06-13] MEDS: METOPROLOL SUCCINATE 25 MG TAB.ER.24H PO SCH (05:30)
[2018-06-13] MEDS: OMEPRAZOLE 20 MG CAPSULE.DR PO SCH (07:30)
[2018-06-13 07:47] VITALS: BP 115/72
[2018-06-13] MEDS: FERROUS SULFATE 325 MG TABLET PO SCH (07:49)
[2018-06-13] MEDS: SENNA/DOCUSATE TABLET PO SCH (09:00)
[2018-06-13] MEDS: LISINOPRIL 5 MG TABLET PO SCH (09:00)
[2018-06-13] MEDS: TAMSULOSIN 0.4 MG CAP.ER.24H PO SCH (09:00)
[2018-06-13] MEDS: FUROSEMIDE 40 MG TABLET PO SCH ×2 (09:06→19:56)
[2018-06-13] MEDS: APIXABAN 5 MG TABLET PO SCH ×2 (09:06→20:00)
[2018-06-13 12:32] VITALS: BP 130/82
[2018-06-13 19:35] VITALS: BP 122/79
[2018-06-13] MEDS: LOVASTATIN 10 MG TABLET PO SCH (19:56)
[2018-06-14 01:05] VITALS: BP 126/77
[2018-06-14] MEDS: METOPROLOL SUCCINATE 25 MG TAB.ER.24H PO SCH (05:29)
[2018-06-14] MEDS: ASPIRIN 81 MG TABLET EC PO SCH (05:29)
[2018-06-14] MEDS: LEVOTHYROXINE 150 MCG TABLET PO SCH (05:29)
[2018-06-14 06:51] VITALS: BP 118/73
[2018-06-14] MEDS: LISINOPRIL 5 MG TABLET PO SCH (08:38)
[2018-06-14] MEDS: TAMSULOSIN 0.4 MG CAP.ER.24H PO SCH (08:38)
[2018-06-14] MEDS: OMEPRAZOLE 20 MG CAPSULE.DR PO SCH (08:38)
[2018-06-14] MEDS: APIXABAN 5 MG TABLET PO SCH ×2 (08:38→21:23)
[2018-06-14] MEDS: FUROSEMIDE 40 MG TABLET PO SCH ×2 (08:38→21:23)
[2018-06-14] MEDS: SENNA/DOCUSATE TABLET PO SCH (08:39)
[2018-06-14 12:28] VITALS: BP 114/75
[2018-06-14 19:07] VITALS: BP 110/72
[2018-06-14] MEDS: LOVASTATIN 10 MG TABLET PO SCH (21:00)
[2018-06-15 01:14] VITALS: BP 104/66
[2018-06-15] MEDS: METOPROLOL SUCCINATE 25 MG TAB.ER.24H PO SCH (05:09)
[2018-06-15] MEDS: ASPIRIN 81 MG TABLET EC PO SCH (05:09)
[2018-06-15] MEDS: LEVOTHYROXINE 150 MCG TABLET PO SCH (05:09)
[2018-06-15 06:42] VITALS: BP 123/76
[2018-06-15] MEDS: OMEPRAZOLE 20 MG CAPSULE.DR PO SCH (07:30)
[2018-06-15] MEDS: TAMSULOSIN 0.4 MG CAP.ER.24H PO SCH (08:00)
[2018-06-15] MEDS: APIXABAN 5 MG TABLET PO SCH ×2 (08:00→19:14)
[2018-06-15] MEDS: FERROUS SULFATE 325 MG TABLET PO SCH (08:00)
[2018-06-15] MEDS: FUROSEMIDE 40 MG TABLET PO SCH ×2 (08:01→19:14)
[2018-06-15] MEDS: SENNA/DOCUSATE TABLET PO SCH (08:01)
[2018-06-15] MEDS: LISINOPRIL 5 MG TABLET PO SCH (08:01)
[2018-06-15 12:46] VITALS: BP 119/73
[2018-06-15 18:54] VITALS: BP 138/88
[2018-06-15] MEDS: LOVASTATIN 10 MG TABLET PO SCH (19:15)
[2018-06-16 01:01] VITALS: BP 135/82
[2018-06-16] MEDS: LEVOTHYROXINE 150 MCG TABLET PO SCH (05:20)
[2018-06-16] MEDS: ASPIRIN 81 MG TABLET EC PO SCH (05:21)
[2018-06-16] MEDS: METOPROLOL SUCCINATE 25 MG TAB.ER.24H PO SCH (05:21)
[2018-06-16 07:25] VITALS: BP 121/79
[2018-06-16] MEDS: OMEPRAZOLE 20 MG CAPSULE.DR PO SCH (07:30)
[2018-06-16] MEDS: APIXABAN 5 MG TABLET PO SCH ×2 (08:01→19:49)
[2018-06-16] MEDS: FUROSEMIDE 40 MG TABLET PO SCH ×2 (08:01→19:49)
[2018-06-16] MEDS: TAMSULOSIN 0.4 MG CAP.ER.24H PO SCH (08:02)
[2018-06-16] MEDS: SENNA/DOCUSATE TABLET PO SCH (08:02)
[2018-06-16] MEDS: LISINOPRIL 5 MG TABLET PO SCH (08:02)
[2018-06-16 11:52] VITALS: BP 125/79
[2018-06-16 14:00] VITALS: BP 125/79
[2018-06-16 16:31] VITALS: BP 121/79
[2018-06-16 19:10] VITALS: BP 125/83
[2018-06-16] MEDS: LOVASTATIN 10 MG TABLET PO SCH (19:49)
[2018-06-17 01:06] VITALS: BP 118/76
[2018-06-17] MEDS: METOPROLOL SUCCINATE 25 MG TAB.ER.24H PO SCH (05:32)
[2018-06-17] MEDS: LEVOTHYROXINE 150 MCG TABLET PO SCH (05:32)
[2018-06-17] MEDS: ASPIRIN 81 MG TABLET EC PO SCH (05:32)
[2018-06-17] MEDS: OMEPRAZOLE 20 MG CAPSULE.DR PO SCH (07:30)
[2018-06-17 07:37] VITALS: BP 125/75
[2018-06-17] MEDS: FERROUS SULFATE 325 MG TABLET PO SCH (08:00)
[2018-06-17] MEDS: TAMSULOSIN 0.4 MG CAP.ER.24H PO SCH (09:00)
[2018-06-17] MEDS: SENNA/DOCUSATE TABLET PO SCH (09:00)
[2018-06-17] MEDS: LISINOPRIL 5 MG TABLET PO SCH (09:00)
[2018-06-17] MEDS: APIXABAN 5 MG TABLET PO SCH ×2 (09:28→19:53)
[2018-06-17] MEDS: FUROSEMIDE 40 MG TABLET PO SCH ×2 (09:29→19:53)
[2018-06-17 13:13] VITALS: BP 125/71
[2018-06-17 18:33] VITALS: BP 119/76
[2018-06-17] MEDS: LOVASTATIN 10 MG TABLET PO SCH (19:55)
[2018-06-18 00:08] VITALS: BP 127/81
[2018-06-18] MEDS: ASPIRIN 81 MG TABLET EC PO SCH (06:00)
[2018-06-18] MEDS: METOPROLOL SUCCINATE 25 MG TAB.ER.24H PO SCH (06:00)
[2018-06-18] MEDS: LEVOTHYROXINE 150 MCG TABLET PO SCH (06:19)
[2018-06-18] MEDS: OMEPRAZOLE 20 MG CAPSULE.DR PO SCH (07:30)
[2018-06-18 07:48] VITALS: BP 130/84
[2018-06-18] MEDS: APIXABAN 5 MG TABLET PO SCH ×2 (08:51→20:39)
[2018-06-18] MEDS: TAMSULOSIN 0.4 MG CAP.ER.24H PO SCH (08:52)
[2018-06-18] MEDS: LISINOPRIL 5 MG TABLET PO SCH (08:52)
[2018-06-18] MEDS: FUROSEMIDE 40 MG TABLET PO SCH ×2 (08:52→20:39)
[2018-06-18] MEDS: SENNA/DOCUSATE TABLET PO SCH (08:52)
[2018-06-18 13:56] VITALS: BP 133/85
[2018-06-18 18:38] VITALS: BP 137/80
[2018-06-18] MEDS: LOVASTATIN 10 MG TABLET PO SCH (20:28)
[2018-06-19 00:39] VITALS: BP 119/72
[2018-06-19] MEDS: METOPROLOL SUCCINATE 25 MG TAB.ER.24H PO SCH (06:00)
[2018-06-19] MEDS: ASPIRIN 81 MG TABLET EC PO SCH (06:00)
[2018-06-19] MEDS: LEVOTHYROXINE 150 MCG TABLET PO SCH (06:37)
[2018-06-19 07:17] VITALS: BP 127/79
[2018-06-19] MEDS: OMEPRAZOLE 20 MG CAPSULE.DR PO SCH (07:30)
[2018-06-19] MEDS: LISINOPRIL 5 MG TABLET PO SCH (07:57)
[2018-06-19] MEDS: SENNA/DOCUSATE TABLET PO SCH (07:57)
[2018-06-19] MEDS: FERROUS SULFATE 325 MG TABLET PO SCH (07:57)
[2018-06-19] MEDS: FUROSEMIDE 40 MG TABLET PO SCH ×2 (08:23→20:16)
[2018-06-19] MEDS: TAMSULOSIN 0.4 MG CAP.ER.24H PO SCH (08:23)
[2018-06-19] MEDS: APIXABAN 5 MG TABLET PO SCH ×2 (08:23→20:15)
[2018-06-19 14:00] VITALS: BP 123/78
[2018-06-19 18:43] VITALS: BP 138/79
[2018-06-19] MEDS: LOVASTATIN 10 MG TABLET PO SCH (21:00)
[2018-06-20 02:33] VITALS: BP 128/77
[2018-06-20] MEDS: METOPROLOL SUCCINATE 25 MG TAB.ER.24H PO SCH (06:00)
[2018-06-20] MEDS: ASPIRIN 81 MG TABLET EC PO SCH (06:00)
[2018-06-20] MEDS: LEVOTHYROXINE 150 MCG TABLET PO SCH (06:24)
[2018-06-20] MEDS: OMEPRAZOLE 20 MG CAPSULE.DR PO SCH (07:30)
[2018-06-20 07:39] VITALS: BP 125/86
[2018-06-20] MEDS: LISINOPRIL 5 MG TABLET PO SCH (08:39)
[2018-06-20] MEDS: TAMSULOSIN 0.4 MG CAP.ER.24H PO SCH (08:39)
[2018-06-20] MEDS: APIXABAN 5 MG TABLET PO SCH ×2 (08:39→19:41)
[2018-06-20] MEDS: SENNA/DOCUSATE TABLET PO SCH (08:39)
[2018-06-20] MEDS: FUROSEMIDE 40 MG TABLET PO SCH ×2 (08:39→19:41)
[2018-06-20 13:00] VITALS: BP 127/82
[2018-06-20 18:35] VITALS: BP 130/82
[2018-06-20] MEDS: LOVASTATIN 10 MG TABLET PO SCH (19:41)
[2018-06-21 02:20] VITALS: BP 115/71
[2018-06-21] MEDS: ASPIRIN 81 MG TABLET EC PO SCH (05:28)
[2018-06-21] MEDS: LEVOTHYROXINE 150 MCG TABLET PO SCH (05:28)
[2018-06-21] MEDS: METOPROLOL SUCCINATE 25 MG TAB.ER.24H PO SCH (05:28)
[2018-06-21 06:47] VITALS: BP 119/75
[2018-06-21] MEDS: FERROUS SULFATE 325 MG TABLET PO SCH (08:00)
[2018-06-21] MEDS: TAMSULOSIN 0.4 MG CAP.ER.24H PO SCH (08:46)
[2018-06-21] MEDS: APIXABAN 5 MG TABLET PO SCH ×2 (08:46→19:56)
[2018-06-21] MEDS: FUROSEMIDE 40 MG TABLET PO SCH ×2 (08:46→19:56)
[2018-06-21] MEDS: OMEPRAZOLE 20 MG CAPSULE.DR PO SCH (08:47)
[2018-06-21] MEDS: SENNA/DOCUSATE TABLET PO SCH (08:47)
[2018-06-21] MEDS: LISINOPRIL 5 MG TABLET PO SCH (08:49)
[2018-06-21 12:10] VITALS: BP 114/76
[2018-06-21 18:40] VITALS: BP 127/82
[2018-06-21] MEDS: LOVASTATIN 10 MG TABLET PO SCH (19:57)
[2018-06-22 03:44] VITALS: BP 119/76
[2018-06-22] MEDS: ASPIRIN 81 MG TABLET EC PO SCH ×2 (06:00→20:19)
[2018-06-22] MEDS: METOPROLOL SUCCINATE 25 MG TAB.ER.24H PO SCH ×2 (06:00→20:19)
[2018-06-22] MEDS: LEVOTHYROXINE 150 MCG TABLET PO SCH (06:14)
[2018-06-22 06:43] VITALS: BP 126/80
[2018-06-22] MEDS: OMEPRAZOLE 20 MG CAPSULE.DR PO SCH (08:43)
[2018-06-22] MEDS: SENNA/DOCUSATE TABLET PO SCH (08:43)
[2018-06-22] MEDS: FUROSEMIDE 40 MG TABLET PO SCH ×2 (08:43→21:54)
[2018-06-22] MEDS: APIXABAN 5 MG TABLET PO SCH ×2 (08:43→21:54)
[2018-06-22] MEDS: LISINOPRIL 5 MG TABLET PO SCH (08:43)
[2018-06-22] MEDS: TAMSULOSIN 0.4 MG CAP.ER.24H PO SCH (08:43)
[2018-06-22 12:03] VITALS: BP 119/72
[2018-06-22 20:00] VITALS: BP 111/77
[2018-06-22] MEDS: LOVASTATIN 10 MG TABLET PO SCH (20:19)
[2018-06-23 03:55] VITALS: BP 101/64
[2018-06-23] MEDS: LEVOTHYROXINE 150 MCG TABLET PO SCH (05:16)
[2018-06-23 06:49] VITALS: BP 114/72
[2018-06-23] MEDS: OMEPRAZOLE 20 MG CAPSULE.DR PO SCH (07:30)
[2018-06-23] MEDS: LISINOPRIL 5 MG TABLET PO SCH (09:00)
[2018-06-23] MEDS: SENNA/DOCUSATE TABLET PO SCH (09:00)
[2018-06-23] MEDS: TAMSULOSIN 0.4 MG CAP.ER.24H PO SCH (09:00)
[2018-06-23] MEDS: APIXABAN 5 MG TABLET PO SCH ×2 (10:16→20:42)
[2018-06-23] MEDS: FERROUS SULFATE 325 MG TABLET PO SCH (10:16)
[2018-06-23] MEDS: FUROSEMIDE 40 MG TABLET PO SCH ×2 (10:16→20:42)
[2018-06-23 13:03] VITALS: BP 115/77
[2018-06-23] MEDS: ASPIRIN 81 MG TABLET EC PO SCH (19:23)
[2018-06-23] MEDS: LOVASTATIN 10 MG TABLET PO SCH (19:23)
[2018-06-23] MEDS: METOPROLOL SUCCINATE 25 MG TAB.ER.24H PO SCH (19:23)
[2018-06-23 20:05] VITALS: BP 120/82
[2018-06-24 01:47] VITALS: BP 124/81
[2018-06-24] MEDS: LEVOTHYROXINE 150 MCG TABLET PO SCH (05:00)
[2018-06-24] MEDS: OMEPRAZOLE 20 MG CAPSULE.DR PO SCH (07:30)
[2018-06-24 07:39] VITALS: BP 137/80
[2018-06-24] MEDS: TAMSULOSIN 0.4 MG CAP.ER.24H PO SCH (09:00)
[2018-06-24] MEDS: LISINOPRIL 5 MG TABLET PO SCH (09:00)
[2018-06-24] MEDS: SENNA/DOCUSATE TABLET PO SCH (09:00)
[2018-06-24] MEDS: APIXABAN 5 MG TABLET PO SCH ×2 (10:03→20:20)
[2018-06-24] MEDS: FUROSEMIDE 40 MG TABLET PO SCH ×2 (10:03→20:20)
[2018-06-24 12:44] VITALS: BP 132/83
[2018-06-24 19:10] VITALS: BP 137/88
[2018-06-24] MEDS: LOVASTATIN 10 MG TABLET PO SCH (20:21)
[2018-06-25 01:38] VITALS: BP 128/81
[2018-06-25] MEDS: METOPROLOL SUCCINATE 25 MG TAB.ER.24H PO SCH (06:00)
[2018-06-25] MEDS: ASPIRIN 81 MG TABLET EC PO SCH (06:00)
[2018-06-25] MEDS: LEVOTHYROXINE 150 MCG TABLET PO SCH (06:14)
[2018-06-25 06:51] VITALS: BP 129/83
[2018-06-25] MEDS: OMEPRAZOLE 20 MG CAPSULE.DR PO SCH (07:30)
[2018-06-25] MEDS: FERROUS SULFATE 325 MG TABLET PO SCH (08:00)
[2018-06-25] MEDS: LISINOPRIL 5 MG TABLET PO SCH (09:00)
[2018-06-25] MEDS: TAMSULOSIN 0.4 MG CAP.ER.24H PO SCH (09:00)
[2018-06-25] MEDS: SENNA/DOCUSATE TABLET PO SCH (09:00)
[2018-06-25] MEDS: APIXABAN 5 MG TABLET PO SCH ×2 (10:00→21:01)
[2018-06-25] MEDS: FUROSEMIDE 40 MG TABLET PO SCH ×2 (10:00→21:02)
[2018-06-25 12:45] VITALS: BP 130/80
[2018-06-25 19:14] VITALS: BP 124/70
[2018-06-25] MEDS: LOVASTATIN 10 MG TABLET PO SCH (21:00)
[2018-06-26 02:00] VITALS: BP 114/72
[2018-06-26] MEDS: ASPIRIN 81 MG TABLET EC PO SCH (06:00)
[2018-06-26] MEDS: METOPROLOL SUCCINATE 25 MG TAB.ER.24H PO SCH (06:00)
[2018-06-26] MEDS: LEVOTHYROXINE 150 MCG TABLET PO SCH (06:56)
[2018-06-26 07:10] VITALS: BP 113/71
[2018-06-26] MEDS: OMEPRAZOLE 20 MG CAPSULE.DR PO SCH (07:30)
[2018-06-26] MEDS: SENNA/DOCUSATE TABLET PO SCH (08:31)
[2018-06-26] MEDS: TAMSULOSIN 0.4 MG CAP.ER.24H PO SCH (08:31)
[2018-06-26] MEDS: FUROSEMIDE 40 MG TABLET PO SCH ×2 (08:31→19:42)
[2018-06-26] MEDS: LISINOPRIL 5 MG TABLET PO SCH (08:31)
[2018-06-26] MEDS: APIXABAN 5 MG TABLET PO SCH ×2 (08:31→19:43)
[2018-06-26 14:00] VITALS: BP 114/72
[2018-06-26 19:10] VITALS: BP 132/83
[2018-06-26] MEDS: LOVASTATIN 10 MG TABLET PO SCH (19:43)
[2018-06-27 00:47] VITALS: BP 126/78
[2018-06-27] MEDS: METOPROLOL SUCCINATE 25 MG TAB.ER.24H PO SCH ×2 (06:00→19:19)
[2018-06-27] MEDS: ASPIRIN 81 MG TABLET EC PO SCH ×2 (06:00→19:19)
[2018-06-27] MEDS: LEVOTHYROXINE 150 MCG TABLET PO SCH (06:09)
[2018-06-27 07:05] VITALS: BP 116/76
[2018-06-27] MEDS: FERROUS SULFATE 325 MG TABLET PO SCH (07:13)
[2018-06-27] MEDS: OMEPRAZOLE 20 MG CAPSULE.DR PO SCH (07:13)
[2018-06-27] MEDS: SENNA/DOCUSATE TABLET PO SCH ×2 (07:14→09:30)
[2018-06-27] MEDS: TAMSULOSIN 0.4 MG CAP.ER.24H PO SCH (09:00)
[2018-06-27] MEDS: LISINOPRIL 5 MG TABLET PO SCH (09:00)
[2018-06-27] MEDS: APIXABAN 5 MG TABLET PO SCH ×2 (09:32→21:05)
[2018-06-27] MEDS: FUROSEMIDE 40 MG TABLET PO SCH ×2 (09:32→21:06)
[2018-06-27 14:00] VITALS: BP 137/68
[2018-06-27] MEDS ORDERED: SENNA/DOCUSATE TABLET PO ONE (17:30)
[2018-06-27] MEDS: LOVASTATIN 10 MG TABLET PO SCH (19:19)
[2018-06-27 19:23] VITALS: BP 129/79
[2018-06-28 02:36] VITALS: BP 129/71
[2018-06-28] MEDS: LEVOTHYROXINE 150 MCG TABLET PO SCH (05:41)
[2018-06-28 06:45] VITALS: BP 116/79
[2018-06-28] MEDS: OMEPRAZOLE 20 MG CAPSULE.DR PO SCH (07:30)
[2018-06-28] MEDS: LISINOPRIL 5 MG TABLET PO SCH (07:53)
[2018-06-28] MEDS: TAMSULOSIN 0.4 MG CAP.ER.24H PO SCH (07:53)
[2018-06-28] MEDS: APIXABAN 5 MG TABLET PO SCH ×2 (08:10→20:20)
[2018-06-28] MEDS: FUROSEMIDE 40 MG TABLET PO SCH ×2 (08:10→20:20)
[2018-06-28] MEDS: SENNA/DOCUSATE TABLET PO SCH (08:10)
[2018-06-28 13:05] VITALS: BP 118/73
[2018-06-28 19:07] VITALS: BP 132/80
[2018-06-28] MEDS: LOVASTATIN 10 MG TABLET PO SCH (20:21)
[2018-06-29 01:41] VITALS: BP 121/79
[2018-06-29] MEDS: ASPIRIN 81 MG TABLET EC PO SCH (04:43)
[2018-06-29] MEDS: METOPROLOL SUCCINATE 25 MG TAB.ER.24H PO SCH (04:44)
[2018-06-29] MEDS: LEVOTHYROXINE 150 MCG TABLET PO SCH (06:06)
[2018-06-29 07:00] VITALS: BP 130/72
[2018-06-29] MEDS: OMEPRAZOLE 20 MG CAPSULE.DR PO SCH (07:22)
[2018-06-29] MEDS: FERROUS SULFATE 325 MG TABLET PO SCH (07:22)
[2018-06-29] MEDS: SENNA/DOCUSATE TABLET PO SCH (07:23)
[2018-06-29] MEDS: LISINOPRIL 5 MG TABLET PO SCH (07:23)
[2018-06-29] MEDS: TAMSULOSIN 0.4 MG CAP.ER.24H PO SCH (07:23)
[2018-06-29] MEDS: APIXABAN 5 MG TABLET PO SCH ×2 (08:02→20:15)
[2018-06-29] MEDS: FUROSEMIDE 40 MG TABLET PO SCH ×2 (08:02→20:15)
[2018-06-29 13:00] VITALS: BP 115/75
[2018-06-29 18:52] VITALS: BP 127/80
[2018-06-29] MEDS: LOVASTATIN 10 MG TABLET PO SCH (20:15)
[2018-06-30 00:29] VITALS: BP 111/68
[2018-06-30] MEDS: ASPIRIN 81 MG TABLET EC PO SCH (04:35)
[2018-06-30] MEDS: METOPROLOL SUCCINATE 25 MG TAB.ER.24H PO SCH (04:35)
[2018-06-30] MEDS: LEVOTHYROXINE 150 MCG TABLET PO SCH (05:40)
[2018-06-30 06:59] VITALS: BP 106/66
[2018-06-30] MEDS: OMEPRAZOLE 20 MG CAPSULE.DR PO SCH (07:07)
[2018-06-30] MEDS: TAMSULOSIN 0.4 MG CAP.ER.24H PO SCH ×2 (07:08→08:54)
[2018-06-30] MEDS: SENNA/DOCUSATE TABLET PO SCH (07:08)
[2018-06-30] MEDS: LISINOPRIL 5 MG TABLET PO SCH (07:08)
[2018-06-30] MEDS: APIXABAN 5 MG TABLET PO SCH ×2 (08:46→20:23)
[2018-06-30] MEDS: FUROSEMIDE 40 MG TABLET PO SCH ×2 (08:46→20:24)
[2018-06-30 12:57] VITALS: BP 118/79
[2018-06-30 19:30] VITALS: BP 116/73
[2018-06-30] MEDS: LOVASTATIN 10 MG TABLET PO SCH (20:25)
[2018-07-01 00:28] VITALS: BP 115/60
[2018-07-01] MEDS: ASPIRIN 81 MG TABLET EC PO SCH (04:20)
[2018-07-01] MEDS: METOPROLOL SUCCINATE 25 MG TAB.ER.24H PO SCH (04:21)
[2018-07-01] MEDS: LEVOTHYROXINE 150 MCG TABLET PO SCH (05:24)
[2018-07-01] MEDS: OMEPRAZOLE 20 MG CAPSULE.DR PO SCH (07:30)
[2018-07-01 09:22] VITALS: BP 116/73
[2018-07-01] MEDS: SENNA/DOCUSATE TABLET PO SCH (10:08)
[2018-07-01] MEDS: FERROUS SULFATE 325 MG TABLET PO SCH (10:08)
[2018-07-01] MEDS: LISINOPRIL 5 MG TABLET PO SCH (10:08)
[2018-07-01] MEDS: FUROSEMIDE 40 MG TABLET PO SCH ×2 (12:18→20:42)
[2018-07-01] MEDS: APIXABAN 5 MG TABLET PO SCH ×2 (12:18→20:42)
[2018-07-01] MEDS: TAMSULOSIN 0.4 MG CAP.ER.24H PO SCH (12:18)
[2018-07-01 13:04] VITALS: BP 120/76
[2018-07-01 18:50] VITALS: BP 121/85
[2018-07-01] MEDS: LOVASTATIN 10 MG TABLET PO SCH (20:42)
[2018-07-02 00:13] VITALS: BP 107/67
[2018-07-02] MEDS: METOPROLOL SUCCINATE 25 MG TAB.ER.24H PO SCH (05:34)
[2018-07-02] MEDS: ASPIRIN 81 MG TABLET EC PO SCH (05:34)
[2018-07-02] MEDS: LEVOTHYROXINE 150 MCG TABLET PO SCH (05:34)
[2018-07-02 06:42] VITALS: BP 108/64
[2018-07-02] MEDS: OMEPRAZOLE 20 MG CAPSULE.DR PO SCH (07:30)
[2018-07-02] MEDS: LISINOPRIL 5 MG TABLET PO SCH (09:00)
[2018-07-02] MEDS: SENNA/DOCUSATE TABLET PO SCH (09:00)
[2018-07-02] MEDS: APIXABAN 5 MG TABLET PO SCH ×2 (12:50→19:50)
[2018-07-02] MEDS: TAMSULOSIN 0.4 MG CAP.ER.24H PO SCH (12:50)
[2018-07-02] MEDS: FUROSEMIDE 40 MG TABLET PO SCH ×2 (12:51→19:50)
[2018-07-02 14:23] VITALS: BP 114/73
[2018-07-02] MEDS: LOVASTATIN 10 MG TABLET PO SCH (19:50)
[2018-07-02 20:34] VITALS: BP 126/79
[2018-07-03 01:44] VITALS: BP 105/68
[2018-07-03] MEDS: METOPROLOL SUCCINATE 25 MG TAB.ER.24H PO SCH (05:49)
[2018-07-03] MEDS: ASPIRIN 81 MG TABLET EC PO SCH (05:49)
[2018-07-03] MEDS: LEVOTHYROXINE 150 MCG TABLET PO SCH (05:50)
[2018-07-03] MEDS: OMEPRAZOLE 20 MG CAPSULE.DR PO SCH (07:30)
[2018-07-03 07:55] VITALS: BP 118/73
[2018-07-03] MEDS: FERROUS SULFATE 325 MG TABLET PO SCH (08:00)
[2018-07-03] MEDS: LISINOPRIL 5 MG TABLET PO SCH (09:00)
[2018-07-03] MEDS: SENNA/DOCUSATE TABLET PO SCH (09:00)
[2018-07-03] MEDS: APIXABAN 5 MG TABLET PO SCH ×2 (10:54→20:07)
[2018-07-03] MEDS: FUROSEMIDE 40 MG TABLET PO SCH ×2 (10:54→20:07)
[2018-07-03] MEDS: TAMSULOSIN 0.4 MG CAP.ER.24H PO SCH (10:54)
[2018-07-03 14:32] VITALS: BP 118/76
[2018-07-03 19:18] VITALS: BP 125/79
[2018-07-03] MEDS: LOVASTATIN 10 MG TABLET PO SCH (20:07)
[2018-07-04 00:47] VITALS: BP 116/72
[2018-07-04] MEDS: LEVOTHYROXINE 150 MCG TABLET PO SCH (05:05)
[2018-07-04] MEDS: METOPROLOL SUCCINATE 25 MG TAB.ER.24H PO SCH (05:05)
[2018-07-04] MEDS: ASPIRIN 81 MG TABLET EC PO SCH (05:05)
[2018-07-04] MEDS: OMEPRAZOLE 20 MG CAPSULE.DR PO SCH (07:15)
[2018-07-04 08:30] VITALS: BP 125/78
[2018-07-04] MEDS: SENNA/DOCUSATE TABLET PO SCH (09:00)
[2018-07-04] MEDS: LISINOPRIL 5 MG TABLET PO SCH (09:00)
[2018-07-04] MEDS: TAMSULOSIN 0.4 MG CAP.ER.24H PO SCH (09:11)
[2018-07-04] MEDS: FUROSEMIDE 40 MG TABLET PO SCH ×2 (09:12→19:38)
[2018-07-04] MEDS: APIXABAN 5 MG TABLET PO SCH ×2 (09:12→19:37)
[2018-07-04 12:50] VITALS: BP 114/73
[2018-07-04] MEDS: LOVASTATIN 10 MG TABLET PO SCH (19:42)
[2018-07-04 19:43] VITALS: BP 114/73
[2018-07-05 01:20] VITALS: BP 110/73
[2018-07-05] MEDS: LEVOTHYROXINE 150 MCG TABLET PO SCH (05:14)
[2018-07-05] MEDS: METOPROLOL SUCCINATE 25 MG TAB.ER.24H PO SCH (05:15)
[2018-07-05] MEDS: ASPIRIN 81 MG TABLET EC PO SCH (05:15)
[2018-07-05] MEDS: OMEPRAZOLE 20 MG CAPSULE.DR PO SCH (07:30)
[2018-07-05 07:35] VITALS: BP 115/71
[2018-07-05] MEDS: FERROUS SULFATE 325 MG TABLET PO SCH (07:35)
[2018-07-05] MEDS: TAMSULOSIN 0.4 MG CAP.ER.24H PO SCH (08:36)
[2018-07-05] MEDS: FUROSEMIDE 40 MG TABLET PO SCH ×2 (08:36→21:25)
[2018-07-05] MEDS: APIXABAN 5 MG TABLET PO SCH ×2 (08:36→21:25)
[2018-07-05] MEDS: LISINOPRIL 5 MG TABLET PO SCH (08:36)
[2018-07-05] MEDS: SENNA/DOCUSATE TABLET PO SCH (08:37)
[2018-07-05 12:20] VITALS: BP 113/74
[2018-07-05 19:17] VITALS: BP 128/78
[2018-07-05] MEDS: LOVASTATIN 10 MG TABLET PO SCH (21:00)
[2018-07-06 01:54] VITALS: BP 119/76
[2018-07-06] MEDS: LEVOTHYROXINE 150 MCG TABLET PO SCH (05:23)
[2018-07-06] MEDS: ASPIRIN 81 MG TABLET EC PO SCH (05:23)
[2018-07-06] MEDS: METOPROLOL SUCCINATE 25 MG TAB.ER.24H PO SCH (05:23)
[2018-07-06 06:49] VITALS: BP 123/76
[2018-07-06] MEDS: OMEPRAZOLE 20 MG CAPSULE.DR PO SCH (07:30)
[2018-07-06] MEDS: APIXABAN 5 MG TABLET PO SCH ×2 (08:26→21:53)
[2018-07-06] MEDS: TAMSULOSIN 0.4 MG CAP.ER.24H PO SCH (08:26)
[2018-07-06] MEDS: FUROSEMIDE 40 MG TABLET PO SCH ×2 (08:26→21:54)
[2018-07-06] MEDS: LISINOPRIL 5 MG TABLET PO SCH (08:28)
[2018-07-06] MEDS: SENNA/DOCUSATE TABLET PO SCH (08:28)
[2018-07-06 13:50] VITALS: BP 121/79
[2018-07-06 19:16] VITALS: BP 118/74
[2018-07-06] MEDS: LOVASTATIN 10 MG TABLET PO SCH (21:00)
[2018-07-07 01:03] VITALS: BP 116/75
[2018-07-07] MEDS: METOPROLOL SUCCINATE 25 MG TAB.ER.24H PO SCH (06:00)
[2018-07-07] MEDS: ASPIRIN 81 MG TABLET EC PO SCH (06:00)
[2018-07-07] MEDS: LEVOTHYROXINE 150 MCG TABLET PO SCH (06:12)
[2018-07-07] MEDS: FERROUS SULFATE 325 MG TABLET PO SCH (08:00)
[2018-07-07 08:08] VITALS: BP 113/70
[2018-07-07] MEDS: SENNA/DOCUSATE TABLET PO SCH (09:00)
[2018-07-07] MEDS: LISINOPRIL 5 MG TABLET PO SCH (09:00)
[2018-07-07] MEDS: OMEPRAZOLE 20 MG CAPSULE.DR PO SCH (09:43)
[2018-07-07] MEDS: TAMSULOSIN 0.4 MG CAP.ER.24H PO SCH (09:43)
[2018-07-07] MEDS: FUROSEMIDE 40 MG TABLET PO SCH ×2 (09:43→21:09)
[2018-07-07] MEDS: APIXABAN 5 MG TABLET PO SCH ×2 (09:43→21:10)
[2018-07-07 14:10] VITALS: BP 115/73
[2018-07-07 19:07] VITALS: BP 118/77
[2018-07-07] MEDS: LOVASTATIN 10 MG TABLET PO SCH (21:00)
[2018-07-08 04:26] VITALS: BP 122/74
[2018-07-08 05:42] LABS: BASOPHILS # (AUTO) 0.05 x10^3/uL (0-0.1); BASOPHILS % (AUTO) 1 % (0-1); EOSINOPHILS # (AUTO) 0.37 x10^3/uL (0-0.4); EOSINOPHILS % (AUTO) 10 % (1-7); LYMPHOCYTES # (AUTO) 0.51 x10^3/uL (1-3.4); LYMPHOCYTES % (AUTO) 13 % (22-44); MD NO; MEAN CORPUSCULAR HEMOGLOBIN 31.1 pg (27.5-34.5); MEAN CORPUSCULAR HGB CONC 32.8 g/dL (33.2-36.2); MEAN CORPUSCULAR VOLUME 94.8 fL (81-97); MEAN PLATELET VOLUME 8.2 fL (7.4-10.4); MONOCYTES # (AUTO) 0.52 x10^3/uL (0.2-0.8); MONOCYTES % (AUTO) 13 % (2-9); NEUTROPHILS # (AUTO) 2.41 x10^3/uL (1.8-6.8); NEUTROPHILS % (AUTO) 62 % (42-75); PLATELET COUNT 191 x10^3/uL (130-400); RED BLOOD COUNT 2.97 x10^6/uL (4.38-5.82)
[2018-07-08 05:52] LABS: ALBUMIN 2.2 g/dL (3.4-5.0); CALCIUM 8.5 mg/dL (8.5-10.1); CHLORIDE 92 mmol/L (98-107)
[2018-07-08] MEDS: METOPROLOL SUCCINATE 25 MG TAB.ER.24H PO SCH (06:00)
[2018-07-08 06:02] LABS: CREATININE 0.77 mg/dL (0.7-1.3)
[2018-07-08] MEDS: ASPIRIN 81 MG TABLET EC PO SCH (06:16)
[2018-07-08] MEDS: LEVOTHYROXINE 150 MCG TABLET PO SCH (06:16)
[2018-07-08 06:37] VITALS: BP 123/78
[2018-07-08 06:56] LABS: ANION GAP 1 mmol/L (5-15)
[2018-07-08] MEDS: OMEPRAZOLE 20 MG CAPSULE.DR PO SCH (07:30)
[2018-07-08] MEDS: LISINOPRIL 5 MG TABLET PO SCH (07:31)
[2018-07-08] MEDS: SENNA/DOCUSATE TABLET PO SCH (07:31)
[2018-07-08] MEDS: APIXABAN 5 MG TABLET PO SCH ×2 (07:46→20:27)
[2018-07-08] MEDS: TAMSULOSIN 0.4 MG CAP.ER.24H PO SCH (07:46)
[2018-07-08] MEDS: FUROSEMIDE 40 MG TABLET PO SCH (07:46)
[2018-07-08 12:07] VITALS: BP 111/70
[2018-07-08 19:35] VITALS: BP 115/74
[2018-07-08] MEDS: LOVASTATIN 10 MG TABLET PO SCH (20:27)
[2018-07-09 01:03] VITALS: BP 112/68
[2018-07-09] MEDS: LEVOTHYROXINE 150 MCG TABLET PO SCH (05:49)
[2018-07-09] MEDS: METOPROLOL SUCCINATE 25 MG TAB.ER.24H PO SCH (05:49)
[2018-07-09] MEDS: ASPIRIN 81 MG TABLET EC PO SCH (05:49)
[2018-07-09 06:49] VITALS: BP 112/67
[2018-07-09] MEDS: FERROUS SULFATE 325 MG TABLET PO SCH (07:14)
[2018-07-09] MEDS: OMEPRAZOLE 20 MG CAPSULE.DR PO SCH (07:14)
[2018-07-09] MEDS: SENNA/DOCUSATE TABLET PO SCH (07:15)
[2018-07-09] MEDS: LISINOPRIL 5 MG TABLET PO SCH (07:15)
[2018-07-09] MEDS ORDERED: OMEP-110 PO (07:37)
[2018-07-09] MEDS ORDERED: TAMS-11 PO (07:37)
[2018-07-09] MEDS ORDERED: APIX5TAB PO (07:37)
[2018-07-09] MEDS ORDERED: LEVO150T PO (07:37)
[2018-07-09] MEDS ORDERED: LISI5TAB7 PO (07:37)
[2018-07-09] MEDS ORDERED: METO25TA91 PO (07:37)
[2018-07-09] MEDS ORDERED: FURO40TA6 PO (07:37)
[2018-07-09] MEDS ORDERED: FERR-51 PO (07:37)
[2018-07-09] MEDS ORDERED: LOVA10TA PO (07:37)
[2018-07-09] MEDS ORDERED: SENN1TAB8 PO (07:37)
[2018-07-09] MEDS ORDERED: ASPI81TA45 PO (07:37)
[2018-07-09] MEDS: APIXABAN 5 MG TABLET PO SCH ×2 (08:07→08:09)
[2018-07-09] MEDS: TAMSULOSIN 0.4 MG CAP.ER.24H PO SCH ×2 (08:07→08:09)
[2018-07-09] MEDS: FUROSEMIDE 40 MG TABLET PO SCH ×2 (08:07→08:09)
[2018-07-09] MEDS ORDERED: FERROUS SULFATE 325 MG TABLET PO SCH (09:00)
== END 2018-07-09 13:34 | DRG 853 ==
LOC: SUATTDRO 20:28 → ED 20:46 → EDIP 21:15 → 4WST 21:46 → 3NE 04-22 12:12
PROVIDERS: ADMIT Hospitalist; ATTEND Internal Medicine
PROC: 0T7D8ZZ Dilation of Urethra, Via Natural or Artificial Opening Endoscopic (ICD-10-PCS; 2018-03-14)
PROC: 2W0LX6Z Change Pressure Dressing on Right Lower Extremity (ICD-10-PCS; 2018-03-14)
PROC: 0Y6H0Z1 Detachment at Right Lower Leg, High, Open Approach (ICD-10-PCS; 2018-03-14 09:00)
PROC: 30233N1 Transfusion of Nonautologous Red Blood Cells into Peripheral Vein, Percutaneous Approach (ICD-10-PCS; 2018-03-16)
PROC: 02HV33Z Insertion of Infusion Device into Superior Vena Cava, Percutaneous Approach (ICD-10-PCS; principal; 2018-03-17)
PROC: B5181ZA Fluoroscopy of Superior Vena Cava using Low Osmolar Contrast, Guidance (ICD-10-PCS; 2018-03-17)
PROC: B548ZZA Ultrasonography of Superior Vena Cava, Guidance (ICD-10-PCS; 2018-03-17)
PROC: 0QBJ0ZZ Excision of Right Fibula, Open Approach (ICD-10-PCS; 2018-03-18)
PROC: 0QBG0ZZ Excision of Right Tibia, Open Approach (ICD-10-PCS; 2018-03-18)
PROC: 02PYX3Z Removal of Infusion Device from Great Vessel, External Approach (ICD-10-PCS; 2018-03-22)
PROC: 0T9B70Z Drainage of Bladder with Drainage Device, Via Natural or Artificial Opening (ICD-10-PCS; 2018-03-27)
DX: A41.9 Sepsis, unspecified organism (principal); E43 Unspecified severe protein-calorie malnutrition; I50.43 Acute on chronic combined systolic (congestive) and diastolic (congestive) heart failure; J15.6 Pneumonia due to other Gram-negative bacteria; J96.01 Acute respiratory failure with hypoxia; D62 Acute posthemorrhagic anemia; D68.59 Other primary thrombophilia; E11.52 Type 2 diabetes mellitus with diabetic peripheral angiopathy with gangrene; E87.0 Hyperosmolality and hypernatremia; F15.20 Other stimulant dependence, uncomplicated; I82.612 Acute embolism and thrombosis of superficial veins of left upper extremity; I82.A12 Acute embolism and thrombosis of left axillary vein; N17.9 Acute kidney failure, unspecified; T82.868A Thrombosis due to vascular prosthetic devices, implants and grafts, initial encounter; M86.8X7 Other osteomyelitis, ankle and foot; E87.3 Alkalosis; T50.2X5A Adverse effect of carbonic-anhydrase inhibitors, benzothiadiazides and other diuretics, initial encounter; D63.8 Anemia in other chronic diseases classified elsewhere; E05.00 Thyrotoxicosis with diffuse goiter without thyrotoxic crisis or storm; E11.21 Type 2 diabetes mellitus with diabetic nephropathy; E11.41 Type 2 diabetes mellitus with diabetic mononeuropathy; E11.621 Type 2 diabetes mellitus with foot ulcer; E11.69 Type 2 diabetes mellitus with other specified complication; E66.01 Morbid (severe) obesity due to excess calories; E87.5 Hyperkalemia; E89.0 Postprocedural hypothyroidism; E87.6 Hypokalemia; F10.10 Alcohol abuse, uncomplicated; F12.10 Cannabis abuse, uncomplicated; F17.210 Nicotine dependence, cigarettes, uncomplicated; F31.9 Bipolar disorder, unspecified; G60.8 Other hereditary and idiopathic neuropathies; I11.0 Hypertensive heart disease with heart failure; I25.10 Atherosclerotic heart disease of native coronary artery without angina pectoris; I37.1 Nonrheumatic pulmonary valve insufficiency; B95.61 Methicillin susceptible Staphylococcus aureus infection as the cause of diseases classified elsewhere; B96.4 Proteus (mirabilis) (morganii) as the cause of diseases classified elsewhere; B95.1 Streptococcus, group B, as the cause of diseases classified elsewhere; B95.4 Other streptococcus as the cause of diseases classified elsewhere; K21.9 Gastro-esophageal reflux disease without esophagitis; K52.9 Noninfective gastroenteritis and colitis, unspecified; L97.519 Non-pressure chronic ulcer of other part of right foot with unspecified severity; L97.529 Non-pressure chronic ulcer of other part of left foot with unspecified severity; M1A.9XX0 Chronic gout, unspecified, without tophus (tophi); N40.1 Benign prostatic hyperplasia with lower urinary tract symptoms; R33.8 Other retention of urine; Z51.5 Encounter for palliative care; Z53.20 Procedure and treatment not carried out because of patient's decision for unspecified reasons; Z59.0 Homelessness; Z66 Do not resuscitate; Z74.01 Bed confinement status; Z79.01 Long term (current) use of anticoagulants; Z79.82 Long term (current) use of aspirin; Z91.14 Patient's other noncompliance with medication regimen; Z91.19 Patient's noncompliance with other medical treatment and regimen; Z91.5 Personal history of self-harm; Z92.3 Personal history of irradiation; Z91.012 Allergy to eggs; Y84.8 Other medical procedures as the cause of abnormal reaction of the patient, or of later complication, without mention of misadventure at the time of the procedure; Y92.238 Other place in hospital as the place of occurrence of the external cause; K59.00 Constipation, unspecified
CPT/HCPCS: 36415; 73100; 73630; 74018; 77001; 84145; 87806; 99291; J3490; 36569; 70450; 71045; 74176; 76770; 76937; 80048; 80053; 80061; 80076; 80202; 80307; 81001; 82040; 82272; 82565; 82570; 82728; 82962; 83036; 83540; 83550; 83605; 83735; 83880; 84100; 84134; 84300; 84439; 84443; 84466; 84484; 84520; 84540; 84550; 85025; 85520; 85610; 85651; 86140; 86480; 86704; 86706; 86803; 86850; 86900; 86923; 87040; 87070; 87077; 87086; 87147; 87186; 87205; 87324; 87340; 88307; 93005; 93306; 93922; 93925; 93970; 96365; A9585; G0378; J0171; J0690; J0696; J1644; J1650; J1756; J1940; J2250; J2405; J2543; J2704; J2710; J2795; J3010; J3370; P9047; Q0162; 92523-GN; C1751; G0475; J1815; J2270; J2370; J3475; J7030; J7040; P9016